=== PATIENT | female | born 1980 | race American Indian/Alaskan Native ===

== ENCOUNTER 2016-11-21 07:20 | Emergency (ER) | payer MEDICAID ==
[2016-11-21 08:30] LABS: Basophils % (Auto) 0.6 % (0.0-1.8); Eosinophils % (Auto) 1.9 % (0.0-4.3); Hemoglobin 12.7 gm/dl (10.1-14.3); Mean Corpuscular HGB Conc 33 % (30-34); Mean Corpuscular Hemoglobin 26 pg (28-32); Mean Corpuscular Volume 81 fl (79-97); Platelet Count 253 K/mm3 (140-440); Red Blood Count 4.83 M/mm3 (3.65-5.03); Red Cell Distribution Width 14.1 % (13.2-15.2); White Blood Count 5.2 K/mm3 (4.5-11.0)
[2016-11-21 08:31] LABS: Anion Gap 18 mmol/L; Blood Urea Nitrogen 6 mg/dL (7-17); Calcium 8.7 mg/dL (8.4-10.2); Carbon Dioxide 23 mmol/L (22-30); Chloride 101.8 mmol/L (98-107); Glucose 171 mg/dL (65-100); Potassium 3.9 mmol/L (3.6-5.0); Sodium 139 mmol/L (137-145)
[2016-11-21 09:21] LABS: Bilirubin,Urine NEG (Negative); Blood,Urine NEG (Negative); Ketones,Urine NEG (Negative); Leukocyte Esterase,Urine LG (Negative); Mucus,Urine FEW /HPF; Nitrite,Urine NEG (Negative); Protein,Urine <15 mg/dL mg/dL (Negative); Urobilinogen,Urine < 2.0 mg/dL (<2.0)
--- NOTE | 2016-11-21 11:36 | Ultrasound Report ---
TRANSABDOMINAL AND TRANSVAGINAL OBSTETRICAL ULTRASOUND:11/21/16 07:20:00 CLINICAL: Abdominal pain with a positive test. FINDINGS: Transabdominal and transvaginal ultrasound demonstrated a single intrauterine gestational sac measuring 5.4 mm and remain sac diameter. No yolk sac or pole identified. Cervix is closed. A posterior lower uterine segment intramural fibroid measures 3.0 cm. No adnexal mass or free fluid. A 1.5 cm cyst of the right ovary normal left ovary.The right ovary measured 3.4 x 2.6 x 3.3cm. The left ovary measured 2.5 x 1.8 x 3.4cm. IMPRESSION: Single intrauterine at approximately 5 weeks gestation based on gestational sac size. EDC based on ultrasound is 07/22/17. EDC based on LMP is 07/27/17.
[2016-11-21 12:32] VITALS: BP 121/66
--- NOTE | 2016-11-21 12:33 | Emergency Department Report ---
ED General Adult HPI - General Chief complaint: Abdominal Pain Stated complaint: / SEVERE CRAMPING Time Seen by Provider: 11/21/16 10:35 Source: patient Mode of arrival: Ambulatory Limitations: No Limitations - History of Present Illness Initial comments: The patient stated that she noted discomfort in her left inguinal area. She has not had a period this month. Therefore she decided to be evaluated in the emergency department. She denies fever chills nausea vomiting diarrhea or difficulty in urinating. She's had no dysuria. She denies vaginal bleeding. She is 5 now including this . At this time she is asymptomatic. -: Gradual Location: abdomen, left Radiation: non-radiation Quality: aching Consistency: now resolved Improves with: none Worsens with: none Associated Symptoms: denies other symptoms Treatments Prior to Arrival: none - Related Data Allergies Allergy/AdvReac Type Severity Reaction Status Date / Time No Known Allergies Allergy Unverified 11/21/16 07:48 ED Review of Systems ROS: Stated complaint: / SEVERE CRAMPING Other details as noted in HPI Constitutional: denies: chills, fever Eyes: denies: eye pain, eye discharge, vision change ENT: denies: ear pain, throat pain Respiratory: denies: cough, shortness of breath, wheezing Cardiovascular: denies: chest pain, palpitations Endocrine: no symptoms reported Gastrointestinal: as per HPI, abdominal pain. denies: nausea, diarrhea Genitourinary: denies: urgency, dysuria, discharge Musculoskeletal: denies: back pain, joint swelling, arthralgia Skin: denies: rash, lesions Neurological: denies: headache, weakness, paresthesias Psychiatric: denies: anxiety, depression Hematological/Lymphatic: denies: easy bleeding, easy bruising ED Past Medical Hx - Past Medical History Previous Medical History?: No - Surgical History Past Surgical History?: No - Social History Smoking Status: Never Smoker Substance Use Type: None ED Physical Exam - General Limitations: No Limitations General appearance: alert, in no apparent distress - Head Head exam: Present: atraumatic, normocephalic - Eye Eye exam: Present: normal appearance. Absent: scleral icterus - ENT ENT exam: Present: mucous membranes moist - Neck Neck exam: Present: normal inspection - Respiratory Respiratory exam: Present: normal lung sounds bilaterally. Absent: respiratory distress - Cardiovascular Cardiovascular Exam: Present: regular rate, normal rhythm. Absent: systolic murmur, diastolic murmur, rubs, gallop - GI/Abdominal GI/Abdominal exam: Present: soft, normal bowel sounds. Absent: distended, tenderness, guarding, rebound, rigid, organomegaly, mass, bruit, pulsatile mass , hernia - Extremities Exam Extremities exam: Present: normal inspection - Back Exam Back exam: Present: normal inspection - Neurological Exam Neurological exam: Present: alert, oriented X3, CN II-XII intact. Absent: motor sensory deficit - Psychiatric Psychiatric exam: Present: normal affect, normal mood - Skin Skin exam: Present: warm, dry, intact, normal color. Absent: rash ED Course Vital Signs 11/21/16 07:42 Temperature 98.2 F Pulse Rate 91 H Respiratory 18 Rate Blood Pressure 119/74 O2 Sat by Pulse 100 Oximetry - Reevaluation(s) Reevaluation #1: Patient is asymptomatic at this time. Her ultrasound result was noted. Most likely this is an early intrauterine . The patient will require follow -up ultrasound and perhaps quantitative hCGs. She was counseled as to the importance of follow-up. A urinalysis result is likely secondary to contamination. 11/21/16 12:29 11/21/16 12:30 ED Medical Decision Making - Lab Data Result diagrams: 11/21/16 07:56 11/21/16 07:56 Laboratory Results - last 24 hr 11/21/16 11/21/16 11/21/16 07:56 07:56 08:08 WBC 5.2 RBC 4.83 Hgb 12.7 Hct 39.0 MCV 81 MCH 26 L MCHC 33 RDW 14.1 Plt Count 253 Lymph % (Auto) 31.5 [place] % (Auto) 9.5 H Eos % (Auto) 1.9 Baso % (Auto) 0.6 Lymph # 1.6 [place] # 0.5 Eos # 0.1 Baso # 0.0 Seg Neutrophils % 56.5 Seg Neutrophils # 3.0 Sodium 139 Potassium 3.9 Chloride 101.8 Carbon Dioxide 23 Anion Gap 18 BUN 6 L Creatinine 0.6 L Estimated GFR > 60 BUN/Creatinine Ratio 10.00 Glucose 171 H Calcium 8.7 HCG, Quant Urine Color Yellow Urine Turbidity Slightly-cloudy Urine pH 5.0 Ur Specific [place] 1.025 Urine Protein <15 mg/dl Urine Glucose (UA) 50 Urine Ketones Neg Urine Blood Neg Urine Nitrite Neg Ur Reducing Substances Not Reportable Urine Bilirubin Neg Urine Ictotest Not Reportable Urine Urobilinogen < 2.0 Ur Leukocyte Esterase Lg Urine WBC (Auto) 19.0 H Urine RBC (Auto) 6.0 U Epithel Cells (Auto) 19.0 H Urine Mucus Few Urine HCG, Qual Positive A Blood Type Ord Rhogam Gestat Weeks 11/21/16 11/21/16 11:24 11:24 WBC RBC Hgb Hct MCV MCH MCHC RDW Plt Count Lymph % (Auto) [place] % (Auto) Eos % (Auto) Baso % (Auto) Lymph # [place] # Eos # Baso # Seg Neutrophils % Seg Neutrophils # Sodium Potassium Chloride Carbon Dioxide Anion Gap BUN Creatinine Estimated GFR BUN/Creatinine Ratio Glucose Calcium HCG, Quant 1083 H Urine Color Urine Turbidity Urine pH Ur Specific [place] Urine Protein Urine Glucose (UA) Urine Ketones Urine Blood Urine Nitrite Ur Reducing Substances Urine Bilirubin Urine Ictotest Urine Urobilinogen Ur Leukocyte Esterase Urine WBC (Auto) Urine RBC (Auto) U Epithel Cells (Auto) Urine Mucus Urine HCG, Qual Blood Type O POSITIVE Ord Rhogam Gestat Weeks Rh pos Critical care attestation.: If time is entered above; I have spent that time in minutes in the direct care of this critically ill patient, excluding procedure time. ED Disposition Clinical Impression: Intrauterine Abdominal pain Qualifiers: Abdominal location: left lower quadrant Qualified Code(s): R10.32 - Left lower quadrant pain Disposition: TO HOME OR SELFCARE Is pt being admited?: No Does the pt Need Aspirin: No Condition: Stable Instructions: Abdominal Pain (ED), (ED) Additional Instructions: You will require follow-up ultrasound, follow-up care and evaluation by OB. Return any acute change or problem. Referrals: PRIMARY MD CECELIA [Primary Care Provider] - 3-5 Days DANA LARA MD [Staff Physician] - 2-3 Days Time of Disposition: 12:33
== END 2016-11-21 13:06 | disposition home or self-care (01) ==
LOC: ED 07:20
DX: O26.891 Other specified pregnancy related conditions, first trimester (principal); R10.32 Left lower quadrant pain; Z3A.01 Less than 8 weeks gestation of pregnancy
CPT/HCPCS: 36415; 76801; 76817; 80048; 81001; 81025; 84702; 85025; 86900; 86901

== ENCOUNTER 2017-05-16 17:51 | Outpatient (CLI) | payer MEDICAID ==
[2017-05-16 18:27] VITALS: BP 117/56
[2017-05-16] MEDS ORDERED: LACTATED RINGERS 500 ML IV ONE (19:00)
[2017-05-16] MEDS ORDERED: VISTARIL PO PRN (19:51)
--- NOTE | 2017-05-16 20:01 | Ultrasound Report ---
FINAL REPORT PROCEDURE: US OB LIMITED TECHNIQUE: Real-time limited sonographic examination was performed for evaluation of size, position, heartbeat, fluid volume for each fetus with image documentation (1 or more fetuses). CPT 18985 HISTORY: s/p fall COMPARISON: No prior studies are available for comparison. FINDINGS: Single viable fetus. Cephalic position. Grade 1 anterior placenta. Heart rate 150 beats per minute. Cervical length 3.5 centimeters. No evidence of placental abruption. IMPRESSION: No evidence of placental abruption.
== END 2017-05-16 20:13 | disposition home or self-care (01) ==
LOC: TRG 17:51
PROVIDERS: ATTEND Obstetrics & Gynecology
DX: O09.523 Supervision of elderly multigravida, third trimester (principal); O47.03 False labor before 37 completed weeks of gestation, third trimester; W19.XXXD Unspecified fall, subsequent encounter; Z3A.29 29 weeks gestation of pregnancy
CPT/HCPCS: 76815; Q0177

== ENCOUNTER 2017-06-22 14:58 | Outpatient (CLI) | payer MEDICAID ==
[2017-06-22] MEDS ORDERED: LACTATED RINGERS 1,000 ML IV ONE ×2 (16:50→19:00)
[2017-06-22 17:40] LABS: Bacteria,Urine 2+ /HPF (Negative); Bilirubin,Urine NEG (Negative); Blood,Urine NEG (Negative); Color,Urine Yellow (Yellow); Mucus,Urine FEW /HPF; Nitrite,Urine NEG (Negative); Protein,Urine <15 mg/dL mg/dL (Negative); Urobilinogen,Urine < 2.0 mg/dL (<2.0)
[2017-06-22] MEDS ORDERED: TYLENOL PO ONE (19:08)
[2017-06-22 19:30] LABS: Alanine Aminotransferase 9 units/L (7-56); Albumin 3.2 g/dL (3.9-5); BUN/Creatinine Ratio 10; Blood Urea Nitrogen 5 mg/dL (7-17); Calcium 8.9 mg/dL (8.4-10.2); Hemolysis Index 0
[2017-06-22] MEDS ORDERED: STADOL ONE ×2 (19:33→22:38)
[2017-06-22] MEDS ORDERED: STADOL IV ONE (20:22)
--- NOTE | 2017-06-22 22:20 | Ultrasound Report ---
FINAL REPORT PROCEDURE: Limited obstetrical ultrasound. TECHNIQUE: Real-time limited sonographic examination was performed for evaluation of size, position, heartbeat, fluid volume for each fetus with image documentation (1 or more fetuses). CPT 69849 HISTORY: Gestational diabetes, noncompliant. COMPARISON: Limited obstetrical ultrasound 05/16/2017. FINDINGS: There is a single viable fetus in cephalic presentation. Cardiac activity is documented at 164 beats per minute. Amniotic fluid pockets were measured in four quadrants. The largest pocket measured 7.7 centimeters. The amniotic fluid index measures 22.8 centimeters. IMPRESSION: Single viable fetus in cephalic presentation. Amniotic fluid index of 22.8 centimeters.
--- NOTE | 2017-06-22 22:21 | Ultrasound Report ---
FINAL REPORT PROCEDURE: Ultrasound biophysical profile without nonstress test. TECHNIQUE: Sonographic evaluation for breathing, movement, tone, and amniotic fluid volume was performed. CPT 43496 HISTORY: Gestational diabetes mellitus, noncompliant with treatment. COMPARISON: None. FINDINGS: Amniotic fluid volume: 2. breathin. movement: 2. tone: 2. Score: 8 of 8. IMPRESSION: Normal biophysical profile.
[2017-06-22] MEDS ORDERED: STADOL IV PRN (22:37)
--- NOTE | 2017-06-22 23:56 | History and Physical Report ---
History of Present Illness Date of examination: 06/22/17 Chief complaint: NR NST in office and uterine contractions History of present illness: EDC Confirmation: 07/27/2017 Gestational Age: 5 weeks Past History : 6 Term Births: 3 Premature Births: 2 Living Children: 5 Para: 3 Mult. Births: 1 Prev : 0 Aborta: 1 Elect. Ab: 1 # 1 Delivery date: 1994 Weeks Gestation: 42 labor: no Delivery type: Delivery location: [place] Infant Sex: Female weight: 7#14 Comments: no complications # 2 Delivery date: 1998 Weeks Gestation: 16w Delivery type: D&E Delivery location: [place] Comments: quadruplets - was told "something was wrong with them and would need lifelong care" # 3 Delivery date: 2000 Weeks Gestation: 27 Delivery type: Delivery location: [place] Sex: male/female weight: 6#/4# Comments: Twins, confirmed: 27weeks, twin to twin transfusion, induced - born vaginally. # 4 Delivery date: 1999 Weeks Gestation: 40 labor: no Delivery type: Delivery location: [place] Infant Sex: Female weight: 7#14 Comments: no complications # 5 Delivery date: 2005 Weeks Gestation: 40 labor: no Delivery type: Delivery location: [place] Infant Sex: Male weight: 6#13 Comments: no complications Risk Factors: Smoked Tobacco Use: Never smoker Smokeless Tobacco Use: Never Passive smoke exposure: no Drug use: no HIV high-risk behavior: no Caffeine use: <1 drinks per day Alcohol use: no Exercise: no Seatbelt use: 100 % Family History Risk Factors: Family History of KS in females < 65 years old: no Family History of KS in males < 55 years old: no Dietary Counseling: pn yes Past Medical History: Negative Past Medical History Abnormal Pap Smear - abnormal cells 2014, no colpo or bx. f/u pap 2016 NL Past Surgical History: D&E for natually occuring quadruplets - patient states she was told they " all had problems and would need life long care." unsure on type of problem. patient states she was put to sleep and the babies were removed, she did not deliver. 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 patient states she was put to sleep and the babies were removed, she did not deliver. Abnormal PAP: yes Family Hx: mother - DM and HTN no known FX breast cancer Maternal aunt - stomach cancer Social Hx: Single [employer] no etoh/drugs/smoking Infection History Hx of STD: none HIV Risk Eval: no Hepatitis B Risk Eval: low risk Personal hx. of genital herpes: no Partner hx. of genital herpes: no Rash, Viral, or Febrile illness since last LMP? no Varicella/Chicken Pox Status: Previous Disease TB Risk: no Genetic History ADVANCED MATERNAL AGE Congenital Heart Defect: Mom: no Dad: no Alanis Disease: Mom: no Dad: no Thalassemia Mom: no Dad: no Neural Tube Defect Mom: no Dad: no Down's Syndrome Mom: no Dad: no Arnulfo-Sachs Mom: no Dad: no Sickle Cell Disease/Trait Mom: no Dad: no Hemophilia Mom: no Dad: no Muscular Dystrophy Mom: no Dad: no Cystic Fibrosis Mom: no Dad: no Mcclain Chorea Mom: no Dad: no Mental Retardation Mom: no Dad: no Fragile X Mom: no Dad: no Other Genetic/Chromosomal Disorder Mom: no Dad: no Child w/other defect Mom: yes Dad: no Other: see surgical hx Comments/Counseling: AMA Enviromental Exposures Xray Exposure: no Medication, drug, or alcohol use since LMP: no Chemical/Other Exposure: no Exposure to Cat Liter: no Hx of Parvovirus (Fifth Disease): no Occupational Exposure to Children: none Current Allergies (reviewed today): * LATEX (Critical) Past History - Obstetrical History Expected Date of Delivery: 07/27/17 Actual Gestation: 35 Week(s) 0 Day(s) : 7 Medications and Allergies Allergies Allergy/AdvReac Type Severity Reaction Status Date / Time No Known Allergies Allergy Verified 06/22/17 15:41 Home Medications Medication Instructions Recorded Confirmed Last Taken Type Amoxicillin [Amoxicillin] 1 tab PO BID 06/22/17 06/22/17 06/21/17 09:00 History 1 Insulin NPH Human Isophane 26 units SQ DAILY 06/22/17 06/22/17 06/21/17 20:30 History [Novolin N] 1 Insulin NPH Human Isophane 60 units SQ QAM 06/22/17 06/22/17 06/21/17 07:30 History [Novolin N] 1 Insulin Regular, Human Inj 26 units SQ QPM 06/22/17 06/22/17 06/21/17 20:30 History [NovoLIN R Inj] 1 Insulin Regular, Human Inj 32 units SQ QAM 06/22/17 06/22/17 06/21/17 07:30 History [NovoLIN R Inj] 1 Pnv,Calcium 72/Iron/Folic Acid 1 each PO DAILY 06/22/17 06/22/17 06/22/17 09:00 History [Preplus Ca-Fe 27 mg-FA 1 mg Tb] 1 Active Meds: Active Medications Butorphanol Tartrate (Stadol) 2 mg IV Q2H PRN PRN Reason: Labor Pain Last Admin: 06/22/17 22:40 Dose: 2 mg Review of Systems All systems: negative Genitourinary: contractions - Vital Signs Vital signs: Vital Signs Pulse BP 96 H 116/58 06/22/17 15:47 06/22/17 15:47 Temp Pulse Resp BP Pulse Ox 97.3 F L 99 H 20 132/70 06/22/17 19:15 06/22/17 19:46 06/22/17 19:15 06/22/17 19:46 - Physical Exam Genitourinary (Female): Positive: normal external genitalia, normal perenium - Obstetrical FHR: category 1 Uterine Contraction Monitor Mode: External Cervical Dilatation: 1 Cervical Effacement Percentage: 20 station: -4 Results Result Diagrams: 06/22/17 18:45 Abnormal lab results 06/22/17 06/22/17 Range/Units 16:30 18:45 BUN 5 L (7-17) mg/dL Creatinine 0.5 L (0.7-1.2) mg/dL POC Glucose 110 H (70-105) Alkaline Phosphatase 202 H (35-129) units/L Total Protein 5.8 L (6.3-8.2) g/dL Albumin 3.2 L (3.9-5) g/dL All other labs normal. Assessment and Plan - Patient Problems (1) 35 weeks gestation of Current Visit: Yes Status: Acute (2) Uterine contractions during Current Visit: Yes Status: Acute Plan to address problem: No cervical change, she continues to complain of painful contractions. She's admitted now for therapeutic rest (3) Gestational diabetes Current Visit: Yes Status: Chronic Qualifiers: Trimester: third trimester Plan to address problem: Continue accuchecks for now
[2017-06-23] MEDS ORDERED: PROCARDIA*For Tocolysis only PO SCH (03:00)
[2017-06-23] MEDS ORDERED: D50W (25GM) Syringe IV PRN ×3 (03:02→03:39)
[2017-06-23] MEDS: NOVOLOG SUB-Q SCH ×2 (03:59→07:56)
[2017-06-23] MEDS ORDERED: NOVOLOG SUB-Q SCH (04:00)
--- NOTE | 2017-06-23 07:02 | Progress Note ---
Assessment and Plan Pt observed overnight. Ctx irregular, mild, pt reports they do not feel like they did. SVE 1-2,30,-4 Discussed POC with . Pt OOB for AM care, Diet( consistent Carb). Pt is to keep her appt with [facility] today @ 1400. Cat 1 FHT Pt has appt with [facility] in 1 week. Subjective - Subjective Date of service: 06/23/17 (pt resting; states she feels much better) Patient reports: movement normal Objective - Vital Signs Vital Signs: Vital Signs - 12hr 06/22/17 06/22/17 19:15 19:46 Temperature 97.3 F L Pulse Rate 99 H 99 H Respiratory 20 Rate Blood Pressure 132/70 Blood Pressure 132/70 [Right] - Exam Breasts: deferred Cardiovascular: Regular rate Lungs: Clear to auscultation Abdomen: Present: normal appearance, soft. Absent: distention, tenderness Uterus: Present: normal FHR: auscultation normal, category 1 Uterine Contraction Monitor Mode: External Cervical Dilatation: 1.5 Cervical Effacement Percentage: 30 station: -4 Uterine Contraction Pattern: Irregular Uterine Tone Measurement Phase: Resting Uterine Contraction Intensity: Mild Extremities: edema Deep Tendon Reflex Grade: Normal +2 - Labs Labs: Abnormal Labs 06/22/17 06/22/17 06/23/17 16:30 18:45 02:24 BUN 5 L Creatinine 0.5 L POC Glucose 110 H 241 H Alkaline Phosphatase 202 H Total Protein 5.8 L Albumin 3.2 L Laboratory Results - last 24 hr 06/22/17 06/22/17 06/22/17 16:30 17:00 18:45 Sodium 140 Potassium 3.9 Chloride 101.3 Carbon Dioxide 22 Anion Gap 21 BUN 5 L Creatinine 0.5 L Estimated GFR > 60 BUN/Creatinine Ratio 10 Glucose 89 POC Glucose 110 H Calcium 8.9 Total Bilirubin 0.30 AST 11 ALT 9 Alkaline Phosphatase 202 H Total Protein 5.8 L Albumin 3.2 L Albumin/Globulin Ratio 1.2 Urine Color Yellow Urine Turbidity Clear Urine pH 6.0 Ur Specific [place] 1.011 Urine Protein <15 mg/dl Urine Glucose (UA) Neg Urine Ketones 20 Urine Blood Neg Urine Nitrite Neg Urine Bilirubin Neg Urine Urobilinogen < 2.0 Ur Leukocyte Esterase Tr Urine WBC (Auto) 2.0 Urine RBC (Auto) 2.0 U Epithel Cells (Auto) 2.0 Urine Bacteria (Auto) 2+ Urine Mucus Few 06/23/17 02:24 Sodium Potassium Chloride Carbon Dioxide Anion Gap BUN Creatinine Estimated GFR BUN/Creatinine Ratio Glucose POC Glucose 241 H Calcium Total Bilirubin AST ALT Alkaline Phosphatase Total Protein Albumin Albumin/Globulin Ratio Urine Color Urine Turbidity Urine pH Ur Specific [place] Urine Protein Urine Glucose (UA) Urine Ketones Urine Blood Urine Nitrite Urine Bilirubin Urine Urobilinogen Ur Leukocyte Esterase Urine WBC (Auto) Urine RBC (Auto) U Epithel Cells (Auto) Urine Bacteria (Auto) Urine Mucus
[2017-06-23 07:36] VITALS: BP 113/66
--- NOTE | 2017-06-23 08:11 | Discharge Summary ---
Providers - Providers Date of discharge: 06/23/17 (pt agrees with d/c; has appt with [facility] today @ 1400 ) Attending physician: ANNALISE RAMOS Primary care physician: ANNALISE RAMOS Hospitalization Reason for admission: contractions Condition: Good Hospital course: Pt sent from office with c/o pain and nonreactive NST . Pt noted to be having ctx. BPP 8/8 Therapeutic rest overnight BS monitored SS insulin Pt received dose this morning @ 0400 Fasting BS 149. Diet given AM care. D/C instructions given: keep appt with [facility] today and appt with our office in 1 week. Pt instructed to call with any concerns. Disposition: DC-01 TO HOME OR SELFCARE - Discharge Diagnoses (1) Uterine contractions during Status: Acute Core Measure Documentation - Palliative Care Palliative Care/ Comfort Measures: Not Applicable - Core Measures Any of the following diagnoses?: none - VTE Discharge Requirements Deep Vein Thrombosis/Pulmonary Embolism Present on Admission: No Has pt received <5 days of overlap therapy or INR<2.0: No Anticoagulant overlap therapy prescribed at discharge: No Contraindication No Overlap Therapy order at DC: Medical Contraindication - Acute [place] Discharge Requirements Aspirin at discharge: No Reason for no aspirin on DC: Medical contraindication JOLEEN/ARB for LVSD if EF <40%: Not Applicable Beta yovani at discharge: No Reason for no beta yovani on DC: Medical contraindication Statin for LDL = or >100 mg/dl on DC: Not Applicable - Heart Failure Discharge Requirements JOLEEN/ARB for LVSD if EF <40%: Not Applicable Beta yovani at discharge: No Reason for no beta yovani on DC: Medical contraindication - Stroke Discharge Requirements Statin for LDL = or >70 mg/dl on DC: Not Applicable Anticoag for atrial fib/atrial flutter: Not Applicable Antithrombotic for ischemic stroke: No Reason for no antithrombotic on DC: Medical Contraindication Exam - Constitutional Vitals: Temp Pulse Resp BP Pulse Ox 96.5 F L 99 H 24 113/66 06/23/17 07:36 06/23/17 07:39 06/23/17 07:36 06/23/17 07:39 General appearance: Present: no acute distress, well-nourished - EENT Eyes: Present: PERRL ENT: hearing intact, clear oral mucosa - Neck Neck: Present: supple, normal ROM - Respiratory Respiratory effort: normal Respiratory: bilateral: CTA - Cardiovascular Heart Sounds: Present: S1 & S2. Absent: rub, click - Extremities Extremities: pulses symmetrical, No edema Peripheral Pulses: within normal limits - Abdominal General gastrointestinal: Present: deferred Female genitourinary: Present: normal - Rectal Rectal Exam: deferred - Integumentary Integumentary: Present: clear, warm, dry - Musculoskeletal Musculoskeletal: gait normal, strength equal bilaterally - Psychiatric Psychiatric: appropriate mood/affect, intact judgment & insight - Neurologic Neurologic: CNII-XII intact, moves all extremities Plan Activity: no restrictions Weight Bearing Status: Weight Bear as Tolerated Diet: other (diabetic diet as instructed) Follow up with: ANNALISE RAMOS MD [Primary Care Provider] - 06/29/17 3:30 pm (Keep appointment with [facility] today. Monitor blood sugars as instructed. Monitor movement. Keep appointment Wednesday06-29-17 @ 3:30PM in our office. Call with concerns.) Forms: [facility] Discharge Summary
[2017-06-23] MEDS ORDERED: CELESTONE SOLUSPAN IM SCH (10:00)
== END 2017-06-23 08:59 | disposition home or self-care (01) ==
LOC: TRG 14:58 → LD 14:59 → TRG 06-23 08:59
PROVIDERS: ATTEND Obstetrics & Gynecology
DX: O09.523 Supervision of elderly multigravida, third trimester (principal); O24.419 Gestational diabetes mellitus in pregnancy, unspecified control; O62.9 Abnormality of forces of labor, unspecified; O47.03 False labor before 37 completed weeks of gestation, third trimester; Z3A.35 35 weeks gestation of pregnancy
CPT/HCPCS: 36415; 76815; 76819; 80053; 81001; 82962; 96360; J0595; J7120; J1815

== ENCOUNTER 2017-06-26 12:01 | Outpatient (CLI) | payer MEDICAID ==
[2017-06-26] MEDS ORDERED: LACTATED RINGERS 500 ML IV ONE (12:19)
[2017-06-26] MEDS ORDERED: VISTARIL IM ONE (12:51)
--- NOTE | 2017-06-26 12:59 | History and Physical Report ---
History of Present Illness Date of examination: 06/26/17 (called urgently to parking lot pt delivering in the car; walked to stretcher) Chief complaint: pain is "pulling me a part" History of present illness: EDC Confirmation: 07/27/2017 Gestational Age: 5 weeks Past History : 6 Term Births: 3 Premature Births: 2 Living Children: 5 Para: 3 Mult. Births: 1 Prev : 0 Aborta: 1 Elect. Ab: 1 # 1 Delivery date: 1994 Weeks Gestation: 42 labor: no Delivery type: Delivery location: [facility] Sex: Female weight: 7#14 Comments: no complications # 2 Delivery date: 1998 Weeks Gestation: 16w Delivery type: D&E Delivery location: [place] Comments: quadruplets - was told "something was wrong with them and would need lifelong care" # 3 Delivery date: 2000 Weeks Gestation: 27 Delivery type: Delivery location: [facility] Sex: male/female weight: 6#/4# Comments: Twins, confirmed: 27weeks, twin to twin transfusion, induced - born vaginally. # 4 Delivery date: 1999 Weeks Gestation: 40 labor: no Delivery type: Delivery location: [place] Sex: Female weight: 7#14 Comments: no complications # 5 Delivery date: 2005 Weeks Gestation: 40 labor: no Delivery type: Delivery location: [place] Sex: Male weight: 6#13 Comments: no complications Risk Factors: Smoked Tobacco Use: Never smoker Smokeless Tobacco Use: Never Passive smoke exposure: no Drug use: no HIV high-risk behavior: no Caffeine use: <1 drinks per day Alcohol use: no Exercise: no Seatbelt use: 100 % Family History Risk Factors: Family History of MD in females < 65 years old: no Family History of MD in males < 55 years old: no Dietary Counseling: pn yes Past Medical History: Negative Past Medical History Abnormal Pap Smear - abnormal cells 2014, no colpo or bx. f/u pap 2016 NL Past Surgical History: D&E for natually occuring quadruplets - patient states she was told they " all had problems and would need life long care." unsure on type of problem. patient states she was put to sleep and the babies were removed, she did not deliver. 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 patient states she was put to sleep and the babies were removed, she did not deliver. Abnormal PAP: yes Family Hx: mother - DM and HTN no known FX breast cancer Maternal aunt - stomach cancer Social Hx: Single [employer] no etoh/drugs/smoking Infection History Hx of STD: none HIV Risk Eval: no Hepatitis B Risk Eval: low risk Personal hx. of genital herpes: no Partner hx. of genital herpes: no Rash, Viral, or Febrile illness since last LMP? no Varicella/Chicken Pox Status: Previous Disease TB Risk: no Genetic History ADVANCED MATERNAL AGE Congenital Heart Defect: Mom: no Dad: no Alanis Disease: Mom: no Dad: no Thalassemia Mom: no Dad: no Neural Tube Defect Mom: no Dad: no Down's Syndrome Mom: no Dad: no Arnuflo-Sachs Mom: no Dad: no Sickle Cell Disease/Trait Mom: no Dad: no Hemophilia Mom: no Dad: no Muscular Dystrophy Mom: no Dad: no Cystic Fibrosis Mom: no Dad: no Regina Chorea Mom: no Dad: no Mental Retardation Mom: no Dad: no Fragile X Mom: no Dad: no Other Genetic/Chromosomal Disorder Mom: no Dad: no Child w/other defect Mom: yes Dad: no Other: see surgical hx Comments/Counseling: AMA Enviromental Exposures Xray Exposure: no Medication, drug, or alcohol use since LMP: no Chemical/Other Exposure: no Exposure to Cat Liter: no Hx of Parvovirus (Fifth Disease): no Occupational Exposure to Children: none Current Allergies (reviewed today): * LATEX (Critical) Laboratory Results Routine Urinalysis Leukocytes: negative Nitrite: negative Urobilinogen: negative Protein: Negative Blood: negative Ketone: negative Bilirubin: negative Glucose: Negative Urine HCG: positive Review of Systems General Denies fever, chills, sweats, anorexia, fatigue, weakness, malaise, weight loss and sleep disorder. Denies nausea, vomiting, headache, swelling of legs, abdominal pain, vaginal discharge, vaginal bleeding and contractions. Denies vaginal discharge, incontinence, dysuria, hematuria, urinary frequency, amenorrhea, menorrhagia, abnormal vaginal bleeding, pelvic pain, genital sores, decreased libido, painful periods, painful sex, urinary urgency, hot flashes, vaginal dryness, vaginal itching and vaginal odor. CV Denies chest pains, palpitations, syncope, dyspnea on exertion, orthopnea, PND and peripheral edema. Resp Denies cough, dyspnea at rest, excessive sputum, hemoptysis, wheezing and pleurisy. GI Denies nausea, vomiting, diarrhea, constipation, change in bowel habits, abdominal pain, melena, hematochezia, jaundice, gas/bloating, indigestion/ heartburn, dysphagia and odynophagia. Endo Denies cold intolerance, heat intolerance, polydipsia, polyphagia, polyuria and unusual weight change. Breast Denies left breast lump, right breast lump, nipple discharge, bloody discharge from nipple, breast pain, abnormal mammogram and breast enlargement. MS Denies back pain, joint pain, joint swelling, muscle cramps, muscle weakness, stiffness, arthritis, sciatica, restless legs, leg pain at night and leg pain with exertion. Derm Denies rash, itching, dryness and suspicious lesions. Neuro Denies paralysis, paresthesias, headache, seizures, tremors, vertigo, transient blindness, frequent falls, frequent headaches and difficulty walking. Psych Denies depression, anxiety, irritability and mood swings. Eyes Denies blurring, diplopia, irritation, discharge, vision loss, eye pain and photophobia. ENT Denies earache, ear discharge, tinnitus, decreased hearing, nasal congestion, nosebleeds, sore throat and hoarseness. Allergy Denies urticaria, allergic rash, hay fever and recurrent infections. Heme Denies abnormal bruising, bleeding and enlarged lymph nodes. PHYSICAL EXAM HEENT: PERRLA, normal conjunctiva, external nose and nasal mucosa normal, oropharynx clear Neck/Thyroid: supple, thyroid normal Skin no significant abnormal lesions or rashes Chest: respiratory effort normal, clear to auscultation Breasts: normal without skin changes or masses CV: regular, normal S1-S2, no murmur, no rub, no gallop Abdomen: normal bowel sounds, soft, nontender, no HSM Musculoskeletal: grossly normal ROM in joints, no joint tenderness or muscle weakness Neuro: grossly normal DTRs, sensation, strength, cranial nerves Extremities: no clubbing, cyanosis, or edema [employer] Exams Vulva/Vagina: No lesions, normal BUS, normal rugae Cervix: No lesions; no cervical motion tenderness Uterus: normal size and position, midline, mobile FHT: - Adnexae: no masses or tenderness Rectovaginal: no masses or tenderness Past History - Obstetrical History Expected Date of Delivery: 07/27/17 Actual Gestation: 35 Week(s) 4 Day(s) : 6 Para: 4 Hx # Term Pregnancies: 3 Number of Pregnancies: 1 (twins) Induced : 1 Number of Living Children: 5 Medications and Allergies Allergies Allergy/AdvReac Type Severity Reaction Status Date / Time No Known Allergies Allergy Verified 06/22/17 15:41 Home Medications Medication Instructions Recorded Confirmed Last Taken Type Amoxicillin [Amoxicillin] 1 tab PO BID 06/22/17 06/22/17 06/21/17 09:00 History 1 Insulin NPH Human Isophane 26 units SQ DAILY 06/22/17 06/22/17 06/21/17 20:30 History [Novolin N] 1 Insulin NPH Human Isophane 60 units SQ QAM 06/22/17 06/22/17 06/21/17 07:30 History [Novolin N] 1 Insulin Regular, Human Inj 26 units SQ QPM 06/22/17 06/22/17 06/21/17 20:30 History [NovoLIN R Inj] 1 Insulin Regular, Human Inj 32 units SQ QAM 06/22/17 06/22/17 06/21/17 07:30 History [NovoLIN R Inj] 1 Pnv,Calcium 72/Iron/Folic Acid 1 each PO DAILY 06/22/17 06/22/17 06/22/17 09:00 History [Preplus Ca-Fe 27 mg-FA 1 mg Tb] 1 Active Meds: Active Medications Lactated Ringer's (Lactated Ringers) 1,000 mls @ 125 mls/hr IV DIRECT DANIELITO - Vital Signs Vital signs: Vital Signs Pulse Pulse Ox 100 H 95 06/26/17 12:11 06/26/17 12:11 Temp Pulse Resp BP Pulse Ox 99 H 124/70 98 06/26/17 12:36 06/26/17 12:14 06/26/17 12:36 - Physical Exam Breasts: Positive: deferred Cardiovascular: Regular rate Lungs: Positive: Clear to auscultation, Normal air movement Abdomen: Positive: normal appearance, soft Genitourinary (Female): Positive: normal external genitalia, normal perenium Vulva: both: normal Vagina: Positive: normal moisture Uterus: Positive: normal size, normal contour Anus/Rectum: Positive: normal perianal skin Extremities: Positive: edema Deep Tendon Reflex Grade: Normal +2 - Obstetrical FHR: category 1 Uterine Contraction Monitor Mode: External Cervical Dilatation: 3 Cervical Effacement Percentage: 50 station: -3 Uterine Contraction Pattern: Irregular Uterine Contraction Intensity: Mild Results Result Diagrams: 06/26/17 13:00 All other labs normal. Strep Gp B CONNIE Negative HBsAg Screen Negative Negative *1 Rubella Antibodies, IgG 1.43 index Immune >0.99 *2 Non-immune <0.90 Equivocal 0.90 - 0.99 Immune >0.99 ABO Grouping O *3 Rh Factor Positive *4 Please note: Prior records for this patient's ABO / Rh type are not available for additional verification. Antibody Screen Negative Negative *5 RPR Non Reactive Non Reactive *6 WBC 4.6 x10E3/uL 3.4-10.8 *7 RBC 4.46 x10E6/uL 3.77-5.28 *8 Hemoglobin 11.5 g/dL 11.1-15.9 *9 Hematocrit 35.8 % 34.0-46.6 *10 MCV 80 fL 79-97 *11 MCH [L] 25.8 pg 26.6-33.0 *12 MCHC 32.1 g/dL 31.5-35.7 *13 RDW 14.5 % 12.3-15.4 *14 Platelets 228 x10E3/uL 150-379 *15 Neutrophils 55 % *16 Lymphs 32 % *17 Monocytes 11 % *18 Eos 2 % *19 Basos 0 % *20 ! Immature Cells <No Reported Value> *21 Neutrophils (Absolute) 2.5 x10E3/uL 1.4-7.0 *22 Lymphs (Absolute) 1.5 x10E3/uL 0.7-3.1 *23 Monocytes(Absolute) 0.5 x10E3/uL 0.1-0.9 *24 Eos (Absolute) 0.1 x10E3/uL 0.0-0.4 *25 Baso (Absolute) 0.0 x10E3/uL 0.0-0.2 *26 ! Immature Granulocytes 0 % *27 ! Immature Grans (Abs) 0.0 x10E3/uL 0.0-0.1 *28 ! NRBC <No Reported Value> *29 Hematology Comments: <No Reported Value> *30 Tests: (2) Cystic Fibrosis Profile (112350) ! CF, Screen Comment: *31 RESULTS: Negative for 32 mutations analyzed Tests: (3) HB Solu + Rflx Frac (490376) Hemoglobin (Hgb) Solubility Negative Negative *33 Tests: (4) Panel 777537 ([id number]) HIV Screen 4th Generation wRfx Non Reactive Non Reactive *34 Tests: (5) HCV Ab w/Rflx to Verification (510250) ! HCV Ab 0.1 s/co ratio 0.0-0.9 *35 Tests: (6) Comment: (027278) ! Comment: SPRCS *36 Non reactive HCV antibody screen is consistent with no HCV infection, unless recent infection is suspected or other evidence exists to indicate HCV infection. Tests: (7) Urine Culture, Routine (500297) Urine Culture, Routine Final report *37 Tests: (8) Result ([id number]) ! Result 1 MUG *38 Mixed urogenital jose Greater than 100,000 colony forming units per mL Assessment and Plan 37yo @ 35w4d who arrived by car Her SO came in asking for assistance she was delivering in the car. Pt screaming and thrashing about, denies ROM, Assisted by myself and another RN to Triage bed. SVE 3,50,-3 Pt continues scream out of proportion to assessed pain. EFM on irreg ctx recorded Cat 1 FHR tracing. made aware of pt and her status. US ordered, Labs ordered , IVFs. Vistaril 100mg IM. Pt states she has not had any insulin today. BS 127 Also states told her she had fibroids.(This was not told to us nor M). Re-eval after US - Patient Problems (1) Abdominal pain during in third trimester Onset Date: ~06/26/17 Current Visit: Yes Status: Acute (2) Insulin controlled gestational diabetes mellitus (GDM) in third trimester Onset Date: ~06/26/17 Current Visit: Yes Status: Acute (3) 35 weeks gestation of Onset Date: ~06/26/17 Current Visit: Yes Status: Acute
[2017-06-26] MEDS ORDERED: LACTATED RINGERS 1,000 ML IV SCH (13:00)
[2017-06-26 13:22] LABS: Basophils % (Auto) 0.5 % (0.0-1.8); Eosinophils # (Auto) 0.1 K/mm3 (0.0-0.4); Eosinophils % (Auto) 1.1 % (0.0-4.3); Hematocrit 39.4 % (30.3-42.9); Hemoglobin 12.8 gm/dl (10.1-14.3); Lymphocytes # (Auto) 1.2 K/mm3 (1.2-5.4); Lymphocytes % (Auto) 25.9 % (13.4-35.0); Mean Corpuscular HGB Conc 33 % (30-34); Mean Corpuscular Volume 79 fl (79-97); Monocytes # (Auto) 0.6 K/mm3 (0.0-0.8); Monocytes % (Auto) 13.1 % (0.0-7.3); Platelet Count 235 K/mm3 (140-440); Red Blood Count 4.99 M/mm3 (3.65-5.03); Red Cell Distribution Width 15.1 % (13.2-15.2)
[2017-06-26 13:30] LABS: Bacteria,Urine 1+ /HPF (Negative); Bilirubin,Urine NEG (Negative); Blood,Urine NEG (Negative); Color,Urine Yellow (Yellow); Mucus,Urine FEW /HPF; Protein,Urine <15 mg/dL mg/dL (Negative); Urobilinogen,Urine < 2.0 mg/dL (<2.0)
[2017-06-26 13:31] LABS: Mean Corpuscular Hemoglobin 26 pg (28-32)
[2017-06-26 13:42] LABS: Amphetamine Screen,Urine PRESUMPTIVE NEGATIVE; Benzodiazepines Screen,Urine PRESUMPTIVE NEGATIVE; Cannabinoid Screen,Urine PRESUMPTIVE NEGATIVE; Cocaine Screen,Urine PRESUMPTIVE NEGATIVE; Methadone Screen,Urine PRESUMPTIVE NEGATIVE; Opiate Screen,Urine PRESUMPTIVE NEGATIVE
[2017-06-26] MEDS ORDERED: MORPHINE IM ONE ×2 (14:12→15:00)
--- NOTE | 2017-06-26 14:25 | Ultrasound Report ---
FINAL REPORT EXAM: US OB BPP WO NON-STRESS HISTORY: well being TECHNIQUE: Ultrasound examination of the gravid uterus for biophysical profile evaluation of the fetus PRIORS: 06/30/2017 FINDINGS: There is a single viable intrauterine with documented cardiac activity. The amniotic fluid volume is normal. heart rate: 145 and 157 bpm Amniotic fluid index: 12.9 cm position: Cephalic Placental position: Anterior grade 3 Evaluation for biophysical profile yields the following score as reported by technologist from real-time exam: respiratory motion (minimum one episode): 2 Gross body movement (minimum 3 movements): 2 tone (minimum one flexion and extension): 2 Amniotic fluid volume (at least 2 cm pocket in vertical diameter): 2 IMPRESSION: Single viable intrauterine with 8/8 biophysical profile score during the sonographic evaluation
--- NOTE | 2017-06-26 14:34 | Ultrasound Report ---
FINAL REPORT EXAM: US OB FOLLOW UP HISTORY: well being; abdominal pain TECHNIQUE: Ultrasound evaluation of the gravid uterus PRIORS: 06/22/2017 FINDINGS: There is a single viable intrauterine with documented cardiac activity. Multiple ultrasound measurements are made to determine a composite gestational age. Nonspecific slightly low HC/AC ratio of 0.89 with normal lower limit of 0.93. Nonspecific slightly low FL/AC ratio of 18.9 with lower limit of 20.0. Other ratios are within normal limits. There is no ultrasound evidence of placenta previa or abruption in the visualized placenta. The maternal cervix is obscured by head. The quantity of visualized amniotic fluid appears grossly normal. No sonographic abnormality in the visualized portion of the anatomy. Heart rate: 145 and 157 beats per minute position: Cephalic Placental position: Anterior, grade 3 Amniotic fluid index: 12.9cm Estimated weight: 3941 g Ultrasound estimated gestational age: 38 weeks 5 days Ultrasound estimated delivery date: 07/05/2017 LMP estimated gestational age: 35 weeks 4 days LMP estimated delivery date: 07/27/2017 IMPRESSION: Single viable intrauterine with the above parameters Nonspecific slightly low ratios
[2017-06-26 15:05] VITALS: BP 100/49
--- NOTE | 2017-06-26 16:13 | Discharge Summary ---
Providers - Providers Date of discharge: 06/26/17 (abdominal pain not labor) Attending physician: ARLETTE MEJIA Primary care physician: ARLETTE MEJIA Hospitalization Reason for admission: other (pain) Discharge diagnosis: other (resolution of pain after IM Morphine) Condition at discharge: Good Disposition: DC-01 TO HOME OR SELFCARE - Discharge Diagnoses (1) Abdominal pain during in third trimester Status: Acute (2) Insulin controlled gestational diabetes mellitus (GDM) in third trimester Status: Acute (3) 35 weeks gestation of Status: Acute Plan - Discharge Medications Prescriptions: hydrOXYzine PAMOATE [Vistaril] 25 mg PO BID PRN #15 capsule PRN Reason: Pain - Provider Discharge Summary Activity: routine, no sex for 6 weeks, no heavy lifting 4 weeks, no strenuous exercise Diet: routine Instructions: routine Additional instructions: [] Smoking cessation referral if applicable(refer to patient education folder for contact #) [] Refer to [facility] Booklet Call your doctor immediately for: * Fever > 100.5 * Heavy vaginal bleeding ( >1 pad per hour) * Severe persistent headache * Shortness of breath * Reddened, hot, painful area to leg or breast * Drainage or odor from incision. * Keep incision clean and dry at all times and follow doctor's instructions regarding bathing/showering - Follow up plan Follow up: ARLETTE MEJIA MD [Primary Care Provider] - 06/29/17 3:30 pm (Keep appointment as scheduled with [facility] and in our office 06-29-17 Take medication as prescribed Call with concerns)
== END 2017-06-26 16:47 | disposition home or self-care (01) ==
LOC: TRG 12:01 → LD 13:09 → TRG 16:47
PROVIDERS: ATTEND Obstetrics & Gynecology
DX: O26.893 Other specified pregnancy related conditions, third trimester (principal); R10.9 Unspecified abdominal pain; O47.1 False labor at or after 37 completed weeks of gestation; Z79.899 Other long term (current) drug therapy; Z3A.38 38 weeks gestation of pregnancy
CPT/HCPCS: 36415; 59025; 76816; 76819; 80307; 81001; 82962; 85025; 86850; 86900; 86901; 96360; 96361; 96372; J2270; J3410; J7120

== ENCOUNTER 2017-12-06 20:38 | Emergency (ER) | payer MEDICAID, OTHER ==
[2017-12-06] MEDS ORDERED: NACL 0.9% 1000 ML 1,000 ML IV ONE (22:13)
[2017-12-06 22:37] LABS: Basophils % (Auto) 0.7 % (0.0-1.8); Eosinophils # (Auto) 0.1 K/mm3 (0.0-0.4); Eosinophils % (Auto) 1.2 % (0.0-4.3); Hematocrit 40.1 % (30.3-42.9); Hemoglobin 13.7 gm/dl (10.1-14.3); Lymphocytes # (Auto) 1.9 K/mm3 (1.2-5.4); Lymphocytes % (Auto) 39.4 % (13.4-35.0); Mean Corpuscular HGB Conc 34 % (30-34); Mean Corpuscular Hemoglobin 28 pg (28-32); Mean Corpuscular Volume 82 fl (79-97); Monocytes # (Auto) 0.5 K/mm3 (0.0-0.8); Monocytes % (Auto) 9.3 % (0.0-7.3); Platelet Count 236 K/mm3 (140-440); Red Cell Distribution Width 12.9 % (13.2-15.2)
[2017-12-06 22:40] LABS: INR 0.93 (0.87-1.13); Partial Thromboplastin Time 28.7 Sec. (24.2-36.6)
[2017-12-06 22:53] LABS: Alanine Aminotransferase 17 units/L (7-56); Albumin 4.3 g/dL (3.9-5); BUN/Creatinine Ratio 12; Blood Urea Nitrogen 7 mg/dL (7-17); Calcium 9.2 mg/dL (8.4-10.2); Hemolysis Index 8; Lipase 35 units/L (13-60)
[2017-12-06] MEDS ORDERED: TYLENOL PO ONE (23:59)
[2017-12-06] MEDS ORDERED: TORADOL IV ONE (23:59)
[2017-12-06] MEDS ORDERED: ZOFRAN ODT PO ONE (23:59)
--- NOTE | 2017-12-07 00:17 | Emergency Department Report ---
<CHLOÉ HICKS - Last Filed: 12/07/17 02:43> ED Abdominal Pain HPI - General Chief Complaint: GI Bleed Stated Complaint: ABD PAIN/DIZZINESS/WEAKNESS Time Seen by Provider: 12/06/17 23:14 Source: patient Mode of arrival: Ambulatory Limitations: No Limitations - History of Present Illness Initial Comments: 1 week of intermittent generalized, nonradiating abd pain. Associated with N and 1 episode of emesis 3 days ago. 2 days ago, started having blood BMs (~5 per day). No urinary symptoms. Made worse with food. No fam hx of IBD. No recent travel or abx. Has been feeling lightheaded and weak lately. - Related Data Home Medications Medication Instructions Recorded Confirmed Last Taken Amoxicillin 1 tab PO BID 06/22/17 07/07/17 06/21/17 09:00 1 Insulin NPH Human Isophane 26 units SQ DAILY 06/22/17 07/07/17 06/21/17 20:30 [Novolin N] 1 Insulin NPH Human Isophane 60 units SQ QAM 06/22/17 07/07/17 06/21/17 07:30 [Novolin N] 1 Insulin Regular, Human Inj 26 units SQ QPM 06/22/17 07/07/17 06/21/17 20:30 [NovoLIN R Inj] 1 Insulin Regular, Human Inj 32 units SQ QAM 06/22/17 07/07/17 06/21/17 07:30 [NovoLIN R Inj] 1 Pnv,Calcium 72/Iron/Folic Acid 1 each PO DAILY 06/22/17 07/07/17 06/22/17 09:00 [Preplus Ca-Fe 27 mg-FA 1 mg Tb] 1 Previous Rx's Medication Instructions Recorded Last Taken Type hydrOXYzine PAMOATE [Vistaril] 25 mg PO BID PRN #15 capsule 06/26/17 Unknown Rx Ibuprofen [Motrin 800 MG tab] 800 mg PO Q8HR PRN #30 tablet 07/07/17 Unknown Rx Lidocain2.5%/Prilocai2.5% [Emla] 5 gm TP ONCE PRN #1 tube 07/07/17 Unknown Rx Ondansetron [Zofran Odt] 4 mg PO Q8H PRN #12 tab.rapdis 12/07/17 Unknown Rx Allergies Allergy/AdvReac Type Severity Reaction Status Date / Time No Known Allergies Allergy Verified 06/22/17 15:41 ED Review of Systems ROS: Stated complaint: ABD PAIN/DIZZINESS/WEAKNESS Other details as noted in HPI Comment: All other systems reviewed and negative Constitutional: weakness Gastrointestinal: abdominal pain, nausea, vomiting, hematochezia ED Past Medical Hx - Past Medical History Hx Hypertension: No Hx Congestive Heart Failure: No Hx Diabetes: Yes Hx Deep Vein Thrombosis: No Hx Renal Disease: No Hx Sickle Cell Disease: No Hx Seizures: No Hx Asthma: No Hx COPD: No Hx HIV: No - Surgical History Past Surgical History?: No - Social History Smoking Status: Never Smoker Substance Use Type: None - Medications Home Medications: Home Medications Medication Instructions Recorded Confirmed Last Taken Type Amoxicillin 1 tab PO BID 06/22/17 07/07/17 06/21/17 09:00 History 1 Insulin NPH Human Isophane 26 units SQ DAILY 06/22/17 07/07/17 06/21/17 20:30 History [Novolin N] 1 Insulin NPH Human Isophane 60 units SQ QAM 06/22/17 07/07/17 06/21/17 07:30 History [Novolin N] 1 Insulin Regular, Human Inj 26 units SQ QPM 06/22/17 07/07/17 06/21/17 20:30 History [NovoLIN R Inj] 1 Insulin Regular, Human Inj 32 units SQ QAM 06/22/17 07/07/17 06/21/17 07:30 History [NovoLIN R Inj] 1 Pnv,Calcium 72/Iron/Folic Acid 1 each PO DAILY 06/22/17 07/07/17 06/22/17 09:00 History [Preplus Ca-Fe 27 mg-FA 1 mg Tb] 1 hydrOXYzine PAMOATE [Vistaril] 25 mg PO BID PRN #15 capsule 06/26/17 07/07/17 Unknown Rx Ibuprofen [Motrin 800 MG tab] 800 mg PO Q8HR PRN #30 tablet 07/07/17 Unknown Rx Lidocain2.5%/Prilocai2.5% [Emla] 5 gm TP ONCE PRN #1 tube 07/07/17 Unknown Rx Ondansetron [Zofran Odt] 4 mg PO Q8H PRN #12 tab.rapdis 12/07/17 Unknown Rx ED Physical Exam - General Limitations: No Limitations General appearance: alert, in no apparent distress - Head Head exam: Present: atraumatic, normocephalic - Eye Eye exam: Present: normal appearance - ENT ENT exam: Present: mucous membranes moist - Neck Neck exam: Present: normal inspection - Respiratory Respiratory exam: Present: normal lung sounds bilaterally. Absent: respiratory distress - Cardiovascular Cardiovascular Exam: Present: regular rate, normal rhythm. Absent: systolic murmur, diastolic murmur, rubs, gallop - GI/Abdominal GI/Abdominal exam: Present: soft, tenderness (generalized), normal bowel sounds. Absent: guarding, rebound, rigid - Rectal Rectal exam: Present: heme (-) stool - Extremities Exam Extremities exam: Present: normal inspection - Back Exam Back exam: Present: normal inspection - Neurological Exam Neurological exam: Present: alert, oriented X3 - Psychiatric Psychiatric exam: Present: normal affect, normal mood - Skin Skin exam: Present: warm, dry, intact, normal color. Absent: rash ED Course Vital Signs 12/06/17 21:40 Temperature 98.3 F Pulse Rate 95 H Respiratory 18 Rate Blood Pressure 135/73 O2 Sat by Pulse 99 Oximetry ED Medical Decision Making - Lab Data Result diagrams: 12/06/17 22:19 12/06/17 22:19 - EKG Data EKG shows normal: sinus rhythm, axis, intervals, QRS complexes Rate: normal - EKG Data Interpretation: nonspecific ST-T wave brian - Medical Decision Making 37 yo female with no sig pmhx that p/w abd pain and bloody diarrhea. VSS. Pt is well appearing. Mild abd pain on exam. Lab work, including inflammatory markers are negative. Hgb is 14. Guaiac is negative. Waiting for the results of her UA and CT a/p. Low suspicion for emergent pathology. Likely pt has viral enterocolitis and will need conservative management and out-patient follow up. She has been signed out to Dr. Lawson. - Differential Diagnosis crohn's, uc, EHEC, PUD, gastritis, malignancy, coagulopathy Critical care attestation.: If time is entered above; I have spent that time in minutes in the direct care of this critically ill patient, excluding procedure time. ED Disposition Clinical Impression: Bloody diarrhea Disposition: DC-01 TO HOME OR SELFCARE Is pt being admited?: No Does the pt Need Aspirin: No Condition: Stable Instructions: Infectious Colitis (ED) Additional Instructions: It is likely that your symptoms are caused by a virus and should improve in the next 2-3 days. Focus on staying hydrated during this time. If your symptoms don' t improve follow up with the [facility] for re-evaluation. You can take 975 mg tylenol every 6 hours as needed for pain relief. You can take [id number] imodium to help slow your diarrhea. Take an [id number] probiotic daily until your diarrhea improves. Prescriptions: Ondansetron [Zofran Odt] 4 mg PO Q8H PRN #12 tab.rapdis PRN Reason: Nausea Referrals: PRIMARY CARE,MD [Primary Care Provider] - 3-5 Days Forms: Accompanied Note <MIKI FERRER - Last Filed: 12/07/17 03:34> ED Medical Decision Making - Lab Data Result diagrams: 12/06/17 22:19 12/06/17 22:19 ED Disposition Is pt being admited?: No
[2017-12-07] MEDS ORDERED: TORADOL ONE (02:31)
[2017-12-07] MEDS ORDERED: TYLENOL ONE (02:32)
[2017-12-07] MEDS ORDERED: ZOFRAN ODT ONE (02:32)
--- NOTE | 2017-12-07 03:21 | Cat Scan Report ---
FINAL REPORT EXAM: CT ABDOMEN PELVIS W CON HISTORY: generalized abd pain COMPARISON: None available. TECHNIQUE: Contiguous axial images were obtained. Additional sagittal and coronal reformatted images were obtained. Administration of IV contrast given per institution protocol. Images submitted for interpretation. 100 cc Omnipaque [id number]. FINDINGS: Trace bilateral pleural effusions versus pleural thickening with linear atelectasis or scarring at the lung bases. Findings are more pronounced on the left. Cholelithiasis. No gross focal inflammatory changes the gallbladder or biliary dilatation. Mild diffuse fatty infiltration of the liver. Liver is mildly enlarged measuring 25 centimeters in axial dimension. Spleen and pancreas unremarkable. No adrenal mass. No solid renal lesion or hydronephrosis. 5 millimeter right renal cyst. Aorta and IVC are normal in caliber. Urinary bladder is unremarkable. Heterogeneous enhancement the uterus with probable underlying fibroids. Ovaries are grossly unremarkable. No free fluid or lymphadenopathy in the pelvic cavity. The appendix is normal in caliber measuring 5-6 millimeters in diameter. The appendix is best visualized on the coronal images. No adjacent fat stranding or fluid. Large and small bowel loops normal in caliber. No focal inflammatory changes the bowel. Mild to moderate degenerative changes of the lumbar spine. Lumbar vertebral body heights are preserved. Bony pelvis is grossly intact. IMPRESSION: No focal inflammatory changes of the abdomen and pelvis. Large and small bowel loops normal in caliber. The appendix is normal in caliber. No obstructive uropathy. Cholelithiasis. No gross focal inflammatory changes the gallbladder or biliary dilatation. Heterogeneous appearance of the uterus with probable fibroids. Trace bilateral pleural effusions versus pleural thickening with mild linear atelectasis or scarring at the lung bases. Findings are more pronounced on the left.
[2017-12-07 05:04] VITALS: BP 138/70
== END 2017-12-07 04:05 | disposition home or self-care (01) ==
LOC: ED 20:38
DX: R10.84 Generalized abdominal pain (principal); R19.7 Diarrhea, unspecified; E11.9 Type 2 diabetes mellitus without complications; Z79.4 Long term (current) use of insulin
CPT/HCPCS: 36415; 74177; 80053; 83690; 84703; 85025; 85610; 85652; 85730; 86140; 86850; 86900; 86901; 93005; 93010; 96361; 96374; 99284; J1885; J7030; Q9967; Q0162

== ENCOUNTER 2018-11-08 11:22 | Emergency (ER) | payer MEDICAID, OTHER ==
[2018-11-08 12:09] LABS: HCG Qualitative,Urine Positive (Negative)
[2018-11-08 12:11] LABS: Bacteria,Urine 1+ /HPF (Negative); Bilirubin,Urine NEG (Negative); Blood,Urine SM (Negative); Color,Urine Yellow (Yellow); Mucus,Urine FEW /HPF; Protein,Urine <15 mg/dL mg/dL (Negative); Urobilinogen,Urine < 2.0 mg/dL (<2.0)
[2018-11-08 12:12] LABS: WBC,Urine > 182.0 /HPF (0.0-6.0)
[2018-11-08] MEDS ORDERED: LEVAQUIN PO ONE (12:14)
[2018-11-08] MEDS ORDERED: NACL 0.9% 1000 ML 1,000 ML IV ONE (12:14)
[2018-11-08 13:13] LABS: Basophils % (Auto) 0.7 % (0.0-1.8); Hematocrit 35.4 % (30.3-42.9); Hemoglobin 11.7 gm/dl (10.1-14.3); Lymphocytes # (Auto) 1.4 K/mm3 (1.2-5.4); Lymphocytes % (Auto) 30.1 % (13.4-35.0); Mean Corpuscular HGB Conc 33 % (30-34); Mean Corpuscular Volume 81 fl (79-97); Monocytes # (Auto) 0.4 K/mm3 (0.0-0.8); Monocytes % (Auto) 9.1 % (0.0-7.3); Platelet Count 220 K/mm3 (140-440); Red Blood Count 4.36 M/mm3 (3.65-5.03); Red Cell Distribution Width 14.3 % (13.2-15.2)
--- NOTE | 2018-11-08 13:32 | Emergency Department Report ---
ED Abdominal Pain HPI - General Chief Complaint: Urogenital-Female Stated Complaint: DISCHARGE/BACK PAIN Time Seen by Provider: 11/08/18 11:59 Source: patient Mode of arrival: Ambulatory Limitations: No Limitations - History of Present Illness Initial Comments: 38-year-old female presents to the emergency room complaining of vaginal discharge consistent of white clumpy discharge that causes itchiness and burning upon urination 2 weeks. Patient also complains of lower back pain. Patient does report she has a history of gestational diabetes she last delivered her last baby in July 2017. Patient is 7. Last menstrual period was 08/07/2018. Patient is sexually active with males and protected. Patient currently does not have a primary care provider currently is not being treated for diabetes. MD Complaint: abdominal pain, flank pain Onset/Timin -: week(s) Location: suprapubic, R flank Radiation: suprapubic Severity scale (0 -10): 9 Quality: stabbing, aching, sharp Consistency: constant Improves With: nothing Worsens With: movement Associated Symptoms: other (vaginal discharge) - Related Data LMP Date: 08/07/18 Home Medications Medication Instructions Recorded Confirmed Last Taken Amoxicillin 1 tab PO BID 06/22/17 07/07/17 06/21/17 09:00 1 Insulin NPH Human Isophane 26 units SQ DAILY 06/22/17 07/07/17 06/21/17 20:30 [Novolin N] 1 Insulin NPH Human Isophane 60 units SQ QAM 06/22/17 07/07/17 06/21/17 07:30 [Novolin N] 1 Insulin Regular, Human Inj 26 units SQ QPM 06/22/17 07/07/17 06/21/17 20:30 [NovoLIN R Inj] 1 Insulin Regular, Human Inj 32 units SQ QAM 06/22/17 07/07/17 06/21/17 07:30 [NovoLIN R Inj] 1 Previous Rx's Medication Instructions Recorded Last Taken Type hydrOXYzine PAMOATE [Vistaril] 25 mg PO BID PRN #15 capsule 06/26/17 Unknown Rx Ibuprofen [Motrin 800 MG tab] 800 mg PO Q8HR PRN #30 tablet 07/07/17 Unknown Rx Lidocain2.5%/Prilocai2.5% [Emla] 5 gm TP ONCE PRN #1 tube 07/07/17 Unknown Rx Ondansetron [Zofran Odt] 4 mg PO Q8H PRN #12 tab.rapdis 12/07/17 Unknown Rx Fluconazole [Diflucan TAB] 150 mg PO ONCE #1 tablet 11/08/18 Unknown Rx Nitrofurantoin Granite/M-Cryst 100 mg PO Q12HR #20 capsule 11/08/18 Unknown Rx [Macrobid CAP] Pnv,Calcium 72/Iron/Folic Acid 1 each PO DAILY #90 tablet 11/08/18 Unknown Rx [Preplus Ca-Fe 27 mg-FA 1 mg Tb] metroNIDAZOLE [Flagyl TAB] 250 mg PO Q8HR #21 tablet 11/08/18 Unknown Rx Allergies Allergy/AdvReac Type Severity Reaction Status Date / Time Penicillins Allergy Shortness Verified 11/08/18 11:27 of Breath ED Review of Systems ROS: Stated complaint: DISCHARGE/BACK PAIN Other details as noted in HPI Comment: All other systems reviewed and negative ED Past Medical Hx - Past Medical History Hx Hypertension: No Hx Congestive Heart Failure: No Hx Diabetes: Yes Hx Deep Vein Thrombosis: No Hx Renal Disease: No Hx Sickle Cell Disease: No Hx Seizures: No Hx Asthma: No Hx COPD: No Hx HIV: No - Surgical History Past Surgical History?: No - Social History Smoking Status: Never Smoker Substance Use Type: None - Medications Home Medications: Home Medications Medication Instructions Recorded Confirmed Last Taken Type Amoxicillin 1 tab PO BID 06/22/17 07/07/17 06/21/17 09:00 History 1 Insulin NPH Human Isophane 26 units SQ DAILY 06/22/17 07/07/17 06/21/17 20:30 History [Novolin N] 1 Insulin NPH Human Isophane 60 units SQ QAM 06/22/17 07/07/17 06/21/17 07:30 History [Novolin N] 1 Insulin Regular, Human Inj 26 units SQ QPM 06/22/17 07/07/17 06/21/17 20:30 History [NovoLIN R Inj] 1 Insulin Regular, Human Inj 32 units SQ QAM 06/22/17 07/07/17 06/21/17 07:30 Hist ory [NovoLIN R Inj] 1 hydrOXYzine PAMOATE [Vistaril] 25 mg PO BID PRN #15 capsule 06/26/17 07/07/17 Unknown Rx Ibuprofen [Motrin 800 MG tab] 800 mg PO Q8HR PRN #30 tablet 07/07/17 Unknown Rx Lidocain2.5%/Prilocai2.5% [Emla] 5 gm TP ONCE PRN #1 tube 07/07/17 Unknown Rx Ondansetron [Zofran Odt] 4 mg PO Q8H PRN #12 tab.rapdis 12/07/17 Unknown Rx Fluconazole [Diflucan TAB] 150 mg PO ONCE #1 tablet 11/08/18 Unknown Rx Nitrofurantoin Gran[place]/M-Cryst 100 mg PO Q12HR #20 capsule 11/08/18 Unknown Rx [Macrobid CAP] Pnv,Calcium 72/Iron/Folic Acid 1 each PO DAILY #90 tablet 11/08/18 Unknown Rx [Preplus Ca-Fe 27 mg-FA 1 mg Tb] metroNIDAZOLE [Flagyl TAB] 250 mg PO Q8HR #21 tablet 11/08/18 Unknown Rx ED Physical Exam - General Limitations: No Limitations General appearance: alert, in no apparent distress - Head Head exam: Present: atraumatic, normocephalic - Eye Eye exam: Present: normal appearance - ENT ENT exam: Present: mucous membranes moist - Neck Neck exam: Present: normal inspection - Respiratory Respiratory exam: Present: normal lung sounds bilaterally. Absent: respiratory distress - Cardiovascular Cardiovascular Exam: Present: tachycardia - GI/Abdominal GI/Abdominal exam: Present: soft, tenderness - External exam: Present: normal external exam Speculum exam: Present: vaginal discharge Bi-manual exam: Present: normal bi-manual exam - Extremities Exam Extremities exam: Present: normal inspection - Back Exam Back exam: Present: normal inspection - Neurological Exam Neurological exam: Present: alert, oriented X3, normal gait - Psychiatric Psychiatric exam: Present: normal affect, normal mood - Skin Skin exam: Present: warm, dry, intact, normal color. Absent: rash ED Course Vital Signs 11/08/18 11/08/18 11:28 17:03 Temperature 97.8 F Pulse Rate 103 H 100 H Respiratory 16 16 Rate Blood Pressure 152/76 Blood Pressure 148/78 [Right] O2 Sat by Pulse 98 99 Oximetry ED Medical Decision Making - Lab Data Result diagrams: 11/08/18 12:58 11/08/18 12:58 - Radiology Data Radiology results: report reviewed Patient: MIKE MALDONADO MR#: [id number] : 1980 Acct:[id number] Age/Sex: 38 / F ADM Date: 11/08/18 Loc: ED Attending Dr: Ordering Physician: NAZ PAULINO Date of Service: 11/08/18 Procedure(s): US OB transvaginal Accession Number(s): [id number] cc: NAZ PAULINO Early obstetrical ultrasound INDICATION: Back pain, lower abdominal pain, duration 2 weeks, positive test today Transabdominal and endovaginal studies were performed. On the transabdominal study the uterus measures 13.2 x 7.6 x 8.9 cm. Endometrial stripe measures approximately 9 mm. 2 small uterine leiomyomata are seen with the larger of the 2 noted centrally in the body measuring 3 cm. Intrauterine gestational sac is seen with a yolk sac noted but no pole i dentified and no cardiac activity reported. By sac size estimated gestational age would be estimated at 6 weeks 2 days. This is significantly less than the clinical dating of 13 weeks 2 days. Both ovaries appear within normal limits. No adnexal masses are seen. No free fluid is noted. IMPRESSION: Intrauterine is noted though I cannot confirm viability. Sac size is significantly smaller than expected by reported clinical dating. Clinical correlation and follow-up are suggested. Signer Name: Trell Evans MD Signed: 11/08/2018 2:34 PM Workstation Name: [id number] Transcribed By: GJ Dictated By: Trell Evans MD Electronically Authenticated By: Trell Evans MD Signed Date/Time: 11/08/18 1434 DD/ 1428 TD/TT: - Medical Decision Making 38-year-old female comes in for abdominal pain and flank pain. White vaginal discharge. Patient's had abnormal. Lab work urine was collected. Shows the patient has a urinary tract infection with greater than 182 WBCs she is trace blood. Wet prep shows the patient has greater than 20% close cells rare he's. Urine hCG was positive therefore left hCG was ordered so that her levels were greater than 2000. Ultrasound was ordered and shows that question viability of may be too early. They recommended for serial hCGs. Critical care attestation.: If time is entered above; I have spent that time in minutes in the direct care of this critically ill patient, excluding procedure time. ED Disposition Clinical Impression: , Diabetes in , UTI (urinary tract infection), Candidiasis of genitalia in female, Bacterial vaginosis in Disposition: - TO HOME OR SELFCARE Is pt being admited?: No Does the pt Need Aspirin: No Condition: Stable Instructions: Bacterial Vaginosis (ED), Diabetes Mellitus Type 2 in Adults (ED) Additional Instructions: Please complete antibiotics as prescribed. You needs to follow-up with an [facility] provider in the next 48-72 hours to have her repeat hCG. Needs to follow-up with [facility] provider check for urinary diabetes and or you can follow-up with her primary care provider I have listed several below for your convenience. Prescriptions: Fluconazole [Diflucan TAB] 150 mg PO ONCE #1 tablet metroNIDAZOLE [Flagyl TAB] 250 mg PO Q8HR #21 tablet Nitrofurantoin Granite/M-Cryst [Macrobid CAP] 100 mg PO Q12HR #20 capsule Pnv,Calcium 72/Iron/Folic Acid [Preplus Ca-Fe 27 mg-FA 1 mg Tb] 1 each PO DAILY #90 tablet Referrals: NEIDA HARVE[facility]ARCELINE MD VIKRAM [Primary Care Provider] - 3-5 Days [facility] [Provider Group] - 3-5 Days [facility] [Provider Group] - 3-5 Days [facility] [Provider Group] - 3-5 Days [facility] [Provider Group] - 3-[address] [facility] [Provider Group] - 3-5 Days Forms: STI Treatment and Prevention
[2018-11-08 13:33] LABS: Alanine Aminotransferase 7 units/L (7-56); Albumin 3.7 g/dL (3.9-5); BUN/Creatinine Ratio 10; Blood Urea Nitrogen 6 mg/dL (7-17); Calcium 8.3 mg/dL (8.4-10.2); Hemolysis Index 2
--- NOTE | 2018-11-08 14:38 | Ultrasound Report ---
Early obstetrical ultrasound INDICATION: Back pain, lower abdominal pain, duration 2 weeks, positive test today Transabdominal and endovaginal studies were performed. On the transabdominal study the uterus measures 13.2 x 7.6 x 8.9 cm. Endometrial stripe measures appr oximately 9 mm. 2 small uterine leiomyomata are seen with the larger of the 2 noted centrally in the body measuring 3 cm. Intrauterine gestational sac is seen with a yolk sac noted but no pole identified and no cardia c activity reported. By sac size estimated gestational age would be estimated at 6 weeks 2 days. This is significantly less than the clinical dating of 13 weeks 2 days. Both ovaries appear within normal limits. No adnexal masses are seen. No free fluid is noted. IMPRESSION: Intrauterine is noted though I cannot confirm viability. Sac size is significan tly smaller than expected by reported clinical dating. Clinical correlation and follow-up are suggest ed. Signer Name: Trell Evans MD Signed: 11/08/2018 2:34 PM Workstation Name: [id number]
[2018-11-08 17:03] VITALS: BP 148/78
== END 2018-11-08 17:03 | disposition home or self-care (01) ==
LOC: ED 11:22
DX: O24.419 Gestational diabetes mellitus in pregnancy, unspecified control (principal); O23.41 Unspecified infection of urinary tract in pregnancy, first trimester; O98.811 Other maternal infectious and parasitic diseases complicating pregnancy, first trimester; B37.3 Candidiasis of vulva and vagina; O23.591 Infection of other part of genital tract in pregnancy, first trimester; B96.89 Other specified bacterial agents as the cause of diseases classified elsewhere; Z3A.01 Less than 8 weeks gestation of pregnancy; Z88.0 Allergy status to penicillin; Z79.899 Other long term (current) drug therapy; Z79.4 Long term (current) use of insulin
CPT/HCPCS: 36415; 76801; 76817; 80053; 81001; 81025; 83036; 84702; 85025; 87210; 87591; 99284; J7030

== ENCOUNTER 2018-11-24 08:23 | Emergency (ER) | payer MEDICAID ==
[2018-11-24 08:33] VITALS: BP 125/60
--- NOTE | 2018-11-24 09:03 | Emergency Department Report ---
ED HPI - General Chief complaint: Vaginal Bleeding Stated complaint: 8WKS /BLEEDING Time Seen by Provider: 11/24/18 08:52 Source: patient Mode of arrival: Ambulatory Limitations: No Limitations - History of Present Illness Initial comments: Patient is a 38-year-old female who presents to the emergency room complains of heavy vaginal bleeding that began this morning. States she passed one large clot. Patient states she is currently 8 weeks . She has associated lower abdominal cramping and lower back pain. She denies any dysuria or vaginal discharge. Patient states her OB is [facility] [employer]. 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 pt has an allergy to penicillin and latex. /P:6/A:2 - Related Data Home Medications Medication Instructions Recorded Confirmed Last Taken Amoxicillin 1 tab PO BID 06/22/17 07/07/17 06/21/17 09:00 1 Insulin NPH Human Isophane 26 units SQ DAILY 06/22/17 07/07/17 06/21/17 20:30 [Novolin N] 1 Insulin NPH Human Isophane 60 units SQ QAM 06/22/17 07/07/17 06/21/17 07:30 [Novolin N] 1 Insulin Regular, Human Inj 26 units SQ QPM 06/22/17 07/07/17 06/21/17 20:30 [NovoLIN R Inj] 1 Insulin Regular, Human Inj 32 units SQ QAM 06/22/17 07/07/17 06/21/17 07:30 [NovoLIN R Inj] 1 Previous Rx's Medication Instructions Recorded Last Taken Type hydrOXYzine PAMOATE [Vistaril] 25 mg PO BID PRN #15 capsule 06/26/17 Unknown Rx Ibuprofen [Motrin 800 MG tab] 800 mg PO Q8HR PRN #30 tablet 07/07/17 Unknown Rx Lidocain2.5%/Prilocai2.5% [Emla] 5 gm TP ONCE PRN #1 tube 07/07/17 Unknown Rx Ondansetron [Zofran Odt] 4 mg PO Q8H PRN #12 tab.rapdis 12/07/17 Unknown Rx Fluconazole [Diflucan TAB] 150 mg PO ONCE #1 tablet 11/08/18 Unknown Rx Nitrofurantoin [place]/M-Cryst 100 mg PO Q12HR #20 capsule 11/08/18 Unknown Rx [Macrobid CAP] Pnv,Calcium 72/Iron/Folic Acid 1 each PO DAILY #90 tablet 11/08/18 Unknown Rx [Preplus Ca-Fe 27 mg-FA 1 mg Tb] metroNIDAZOLE [Flagyl TAB] 250 mg PO Q8HR #21 tablet 11/08/18 Unknown Rx Allergies Allergy/AdvReac Type Severity Reaction Status Date / Time Penicillins Allergy Shortness Verified 11/08/18 11:27 of Breath ED Review of Systems ROS: Stated complaint: 8WKS /BLEEDING Other details as noted in HPI Comment: All other systems reviewed and negative ED Past Medical Hx - Past Medical History Hx Hypertension: No Hx Congestive Heart Failure: No Hx Diabetes: Yes Hx Deep Vein Thrombosis: No Hx Renal Disease: No Hx Sickle Cell Disease: No Hx Seizures: No Hx Asthma: No Hx COPD: No Hx HIV: No - Surgical History Past Surgical History?: No - Social History Smoking Status: Never Smoker Substance Use Type: None - Medications Home Medications: Home Medications Medication Instructions Recorded Confirmed Last Taken Type Amoxicillin 1 tab PO BID 06/22/17 07/07/17 06/21/17 09:00 History 1 Insulin NPH Human Isophane 26 units SQ DAILY 06/22/17 07/07/17 06/21/17 20:30 History [Novolin N] 1 Insulin NPH Human Isophane 60 units SQ QAM 06/22/17 07/07/17 06/21/17 07:30 History [Novolin N] 1 Insulin Regular, Human Inj 26 units SQ QPM 06/22/17 07/07/17 06/21/17 20:30 History [NovoLIN R Inj] 1 Insulin Regular, Human Inj 32 units SQ QAM 06/22/17 07/07/17 06/21/17 07:30 History [NovoLIN R Inj] 1 hydrOXYzine PAMOATE [Vistaril] 25 mg PO BID PRN #15 capsule 06/26/17 07/07/17 Unknown Rx Ibuprofen [Motrin 800 MG tab] 800 mg PO Q8HR PRN #30 tablet 07/07/17 Unknown Rx Lidocain2.5%/Prilocai2.5% [Emla] 5 gm TP ONCE PRN #1 tube 07/07/17 Unknown Rx Ondansetron [Zofran Odt] 4 mg PO Q8H PRN #12 tab.rapdis 12/07/17 Unknown Rx Fluconazole [Diflucan TAB] 150 mg PO ONCE #1 tablet 11/08/18 Unknown Rx Nitrofurantoin [place]/M-Cryst 100 mg PO Q12HR #20 capsule 11/08/18 Unknown Rx [Macrobid CAP] Pnv,Calcium 72/Iron/Folic Acid 1 each PO DAILY #90 tablet 11/08/18 Unknown Rx [Preplus Ca-Fe 27 mg-FA 1 mg Tb] metroNIDAZOLE [Flagyl TAB] 250 mg PO Q8HR #21 tablet 11/08/18 Unknown Rx ED Physical Exam - General Limitations: No Limitations General appearance: alert, in no apparent distress - Head Head exam: Present: atraumatic, normocephalic - Eye Eye exam: Present: normal appearance - ENT ENT exam: Present: mucous membranes moist - Respiratory Respiratory exam: Present: normal lung sounds bilaterally. Absent: respiratory distress, wheezes, rales, rhonchi, stridor, chest wall tenderness, accessory muscle use, decreased breath sounds, prolonged expiratory - Cardiovascular Cardiovascular Exam: Present: regular rate, normal rhythm, normal heart sounds. Absent: systolic murmur, diastolic murmur, rubs, gallop - GI/Abdominal GI/Abdominal exam: Present: soft, normal bowel sounds. Absent: distended, tenderness, guarding, rebound, rigid - Neurological Exam Neurological exam: Present: alert, oriented X3 - Psychiatric Psychiatric exam: Present: normal affect, normal mood - Skin Skin exam: Present: warm, dry, intact ED Course Vital Signs 11/24/18 08:31 Temperature 97.6 F Pulse Rate 100 H Respiratory 20 Rate Blood Pressure 125/60 O2 Sat by Pulse 100 Oximetry - Consultations Consultation #1: 11/24/18 10:18 spoke with cristopher Feldmanife for [facility] who states to give pt precautions for heavy bleeding and that pt is stable for discharge and to follow up in clinic on Wednesday11/28/18 at 2:30 pm. ED Medical Decision Making - Lab Data Result diagrams: 11/24/18 09:04 Lab Results 11/24/18 11/24/18 11/24/18 Range/Units 09:04 09:04 09:09 WBC 4.2 L (4.5-11.0) K/mm3 RBC 4.62 (3.65-5.03) M/mm3 Hgb 12.5 (10.1-14.3) gm/dl Hct 37.8 (30.3-42.9) % MCV 82 (79-97) fl MCH 27 L (28-32) pg MCHC 33 (30-34) % RDW 14.7 (13.2-15.2) % Plt Count 229 (140-440) K/mm3 Lymph % (Auto) 25.5 (13.4-35.0) % [place] % (Auto) 9.8 H (0.0-7.3) % Eos % (Auto) 2.2 (0.0-4.3) % Baso % (Auto) 0.8 (0.0-1.8) % Lymph # 1.1 L (1.2-5.4) K/mm3 [place] # 0.4 (0.0-0.8) K/mm3 Eos # 0.1 (0.0-0.4) K/mm3 Baso # 0.0 (0.0-0.1) K/mm3 Seg Neutrophils % 61.7 (40.0-70.0) % Seg Neutrophils # 2.6 (1.8-7.7) K/mm3 HCG, Quant 2345 H (0-4) mIU/mL Urine Color (Yellow) Urine Turbidity (Clear) Urine pH (5.0-7.0) Ur Specific [place] (1.003-1.030) Urine Protein (Negative) mg/dL Urine Glucose (UA) (Negative) mg/dL Urine Ketones (Negative) mg/dL Urine Blood (Negative) Urine Nitrite (Negative) Urine Bilirubin (Negative) Urine Urobilinogen (<2.0) mg/dL Ur Leukocyte Esterase (Negative) Urine WBC (Auto) (0.0-6.0) /HPF Urine RBC (Auto) (0.0-6.0) /HPF U Epithel Cells (Auto) (0-13.0) /HPF Urine Mucus /HPF Blood Type O POSITIVE 11/24/18 Range/Units 09:54 WBC (4.5-11.0) K/mm3 RBC (3.65-5.03) M/mm3 Hgb (10.1-14.3) gm/dl Hct (30.3-42.9) % MCV (79-97) fl MCH (28-32) pg MCHC (30-34) % RDW (13.2-15.2) % Plt Count (140-440) K/mm3 Lymph % (Auto) (13.4-35.0) % [place] % (Auto) (0.0-7.3) % Eos % (Auto) (0.0-4.3) % Baso % (Auto) (0.0-1.8) % Lymph # (1.2-5.4) K/mm3 [place] # (0.0-0.8) K/mm3 Eos # (0.0-0.4) K/mm3 Baso # (0.0-0.1) K/mm3 Seg Neutrophils % (40.0-70.0) % Seg Neutrophils # (1.8-7.7) K/mm3 HCG, Quant (0-4) mIU/mL Urine Color [place] (Yellow) Urine Turbidity Cloudy (Clear) Urine pH 5.0 (5.0-7.0) Ur Specific [place] 1.032 H (1.003-1.030) Urine Protein 100 mg/dl (Negative) mg/dL Urine Glucose (UA) 50 (Negative) mg/dL Urine Ketones 80 (Negative) mg/dL Urine Blood Lg (Negative) Urine Nitrite Neg (Negative) Urine Bilirubin Neg (Negative) Urine Urobilinogen 2.0 (<2.0) mg/dL Ur Leukocyte Esterase Neg (Negative) Urine WBC (Auto) 1.0 (0.0-6.0) /HPF Urine RBC (Auto) > 182.0 (0.0-6.0) /HPF U Epithel Cells (Auto) 1.0 (0-13.0) /HPF Urine Mucus 3+ /HPF Blood Type - Radiology Data Radiology results: report reviewed Ordering Physician: NAZ TOMPKINS Date of Service: 11/24/18 Procedure(s): US OB <= 14 weeks fetus Accession Number(s): [id number] cc: NAZ TOMPKINS Without ultrasound INDICATION: Early , bleeding with passage of clots this morning COMPARISON: 11/08/2018 Transabdominal study was performed. Intrauterine gestational sac is seen but is now located in the lateral lower uterine segment and upper cervical region with former location in the fundus. A yolk sac is seen but no pole is noted. By sac size estimated gestational age would correspond to 8 weeks 3 days which is significantly less than the 15 weeks 4 days by clinical dating. Right ovary shows a small cyst measuring 11 mm. Left ovary is not visualized. No free fluid is seen. IMPRESSION: Intrauterine gestational sac now in an abnormal position with no pole demonstrated. Findings are most consistent with spontaneous in progress. Follow-up is suggested. Signer Name: Trell Evans MD Signed: 11/24/2018 9:58 AM Workstation Name: [id number] Transcribed By: JOSSE Dictated By: Trell Evans MD Electronically Authenticated By: Trell Evans MD Signed Date/Time: 11/24/18 0958 - Medical Decision Making Patient is a 38-year-old female who presents to the emergency room complains of heavy vaginal bleeding that began this morning. States she passed one large clot. Patient states she is currently 8 weeks . She has associated lower abdominal cramping and lower back pain. She denies any dysuria or vaginal discharge. Patient states her OB is [facility] [employer] [facility]. 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 pt has an allergy to penicillin and latex. /P:6/A:2. VSS. H/H are normal. hcg quant decreased from last visit to 2345. OB US shows Intrauterine gestational sac now in an abnormal position with no pole demonstrated. Findings are most consistent with spontaneous in progress. Follow-up is suggested. spoke with Gaston or director for [facility] [facility] who states to give pt precautions for heavy bleeding and that pt is stable for discharge and to follow up in clinic on Wednesday11/28/18 at 2:30 pm. discussed with pt strict precautions for return. advised pt to please follow up with My semiconductor technician on wednesday11/28/18 at 2:30 PM. return to the emergency room for any new or worsening symptoms as discussed. - Differential Diagnosis IUP, threatened miscarriage, spontaneous miscarriage, hemorrhagic cyst Critical care attestation.: If time is entered above; I have spent that time in minutes in the direct care of this critically ill patient, excluding procedure time. ED Disposition Clinical Impression: Threatened miscarriage Disposition: DC-01 TO HOME OR SELFCARE Is pt being admited?: No Does the pt Need Aspirin: No Condition: Stable Instructions: Threatened Miscarriage (ED) Additional Instructions: please follow up with My semiconductor technician on wednesday11/28/18 at 2:30 PM. return to the emergency room for any new or worsening symptoms as discussed. [facility] [Primary Care Provider[facility] - 2-3 Days [facility] [Provider Group] - 3-5 Days Forms: Work/School Release Form(ED) Time of Disposition: 10:19 Print Language: ALBANIAN
[2018-11-24 09:21] LABS: Basophils % (Auto) 0.8 % (0.0-1.8); Eosinophils # (Auto) 0.1 K/mm3 (0.0-0.4); Eosinophils % (Auto) 2.2 % (0.0-4.3); Hematocrit 37.8 % (30.3-42.9); Hemoglobin 12.5 gm/dl (10.1-14.3); Lymphocytes # (Auto) 1.1 K/mm3 (1.2-5.4); Lymphocytes % (Auto) 25.5 % (13.4-35.0); Mean Corpuscular HGB Conc 33 % (30-34); Mean Corpuscular Volume 82 fl (79-97); Monocytes # (Auto) 0.4 K/mm3 (0.0-0.8); Monocytes % (Auto) 9.8 % (0.0-7.3); Platelet Count 229 K/mm3 (140-440); Red Blood Count 4.62 M/mm3 (3.65-5.03); Red Cell Distribution Width 14.7 % (13.2-15.2)
--- NOTE | 2018-11-24 10:02 | Ultrasound Report ---
Without ultrasound INDICATION: Early , bleeding with passage of clots this morning COMPARISON: 11/08/2018 Transabdominal study was performed. Intrauterine gestational sac is seen but is now located in the la teral lower uterine segment and upper cervical region with former location in the fundus. A yolk sac is seen but no pole is noted. By sac size estimated gestational age would correspond to 8 weeks 3 days which is significantly less than the 15 weeks 4 days by clinical dating. Right ovary shows a small cyst measuring 11 mm. Left ovary is not visualized. No free fluid is seen. IMPRESSION: Intrauterine gestational sac now in an abnormal position with no pole demonstrated. Findings are most consistent with spontaneous in progress. Follow-up is suggested. Signer Name: Trell Evans MD Signed: 11/24/2018 9:58 AM Workstation Name: [id number]
[2018-11-24 10:13] LABS: Bilirubin,Urine NEG (Negative); Blood,Urine LG (Negative); Color,Urine Amber (Yellow); Mucus,Urine 3+ /HPF
[2018-11-24 10:15] LABS: RBC,Urine > 182.0 /HPF (0.0-6.0)
== END 2018-11-24 10:33 | disposition home or self-care (01) ==
LOC: ED 08:23
DX: O20.0 Threatened abortion (principal); E11.9 Type 2 diabetes mellitus without complications; Z88.0 Allergy status to penicillin; Z79.899 Other long term (current) drug therapy; Z3A.08 8 weeks gestation of pregnancy
CPT/HCPCS: 36415; 76801; 81001; 84702; 85025; 86900; 86901

== ENCOUNTER 2020-08-05 20:06 | Emergency (ER) | payer MEDICAID ==
[2020-08-05 22:44] LABS: Basophils % (Auto) 0.8 % (0.0-1.8); Eosinophils # (Auto) 0.1 K/mm3 (0.0-0.4); Eosinophils % (Auto) 1.3 % (0.0-4.3); Hematocrit 35.6 % (30.3-42.9); Hemoglobin 11.4 gm/dl (10.1-14.3); Lymphocytes # (Auto) 1.5 K/mm3 (1.2-5.4); Lymphocytes % (Auto) 28.4 % (13.4-35.0); Mean Corpuscular HGB Conc 32 % (30-34); Mean Corpuscular Volume 76 fl (79-97); Monocytes # (Auto) 0.5 K/mm3 (0.0-0.8); Monocytes % (Auto) 9.8 % (0.0-7.3); Platelet Count 272 K/mm3 (140-440); Red Blood Count 4.68 M/mm3 (3.65-5.03); Red Cell Distribution Width 16.1 % (13.2-15.2)
[2020-08-05 23:09] VITALS: BP 114/65
[2020-08-05] MEDS ORDERED: ACETAMINOPHEN 500 MG TAB PO ONE (23:31)
--- NOTE | 2020-08-06 00:11 | Emergency Department Report ---
ED HPI - General Chief complaint: Vaginal Bleeding Stated complaint: VAG BLEEDING Time Seen by Provider: 08/05/20 23:14 Source: patient Mode of arrival: Ambulatory Limitations: No Limitations - History of Present Illness Initial comments: This is a 40-year-old female nontoxic, well nourished in appearance, no acute signs of distress presents to the ED with c/o of vaginal bleeding and pelvic pain x1 day. Patient stated pelvic pain is primarily to the left side. Patient stated goes about 1-2 pads a day and describes it as more as spotting. Patient denies any upper abdominal pain. Patient denies any radiation of pain. Patient follows with [facility]. Patient denies any vaginal discharge or foul odor. Patient denies any nausea, vomiting, chest pain, shortness of breathe, fever, chills, headache, stiff neck, numbness, tingling. Patient denies any urinary symptoms. Patient stated allergies to penicillin. Last menstrual cycle 05/03. MD Complaint: vaginal bleeding -: This evening Location: pelvis Radiation: none Severity: mild Severity scale (0 -10): 3 Quality: aching Consistency: constant Improves with: none Worsens with: none Associated symptoms: vaginal bleeding. denies: nausea/vomiting, vaginal discharge, abdominal pain, dysuria, headache, vision changes, malaise, dysparuenia, rash, seizure, shortness of breath, syncope, weakness Vaginal bleeding: light :: Yes Number of weeks : 12 Pre-ally care: followed by OB - Related Data Home Medications Medication Instructions Recorded Confirmed Last Taken Amoxicillin 1 tab PO BID 06/22/17 07/07/17 06/21/17 09:00 1 Insulin NPH Human Isophane 26 units SQ DAILY 06/22/17 07/07/17 06/21/17 20:30 [Novolin N] 1 Insulin NPH Human Isophane 60 units SQ QAM 06/22/17 07/07/17 06/21/17 07:30 [Novolin N] 1 Insulin Regular, Human Inj 26 units SQ QPM 06/22/17 07/07/17 06/21/17 20:30 [NovoLIN R Inj] 1 Insulin Regular, Human Inj 32 units SQ QAM 06/22/17 07/07/17 06/21/17 07:30 [NovoLIN R Inj] 1 Previous Rx's Medication Instructions Recorded Last Taken Type hydrOXYzine PAMOATE [Vistaril] 25 mg PO BID PRN #15 capsule 06/26/17 Unknown Rx Ibuprofen [Motrin 800 MG tab] 800 mg PO Q8HR PRN #30 tablet 07/07/17 Unknown Rx Lidocain2.5%/Prilocai2.5% [Emla] 5 gm TP ONCE PRN #1 tube 07/07/17 Unknown Rx Ondansetron [Zofran Odt] 4 mg PO Q8H PRN #12 tab.rapdis 12/07/17 Unknown Rx Fluconazole (Nf) [Diflucan TAB] 150 mg PO ONCE #1 tablet 11/08/18 Unknown Rx Nitrofurantoin [place]/M-Cryst 100 mg PO Q12HR #20 capsule 11/08/18 Unknown Rx [Macrobid CAP] Pnv,Calcium 72/Iron/Folic Acid 1 each PO DAILY #90 tablet 11/08/18 Unknown Rx [Preplus Ca-Fe 27 mg-FA 1 mg Tb] metroNIDAZOLE [Flagyl TAB] 250 mg PO Q8HR #21 tablet 11/08/18 Unknown Rx Nitrofurantoin [place]/M-Cryst 100 mg PO Q12HR #14 capsule 08/06/20 Unknown Rx [Macrobid CAP] Allergies Allergy/AdvReac Type Severity Reaction Status Date / Time Penicillins Allergy Shortness Verified 11/08/18 11:27 of Breath ED Review of Systems ROS: Stated complaint: VAG BLEEDING Other details as noted in HPI Comment: All other systems reviewed and negative Constitutional: denies: chills, fever Eyes: denies: eye pain, eye discharge, vision change ENT: denies: ear pain, throat pain Respiratory: denies: cough, shortness of breath, wheezing Cardiovascular: denies: chest pain, palpitations Endocrine: no symptoms reported Gastrointestinal: denies: abdominal pain, nausea, diarrhea Genitourinary: abnormal menses. denies: urgency, dysuria, discharge Musculoskeletal: denies: back pain, joint swelling, arthralgia Skin: denies: rash, lesions Neurological: denies: headache, weakness, paresthesias Psychiatric: denies: anxiety, depression Hematological/Lymphatic: denies: easy bleeding, easy bruising ED Past Medical Hx - Past Medical History Previous Medical History?: Yes Hx Hypertension: No Hx Congestive Heart Failure: No Hx Diabetes: Yes Hx Deep Vein Thrombosis: No Hx Renal Disease: No Hx Sickle Cell Disease: No Hx Seizures: No Hx Asthma: No Hx COPD: No Hx HIV: No - Surgical History Past Surgical History?: Yes - Social History Smoking Status: Never Smoker - Medications Home Medications: Home Medications Medication Instructions Recorded Confirmed Last Taken Type Amoxicillin 1 tab PO BID 06/22/17 07/07/17 06/21/17 09:00 History 1 Insulin NPH Human Isophane 26 units SQ DAILY 06/22/17 07/07/17 06/21/17 20:30 History [Novolin N] 1 Insulin NPH Human Isophane 60 units SQ QAM 06/22/17 07/07/17 06/21/17 07:30 History [Novolin N] 1 Insulin Regular, Human Inj 26 units SQ QPM 06/22/17 07/07/17 06/21/17 20:30 History [NovoLIN R Inj] 1 Insulin Regular, Human Inj 32 units SQ QAM 06/22/17 07/07/17 06/21/17 07:30 His tory [NovoLIN R Inj] 1 hydrOXYzine PAMOATE [Vistaril] 25 mg PO BID PRN #15 capsule 06/26/17 07/07/17 Unknown Rx Ibuprofen [Motrin 800 MG tab] 800 mg PO Q8HR PRN #30 tablet 07/07/17 Unknown Rx Lidocain2.5%/Prilocai2.5% [Emla] 5 gm TP ONCE PRN #1 tube 07/07/17 Unknown Rx Ondansetron [Zofran Odt] 4 mg PO Q8H PRN #12 tab.rapdis 12/07/17 Unknown Rx Fluconazole (Nf) [Diflucan TAB] 150 mg PO ONCE #1 tablet 11/08/18 Unknown Rx Nitrofurantoin [place]/M-Cryst 100 mg PO Q12HR #20 capsule 11/08/18 Unknown Rx [Macrobid CAP] Pnv,Calcium 72/Iron/Folic Acid 1 each PO DAILY #90 tablet 11/08/18 Unknown Rx [Preplus Ca-Fe 27 mg-FA 1 mg Tb] metroNIDAZOLE [Flagyl TAB] 250 mg PO Q8HR #21 tablet 11/08/18 Unknown Rx Nitrofurantoin [place]/M-Cryst 100 mg PO Q12HR #14 capsule 08/06/20 Unknown Rx [Macrobid CAP] ED Physical Exam - General Limitations: No Limitations General appearance: alert, in no apparent distress - Head Head exam: Present: atraumatic, normocephalic - Eye Eye exam: Present: normal appearance - Neck Neck exam: Present: normal inspection, full ROM. Absent: tenderness, meningismus, lymphadenopathy - Respiratory Respiratory exam: Present: normal lung sounds bilaterally. Absent: respiratory distress, wheezes, rales, rhonchi, stridor, chest wall tenderness, accessory muscle use, decreased breath sounds, prolonged expiratory - Cardiovascular Cardiovascular Exam: Present: regular rate, normal rhythm, normal heart sounds. Absent: bradycardia, tachycardia, irregular rhythm, systolic murmur, diastolic murmur, rubs, gallop - GI/Abdominal GI/Abdominal exam: Present: soft, normal bowel sounds. Absent: distended, tenderness, guarding, rebound, rigid, diminished bowel sounds - Extremities Exam Extremities exam: Present: full ROM - Back Exam Back exam: Present: normal inspection, full ROM. Absent: tenderness, CVA tenderness (R), CVA tenderness (L), muscle spasm, paraspinal tenderness, vertebral tenderness, rash noted - Neurological Exam Neurological exam: Present: alert, oriented X3, normal gait - Psychiatric Psychiatric exam: Present: normal affect, normal mood - Skin Skin exam: Present: warm, dry, intact, normal color. Absent: rash ED Course Vital Signs 08/05/20 22:20 Temperature 98.1 F Pulse Rate 90 Respiratory 17 Rate Blood Pressure 114/65 O2 Sat by Pulse 100 Oximetry - Reevaluation(s) Reevaluation #1: 08/06/20 00:11 Patient is speaking in full sentences with no signs of distress noted. ED Medical Decision Making - Lab Data Result diagrams: 08/05/20 22:31 Lab Results 08/05/20 08/05/20 08/05/20 Range/Units 22:31 22:31 22:31 WBC 5.2 (4.5-11.0) K/mm3 RBC 4.68 (3.65-5.03) M/mm3 Hgb 11.4 (10.1-14.3) gm/dl Hct 35.6 (30.3-42.9) % MCV 76 L (79-97) fl MCH 24 L (28-32) pg MCHC 32 (30-34) % RDW 16.1 H (13.2-15.2) % Plt Count 272 (140-440) K/mm3 Lymph % (Auto) 28.4 (13.4-35.0) % Socorro % (Auto) 9.8 H (0.0-7.3) % Eos % (Auto) 1.3 (0.0-4.3) % Baso % (Auto) 0.8 (0.0-1.8) % Lymph # (Auto) 1.5 (1.2-5.4) K/mm3 Socorro # (Auto) 0.5 (0.0-0.8) K/mm3 Eos # (Auto) 0.1 (0.0-0.4) K/mm3 Baso # (Auto) 0.0 (0.0-0.1) K/mm3 Seg Neutrophils % 59.7 (40.0-70.0) % Seg Neutrophils # 3.1 (1.8-7.7) K/mm3 HCG, Qual Positive (Negative) HCG, Quant 28953 H (0-4) mIU/mL Urine Color (Yellow) Urine Turbidity (Clear) Urine pH (5.0-7.0) Ur Specific Galva (1.003-1.030) Urine Protein (Negative) mg/dL Urine Glucose (UA) (Negative) mg/dL Urine Ketones (Negative) mg/dL Urine Blood (Negative) Urine Nitrite (Negative) Urine Bilirubin (Negative) Urine Urobilinogen (<2.0) mg/dL Ur Leukocyte Esterase (Negative) Urine WBC (Auto) (0.0-6.0) /HPF Urine RBC (Auto) (0.0-6.0) /HPF U Epithel Cells (Auto) (0-13.0) /HPF Urine Bacteria (Auto) (Negative) /HPF Urine Mucus /HPF Blood Type 08/05/20 08/06/20 Range/Units 22:31 00:04 WBC (4.5-11.0) K/mm3 RBC (3.65-5.03) M/mm3 Hgb (10.1-14.3) gm/dl Hct (30.3-42.9) % MCV (79-97) fl MCH (28-32) pg MCHC (30-34) % RDW (13.2-15.2) % Plt Count (140-440) K/mm3 Lymph % (Auto) (13.4-35.0) % Socorro % (Auto) (0.0-7.3) % Eos % (Auto) (0.0-4.3) % Baso % (Auto) (0.0-1.8) % Lymph # (Auto) (1.2-5.4) K/mm3 [place] # (Auto) (0.0-0.8) K/mm3 Eos # (Auto) (0.0-0.4) K/mm3 Baso # (Auto) (0.0-0.1) K/mm3 Seg Neutrophils % (40.0-70.0) % Seg Neutrophils # (1.8-7.7) K/mm3 HCG, Qual (Negative) HCG, Quant (0-4) mIU/mL Urine Color Yellow (Yellow) Urine Turbidity Hazy (Clear) Urine pH 6.0 (5.0-7.0) Ur Specific Gal[place] 1.017 (1.003-1.030) Urine Protein <15 mg/dl (Negative) mg/dL Urine Glucose (UA) 150 (Negative) mg/dL Urine Ketones Neg (Negative) mg/dL Urine Blood Neg (Negative) Urine Nitrite Neg (Negative) Urine Bilirubin Neg (Negative) Urine Urobilinogen < 2.0 (<2.0) mg/dL Ur Leukocyte Esterase Sm (Negative) Urine WBC (Auto) 7.0 H (0.0-6.0) /HPF Urine RBC (Auto) 2.0 (0.0-6.0) /HPF U Epithel Cells (Auto) 19.0 H (0-13.0) /HPF Urine Bacteria (Auto) 1+ (Negative) /HPF Urine Mucus Few /HPF Blood Type O POSITIVE - Radiology Data [facility] [address] [place] [address] Ultrasound Report Signed Patient: MIKE MALDONADO MR#: [id number] : 1980 Acct:[id number] Age/Sex: 40 / F ADM Date: 08/05/20 Loc: ED Attending Dr: Ordering Physician: Katlyn Deras MD Date of Service: 08/05/20 Procedure(s): US OB <= 14 weeks fetus Accession Number(s): [id number] cc: Katlyn Deras MD ULTRASOUND OBSTETRIC INDICATION / CLINICAL INFORMATION: vaginal bleeding . Clinical Gestational Age (GA) in weeks, days: 11.5 TECHNIQUE: Transabdominal. COMPARISON: None available. FINDINGS: GESTATIONAL SAC: Well- defined oval shape and intrauterine in location. YOLK SAC: No significant abnormality. EMBRYO/FETUS: No significant abnormality. - [place]-Rump Length = 3 cm = 9.6 weeks, days - Heart Rate, beats per minute (if present) = 163 ADNEXA: Ovaries are not visualized FREE FLUID: None. ADDITIONAL FINDINGS: None. IMPRESSION: 1. Single, living intrauterine with estimated sonographic age of 9.6 weeks, days. Signer Name: Cam Wellington MD Signed: 08/06/2020 1:18 AM Workstation Name: [id number] Transcribed By: Dictated By: Cam Wellington MD Electronically Authenticated By: Cam Wellington MD Signed Date/Time: 08/06/20117 DD/ 6 TD/TT: - Medical Decision Making This is a 40-year-old female presents with threatened miscarriage and UTI. Patient is stable and was examined by me. Normal abdominal exam. US OB obtained and dictated by the radiologist. Ua obtained. Quantative serum test obtained. Patient notified of the US report with no questions noted by the patient. Patient was instructed f/u with [facility] in 3-5 days. RH factor positive. Labs within normal limits. At time of discharge, the patient does not seem toxic or ill in appearance. No acute signs of distress noted. Patient agrees to discharge treatment plan of care. No further questions noted by the patient. Critical care attestation.: If time is entered above; I have spent that time in minutes in the direct care of this critically ill patient, excluding procedure time. ED Disposition Clinical Impression: Threatened miscarriage UTI (urinary tract infection) Qualifiers: Urinary tract infection type: acute cystitis Hematuria presence: without hematuria Qualified Code(s): N30.00 - Acute cystitis without hematuria Disposition: - TO HOME OR SELFCARE Is pt being admited?: No Does the pt Need Aspirin: No Condition: Stable Instructions: Threatened Miscarriage, [id number], Urinary Tract Infection, Adult Additional Instructions: Follow-up with a OBGYN doctor in 3-5 days or if symptoms worsen and continue return to emergency room as soon as possible. Prescriptions: Nitrofurantoin [place]/M-Cryst [Macrobid CAP] 100 mg PO Q12HR #14 capsule Referrals: PRIMARY CARE, [Primary Care Provider] - 3-5 Days [facility] [Provider Group] - 3-5 Days [facility] [Provider Group] - 3-5 Days Forms: Work/School Release Form(ED) Time of Disposition: 01:46
[2020-08-06 00:20] LABS: Bacteria,Urine 1+ /HPF (Negative); Bilirubin,Urine NEG (Negative); Blood,Urine NEG (Negative); Color,Urine Yellow (Yellow); Mucus,Urine FEW /HPF; Protein,Urine <15 mg/dL mg/dL (Negative); Urobilinogen,Urine < 2.0 mg/dL (<2.0)
--- NOTE | 2020-08-06 01:23 | Ultrasound Report ---
ULTRASOUND OBSTETRIC INDICATION / CLINICAL INFORMATION: vaginal bleeding . Clinical Gestational Age (GA) in weeks, days: 11.5 TECHNIQUE: Transabdominal. COMPARISON: None available. FINDINGS: GESTATIONAL SAC: Well-defined oval shape and intrauterine in location. YOLK SAC: No significant abnormality. EMBRYO/FETUS: No significant abnormality. - [place]-Rump Length = 3 cm = 9.6 weeks, days - Heart Rate, beats per minute (if present) = 163 ADNEXA: Ovaries are not visualized FREE FLUID: None. ADDITIONAL FINDINGS: None. IMPRESSION: 1. Single, living intrauterine with estimated sonographic age of 9.6 weeks, days. Signer Name: Cam Wellington MD Signed: 08/06/2020 1:18 AM Workstation Name: [id number]
== END 2020-08-06 02:00 | disposition home or self-care (01) ==
LOC: ED 20:06
DX: O20.0 Threatened abortion (principal); O23.41 Unspecified infection of urinary tract in pregnancy, first trimester; E11.9 Type 2 diabetes mellitus without complications; Z3A.12 12 weeks gestation of pregnancy; Z98.890 Other specified postprocedural states; Z79.899 Other long term (current) drug therapy; Z79.4 Long term (current) use of insulin; Z88.0 Allergy status to penicillin
CPT/HCPCS: 36415; 76801; 81001; 84702; 84703; 85025; 86900; 86901

== ENCOUNTER 2020-11-06 11:18 | Outpatient (CLI) | payer MEDICAID ==
[2020-11-06 11:57] VITALS: BP 120/59
[2020-11-06 12:24] LABS: Bacteria,Urine 2+ /HPF (Negative); Bilirubin,Urine NEG (Negative); Blood,Urine NEG (Negative); Color,Urine Yellow (Yellow); Mucus,Urine 1+ /HPF; Protein,Urine <15 mg/dL mg/dL (Negative); Urobilinogen,Urine < 2.0 mg/dL (<2.0)
[2020-11-06] MEDS ORDERED: LACTATED RINGERS 1,000 ML IV ONE (12:59)
--- NOTE | 2020-11-06 13:26 | Ultrasound Report ---
ULTRASOUND OBSTETRIC LIMITED INDICATION / CLINICAL INFORMATION: leaking fluid. TECHNIQUE: Transabdominal ultrasound imaging. COMPARISON: 08/05/2020 FINDINGS: HEART RATE (beats per minute): 134 AMNIOTIC FLUID INDEX (cm) = CARLYLE was not measured. Subjectively amniotic fluid volume appears within normal limits. PRESENTATION: Cephalic. ADDITIONAL FINDINGS: None. IMPRESSION: No significant abnormality. Signer Name: Shukri Camara Jr, MD Signed: 11/06/2020 1:22 PM Workstation Name: [id number]
[2020-11-06] MEDS ORDERED: ACETAMINOPHEN 325 MG TAB PO ONE (15:00)
== END 2020-11-06 13:50 | disposition home or self-care (01) ==
LOC: TRG 11:18 → APU 11:21 → TRG 13:50
PROVIDERS: ATTEND Obstetrics & Gynecology
DX: O42.912 Preterm premature rupture of membranes, unspecified as to length of time between rupture and onset of labor, second trimester (principal); Z3A.22 22 weeks gestation of pregnancy
CPT/HCPCS: 36415; 59025; 76815; 81001; 84112

== ENCOUNTER 2020-12-05 15:45 | Outpatient (CLI) | payer MEDICAID ==
[2020-12-05 16:40] VITALS: BP 121/56
[2020-12-05 18:08] LABS: Hematocrit 31.3 % (30.3-42.9); Hemoglobin 10.1 gm/dl (10.1-14.3); Mean Corpuscular HGB Conc 32 % (30-34); Mean Corpuscular Volume 72 fl (79-97); Platelet Count 235 K/mm3 (140-440); Red Blood Count 4.37 M/mm3 (3.65-5.03)
[2020-12-05 18:13] LABS: Bilirubin,Urine NEG (Negative); Blood,Urine NEG (Negative); Color,Urine Yellow (Yellow); Mucus,Urine 1+ /HPF
[2020-12-05 18:18] LABS: Alanine Aminotransferase 6 units/L (7-56)
== END 2020-12-05 20:16 | disposition left against medical advice (07) ==
LOC: TRG 15:45 → APU 15:48 → TRG 20:16
PROVIDERS: ATTEND Obstetrics & Gynecology
DX: I10 Essential (primary) hypertension (principal)
CPT/HCPCS: 36415; 59025; 81001; 82565; 83615; 84450; 84460; 84550; 85027

== ENCOUNTER 2021-01-25 02:26 | Outpatient (CLI) | payer MEDICAID ==
[2021-01-25 02:36] VITALS: BP 137/61
[2021-01-25] MEDS ORDERED: ACETAMINOPHEN 500 MG TAB PO ONE (02:47)
[2021-01-25] MEDS ORDERED: LACTATED RINGERS 1,000 ML IV SCH (03:00)
--- NOTE | 2021-01-25 05:39 | Ultrasound Report ---
Limited obstetrical ultrasound INDICATION: Third trimester , placental evaluation, CARLYLE assessment COMPARISON: 01/10/2021 FINDINGS: Well-developed fetus is again seen in a cephalic position. cardiac activity was docum ented at 130 bpm. Fundal placenta shows no evidence of abruption. Amniotic fluid volume is just withi n normal range at 7.1 cm, at the low end of the range. BIOPHYSICAL PROFILE breathing movements: 2/2 movements: 2/2 posture and tone tone: 2/2 Qualitative amniotic fluid volume: 2/2 Total score: 8/8, within normal limits Signer Name: Trell Evans MD Signed: 01/25/2021 5:35 AM Workstation Name: [id number]
== END 2021-01-25 05:18 | disposition home or self-care (01) ==
LOC: TRG 02:26 → APU 02:27 → TRG 05:18
PROVIDERS: ATTEND Student in an Organized Health Care Education/Training Program
DX: O62.9 Abnormality of forces of labor, unspecified (principal); O26.893 Other specified pregnancy related conditions, third trimester; R10.30 Lower abdominal pain, unspecified; Z3A.34 34 weeks gestation of pregnancy
CPT/HCPCS: 36415; 59025; 76815; 76819; 84112; 96360; 96361; J7120

== ENCOUNTER 2021-02-06 11:38 | Inpatient (IN) | payer MEDICAID ==
[2021-02-06] MEDS ORDERED: LACTATED RINGERS 1,000 ML ONE (12:22)
[2021-02-06] MEDS ORDERED: SIMETHICONE 80 MG CHEW TAB PO PRN (12:50)
[2021-02-06] MEDS ORDERED: ALUM-MAG HYDROXIDE-SIMETHICONE 200-200-20MG/5ML ORAL LIQD 30 ML PO PRN (12:50)
[2021-02-06] MEDS ORDERED: DOCUSATE SODIUM 100 MG CAP PO PRN (12:50)
[2021-02-06] MEDS ORDERED: SODIUM CHLORIDE NASAL SPRAY 44ML NS PRN (12:50)
[2021-02-06] MEDS ORDERED: PSEUDOEPHEDRINE 30 MG TAB PO PRN (12:50)
[2021-02-06] MEDS ORDERED: WITCH HAZEL/ GLYCERIN PAD TP PRN (12:50)
[2021-02-06] MEDS ORDERED: diphenhydrAMINE 25 MG CAP PO PRN (12:50)
[2021-02-06] MEDS ORDERED: MAGNESIUM HYDROXIDE (MOM) ORAL LIQD UDC PO PRN (12:50)
[2021-02-06] MEDS ORDERED: ONDANSETRON 4 MG/2 ML INJ IV PRN (12:50)
[2021-02-06] MEDS ORDERED: guaiFENesin DM 200/20 MG ORAL LIQD 10 ML PO PRN (12:50)
--- NOTE | 2021-02-06 12:59 | History and Physical Report ---
History of Present Illness Date of examination: 02/06/21 Chief complaint: pt sent from [facility] for admission d/t oligohydramnios History of present illness: EDC Confirmation: 03/06/2021 Past History : 11 Term Births: 4 Premature Births: 2 Living Children: 6 Para: 5 Mult. Births: 1 Prev : 0 Prev. attempt? 0 Aborta: 3 Elect. Ab: 3 Spont. Ab: 2 Ectopics: 0 # 1 Delivery date: 1994 Weeks Gestation: 42 labor: no Delivery type: Delivery location: [facility] Sex: Female weight: 7#14 Comments: no complications # 2 Delivery date: 1998 Weeks Gestation: 16w labor: yes Delivery type: D&E Hours of labor: "not long at all" Anesthesia type: none Delivery location: [place] Comments: quadruplets - was told "something was wrong with them and would need lifelong care". States that the fetsus were deformed. # 3 Delivery date: 2000 Weeks Gestation: 27 Delivery type: Delivery location: [facility] Sex: male/female weight: 6#/4# Comments: Twins, confirmed: 27weeks, twin to twin transfusion, induced - born vaginally. # 4 Delivery date: 1999 Weeks Gestation: 40 labor: no Delivery type: Delivery location: [place] Sex: Female weight: 7#14 Comments: no complications # 5 Delivery date: 2005 Weeks Gestation: 40 labor: no Delivery type: Delivery location: [place] Sex: Male weight: 6#13 Comments: no complications # 6 Delivery date: 07/06/2017 Weeks Gestation: 37 Delivery type: Vaginal Anesthesia type: epidural Delivery location: [facility] Inf[facility] Sex: male weight: 9.25 Comments: gestational diabetes: insulin dependent; AMA; LGA # 7 Delivery date: 09/1999 Delivery type: EAB Comments: Unsure if D&C performed. # 8 Delivery date: 05/2003 Delivery type: EAB Comments: Unsure if D&C was performed. No complications. # 9 Delivery date: 02/19 Weeks Gestation: 12 weeks Delivery type: SAB Comments: No D&C, or meds needed, no complications # 10 Delivery date: 11/2019 Weeks Gestation: 9 wks Delivery type: SAB Comments: No D&C or meds needed. No complications Risk Factors: Smoked Tobacco Use: Never smoker Smokeless Tobacco Use: Never Passive smoke exposure: no Drug use: no HIV high-risk behavior: no Caffeine use: <1 drinks per day Alcohol use: yes Type: occ Exercise: yes Times per week: 3 Type of Exercise: walking Seatbelt use: preg-mental health counselor % Sun Exposure: rarely Dietary Counseling: pn yes PAP Smear History: Date of Last PAP Smear: 06/03/2020 Results: Unknown (per pt) Previous Alcohol Use: Signed On - 11/18/2018 Alcohol use: no Exercise: no Seatbelt use: 100 % Past Medical History: Reviewed history from 11/18/2018 and no changes required: Abnormal Pap Smear - abnormal cells 2014, no colpo or bx. f/u pap 2015 NL diabetes hsv2 Past Surgical History: Reviewed history from 11/18/2018 and no changes required: negative Past Medical History Anesthesia Complications: negative Anemia: negative Autoimmune Disorder: negative Bleeding Disorder: negative Blood Transfusions: negative Breast Disease: negative Diabetes: negative Heart Disease: negative Hypertension: negative Hepatitis/Liver Disease: negative Kidney Disease/UTI: negative Neurologic/Epilepsy/Migraines: negative Phlebitis/Varicosities: negative Psychiatric: negative Pulmonary Disease/Asthma: positive, Asthma Thyroid Disease: negative Hospitalizations: negative Surgery (Non-ob/gyn doctor): 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 of genital herpes: yes Partner hx. of genital herpes: no Rash, Viral, or Febrile illness since last LMP? no Varicella/Chicken Pox Status: Previous Disease TB Risk: no Genetic History ADVANCED MATERNAL AGE Congenital Heart Defect: Mom: no Dad: no Alanis Disease: Mom: no Dad: no Thalassemia Mom: no Dad: no Neural Tube Defect Mom: no Dad: no Down's Syndrome Mom: no Dad: no Arnulfo-Sachs Mom: no Dad: no Sickle Cell Disease/Trait Mom: no Dad: no Hemophilia Mom: no Dad: no Muscular Dystrophy Mom: no Dad: no Cystic Fibrosis Mom: no Dad: no [place] Chorea Mom: no Dad: no Mental Retardation Mom: no Dad: no Fragile X Mom: no Dad: no Other Genetic/Chromosomal Disorder Mom: no Dad: no Child w/other defect Mom: no Dad: no Enviromental Exposures Xray Exposure: no Medication, drug, or alcohol use since LMP: no Chemical/Other Exposure: no Exposure to Cat Liter: no Hx of Parvovirus (Fifth Disease): no Occupational Exposure to Children: none Active Medications (reviewed today): TERCONAZOLE 0.8 % VAGINAL CREAM (TERCONAZOLE) 1 applicatorful intavaginally qhs x3days METFORMIN HCL 500 MG ORAL TABLET (METFORMIN HCL) Current Allergies (reviewed today): * LATEX (Critical) Past History Past Medical History: other (see HPI) Past Surgical History: other (see HPI) DIRECTOR OF VOCATIONAL 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 History: other (see HPI) Family/Genetic History: other (see HPI) - Obstetrical History Expected Date of Delivery: 03/06/21 Actual Gestation: 36 Week(s) 0 Day(s) : 11 Para: 5 Hx # Term Pregnancies: 4 Number of Pregnancies: 2 Spontaneous Abortions: 3 Induced : 2 Number of Living Children: 6 Medications and Allergies Allergies Allergy/AdvReac Type Severity Reaction Status Date / Time Penicillins Allergy Shortness Verified 11/08/18 11:27 of Breath latex AdvReac Severe Swelling Verified 11/06/20 11:58 Home Medications Medication Instructions Recorded Confirmed Last Taken Type Insulin NPH Human Isophane 26 units SQ DAILY 06/22/17 02/06/21 2 Days Ago History [Novolin N] ~02/04/21 26 Insulin NPH Human Isophane 60 units SQ QAM 06/22/17 02/06/21 2 Days Ago History [Novolin N] ~02/04/21 60 Insulin Regular, Human Inj 26 units SQ QPM 06/22/17 02/06/21 2 Days Ago History [NovoLIN R Inj] ~02/04/21 26 Insulin Regular, Human Inj 32 units SQ QAM 06/22/17 02/06/21 2 Days Ago History [NovoLIN R Inj] ~02/04/21 32 Pnv,Calcium 72/Iron/Folic Acid 1 each PO DAILY #90 tablet 11/08/18 02/06/21 2 Days Ago Rx [Preplus Ca-Fe 27 mg-FA 1 mg Tb] ~02/04/21 1 Review of Systems All systems: negative - Vital Signs Vital signs: Vital Signs Pulse Pulse Ox 76 71 L 02/06/21 12:08 02/06/21 12:08 Temp Pulse Resp BP Pulse Ox 98 H 132/57 100 02/06/21 12:53 02/06/21 12:43 02/06/21 12:53 - Physical Exam Cardiovascular: Regular rate Lungs: Positive: Normal air movement Abdomen: Positive: normal appearance, soft Genitourinary (Female): Positive: normal external genitalia, normal perenium Vulva: both: normal Vagina: Positive: normal moisture Uterus: Positive: normal size Anus/Rectum: Positive: normal perianal skin Extremities: Positive: normal Deep Tendon Reflex Grade: Normal +2 - Obstetrical FHR: category 1 Uterine Contraction Monitor Mode: External Results Result Diagrams: 02/06/21 13:00 All other labs normal. Assessment and Plan 40 y/o admitted from [facility] d/t oligohydramnios, CARLYLE 5cms. no s/s of SROM from patient. repeat CARLYLE ordered for tomorrow. pt has not been seen in [facility] office since 32 weeks despite needing weekly NSTs. Admission orders E MR. - Patient Problems (1) 36 weeks gestation of Current Visit: Yes Status: Acute (2) Elderly multigravida in third trimester Current Visit: No Status: Acute (3) Noncompliant patient Current Visit: No Status: Acute Qualifiers: Trimester: third trimester Qualified Code(s): O09.893 - Supervision of other high risk pregnancies, third trimester; Z91.19 - Patient's noncompliance with other medical treatment and regimen Plan to address problem: third trimester labs ordered; GBS, GC/CT, HIV and RPR (4) Diabetes mellitus with insulin therapy Current Visit: Yes Status: Acute Plan to address problem: acchecks fasting, AC & HS Scheduled insulin ordered (5) Oligohydramnios in third trimester Current Visit: Yes Status: Acute Qualifiers: Fetus number: single or unspecified fetus Qualified Code(s): O41.03X0 - Oligohydramnios, third trimester, not applicable or unspecified Plan to address problem: ROM plus collected - no s/s of SROM IVF and PO hydration over night repeat CARLYLE in AM (6) HSV (herpes simplex virus) infection Current Visit: Yes Status: Acute Plan to address problem: start valtrex
[2021-02-06] MEDS ORDERED: LACTATED RINGERS 1,000 ML IV SCH (13:00)
[2021-02-06 13:22] LABS: Basophils % (Auto) 0.6 % (0.0-1.8); Eosinophils # (Auto) 0.1 K/mm3 (0.0-0.4); Eosinophils % (Auto) 1.1 % (0.0-4.3); Hematocrit 34.1 % (30.3-42.9); Hemoglobin 10.8 gm/dl (10.1-14.3); Lymphocytes # (Auto) 1.4 K/mm3 (1.2-5.4); Lymphocytes % (Auto) 25.1 % (13.4-35.0); Mean Corpuscular HGB Conc 32 % (30-34); Mean Corpuscular Volume 71 fl (79-97); Monocytes # (Auto) 0.7 K/mm3 (0.0-0.8); Platelet Count 270 K/mm3 (140-440); Red Blood Count 4.81 M/mm3 (3.65-5.03)
[2021-02-06] MEDS ORDERED: DEXTROSE 50% IN WATER (25GM) 50 ML SYRINGE IV PRN (14:00)
[2021-02-06] MEDS: INSULIN LISPRO 100 UNIT/ML SUB-Q SCH ×3 (14:58→21:35)
[2021-02-06] MEDS ORDERED: INSULIN REGULAR, HUMAN 100 UNITS/1 ML SUB-Q SCH (17:00)
[2021-02-06] MEDS ORDERED: INSULIN NPH, HUMAN 100 UNIT/1 ML SUB-Q SCH (17:00)
[2021-02-07] MEDS: ACETAMINOPHEN 325 MG TAB PO PRN ×2 (02:52→08:16)
[2021-02-07] MEDS: INSULIN LISPRO 100 UNIT/ML SUB-Q SCH (07:37)
[2021-02-07] MEDS ORDERED: INSULIN REGULAR, HUMAN 100 UNITS/1 ML SUB-Q SCH (08:00)
[2021-02-07] MEDS ORDERED: INSULIN NPH, HUMAN 100 UNIT/1 ML SUB-Q SCH (08:00)
--- NOTE | 2021-02-07 08:03 | Consultation ---
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 [employer] History: other (see HPI) Family/Genetic History: other (see HPI) - Obstetrical History : 11 Medications and Allergies Allergies Allergy/AdvReac Type Severity Reaction Status Date / Time Penicillins Allergy Shortness Verified 11/08/18 11:27 of Breath latex AdvReac Severe Swelling Verified 11/06/20 11:58 Home Medications Medication Instructions Recorded Confirmed Last Taken Type Insulin NPH Human Isophane 26 units SQ DAILY 06/22/17 02/06/21 2 Days Ago History [Novolin N] ~02/04/21 26 Insulin NPH Human Isophane 60 units SQ QAM 06/22/17 02/06/21 2 Days Ago History [Novolin N] ~02/04/21 60 Insulin Regular, Human Inj 26 units SQ QPM 06/22/17 02/06/21 2 Days Ago History [NovoLIN R Inj] ~02/04/21 26 Insulin Regular, Human Inj 32 units SQ QAM 06/22/17 02/06/21 2 Days Ago History [NovoLIN R Inj] ~02/04/21 32 Pnv,Calcium 72/Iron/Folic Acid 1 each PO DAILY #90 tablet 11/08/18 02/06/21 2 Days Ago Rx [Preplus Ca-Fe 27 mg-FA 1 mg Tb] ~02/04/21 1 Active Meds: Active Medications Acetaminophen (Acetaminophen 325 Mg Tab) 650 mg PO Q4H PRN PRN Reason: Pain MILD(1-3)/Fever >100.5/NGUYEN Last Admin: 02/07/21 02:52 Dose: 650 mg Documented by: Al Hydrox/Mg Hydrox/Simethicone (Alum-Mag Hydroxide-Simethicone [id number]/5ml Oral Liqd 30 Ml) 30 ml PO Q6H PRN PRN Reason: Indigestion Dextrose (Dextrose 50% In Water (25gm) 50 Ml Syringe) 50 ml IV Q30MIN PRN; Protocol PRN Reason: Hypoglycemia Diphenhydramine HCl (Diphenhydramine 25 Mg Cap) 25 mg PO Q6H PRN PRN Reason: Itching Docusate Sodium (Docusate Sodium 100 Mg Cap) 100 mg PO Q12H PRN PRN Reason: Constipation Guaifenesin (Guaifenesin Dm 200/20 Mg Oral Liqd 10 Ml) 10 ml PO Q6H PRN PRN Reason: Cough Lactated Ringer's (Lactated Ringers) 1,000 mls @ 125 mls/hr IV DIRECT DANIELITO Last Admin: 02/07/21 08:02 Dose: 125 mls/hr Documented by: Insulin Human Lispro (Insulin Lispro 100 Unit/Ml) 0 unit SUB-Q ACHS [facility]; Protocol Last Admin: 02/07/21 07:37 Dose: 2 unit Documented by: Insulin Human NPH (Insulin Nph, Human 100 Unit/1 Ml) 74 unit SUB-Q QAMDIAB [facility] Insulin Human NPH (Insulin Nph, Human 100 Unit/1 Ml) 30 unit SUB-Q QPMDIAB [facility] Last Admin: 02/06/21 17:07 Dose: 30 unit Documented by: Insulin Human Regular (Insulin Regular, Human 100 Units/1 Ml) 44 units SUB-Q QAMDIAB [facility] Insulin Human Regular (Insulin Regular, Human 100 Units/1 Ml) 36 units SUB-Q QPMDIAB [facility] Last Admin: 02/06/21 17:08 Dose: 36 units Documented by: Magnesium Hydroxide (Magnesium Hydroxide (Mom) Oral Liqd Udc) 30 ml PO QHS PRN PRN Reason: Laxative Effect Multivitamins/Iron/Calcium ( [id number]-Rz Fumarate-Folic Acid Vit Tab) 1 each PO QDAY [facility] Ondansetron HCl (Ondansetron 4 Mg/2 Ml Inj) 4 mg IV Q6H PRN PRN Reason: Nausea And Vomiting Pseudoephedrine HCl (Pseudoephedrine 30 Mg Tab) 30 mg PO Q4H PRN PRN Reason: Nasal Congestion Simethicone (Simethicone 80 Mg Chew Tab) 80 mg PO Q6H PRN PRN Reason: Gas pain Sodium Chloride (Sodium Chloride Nasal [place] 44ml) 2 spray NS Q4H PRN PRN Reason: Congestion Valacyclovir HCl (Valacyclovir 500 Mg Tab) 1,000 mg PO QDAY [facility] Witch [place]/Glycerin (Witch [place]/ Glycerin Pad) 1 each TP PRN PRN PRN Reason: Hemorrhoids - Vital Signs Vital signs: Vital Signs Pulse Pulse Ox 76 71 L 02/06/21 12:08 02/06/21 12:08 Temp Pulse Resp BP Pulse Ox 98.1 F 100 H 18 114/59 99 02/07/21 07:45 02/07/21 08:00 02/07/21 07:45 02/07/21 07:10 02/07/21 08:00 Results Result Diagrams: 02/06/21 13:00 Abnormal lab results 02/06/21 02/06/21 02/06/21 Range/Units 13:00 13:11 16:42 MCV 71 L (79-97) fl MCH 23 L (28-32) pg RDW 18.0 H (13.2-15.2) % [place] % (Auto) 12.0 H (0.0-7.3) % POC Glucose 211 H 192 H (70-105) mg/dL 02/06/21 02/07/21 Range/Units 21:25 06:26 MCV (79-97) fl MCH (28-32) pg RDW (13.2-15.2) % [place] % (Auto) (0.0-7.3) % POC Glucose 155 H 182 H (70-105) mg/dL All other labs normal. Assessment and Plan [facility] Pt seen Consult will be faxed to unit
--- NOTE | 2021-02-07 09:12 | Progress Note ---
Assessment and Plan A: 40 y.o. @ 36.1 wks, DM Type 2, Oligohydramnios. P: Ultrasound to be repeated today. Continue to monitor glucose levels while admitted. Awaiting recommendations from [facility]. Subjective - Subjective Date of service: 02/07/21 (Pt doing well this AM) Principal diagnosis: IUP @ 36.1 wks, Antepartum, DM Type 2, AMA Patient reports: movement normal, no new complaints, no loss of fluid, no vaginal bleeding, no contractions Objective - Vital Signs Vital Signs: Vital Signs - 12hr 02/06/21 02/06/21 02/06/21 21:13 21:18 21:23 Temperature Pulse Rate 93 H 94 H 96 H Respiratory Rate Blood Pressure O2 Sat by Pulse 99 99 99 Oximetry O2 Sat by Pulse Oximetry [ Bilateral] 02/06/21 02/06/21 02/06/21 21:28 21:33 21:38 Temperature Pulse Rate 98 H 94 H 94 H Respiratory Rate Blood Pressure O2 Sat by Pulse 99 99 99 Oximetry O2 Sat by Pulse Oximetry [ Bilateral] 02/06/21 02/06/21 02/06/21 21:43 21:48 21:53 Temperature Pulse Rate 90 93 H 89 Respiratory Rate Blood Pressure O2 Sat by Pulse 98 98 98 Oximetry O2 Sat by Pulse Oximetry [ Bilateral] 02/06/21 02/06/21 02/06/21 21:58 22:03 22:08 Temperature Pulse Rate 90 94 H 97 H Respiratory Rate Blood Pressure O2 Sat by Pulse 98 97 100 Oximetry O2 Sat by Pulse Oximetry [ Bilateral] 02/06/21 02/06/21 02/06/21 22:13 22:18 22:23 Temperature Pulse Rate 89 92 H 93 H Respiratory Rate Blood Pressure O2 Sat by Pulse 99 98 99 Oximetry O2 Sat by Pulse Oximetry [ Bilateral] 02/06/21 02/06/21 02/06/21 22:40 22:45 22:50 Temperature Pulse Rate 106 H 94 H 90 Respiratory Rate Blood Pressure O2 Sat by Pulse 100 99 99 Oximetry O2 Sat by Pulse Oximetry [ Bilateral] 02/06/21 02/06/21 02/06/21 22:55 23:00 23:05 Temperature Pulse Rate 87 90 88 Respiratory Rate Blood Pressure O2 Sat by Pulse 99 99 99 Oximetry O2 Sat by Pulse Oximetry [ Bilateral] 02/06/21 02/06/21 02/06/21 23:10 23:15 23:21 Temperature Pulse Rate 93 H 91 H 94 H Respiratory Rate Blood Pressure O2 Sat by Pulse 99 99 99 Oximetry O2 Sat by Pulse Oximetry [ Bilateral] 02/06/21 02/06/21 02/06/21 23:26 23:31 23:36 Temperature Pulse Rate 86 93 H 94 H Respiratory Rate Blood Pressure O2 Sat by Pulse 99 98 98 Oximetry O2 Sat by Pulse Oximetry [ Bilateral] 02/06/21 02/06/21 02/06/21 23:41 23:46 23:51 Temperature Pulse Rate 93 H 92 H 91 H Respiratory Rate Blood Pressure O2 Sat by Pulse 99 98 98 Oximetry O2 Sat by Pulse Oximetry [ Bilateral] 02/06/21 02/07/21 02/07/21 23:56 00:01 00:06 Temperature Pulse Rate 91 H 92 H 94 H Respiratory Rate Blood Pressure O2 Sat by Pulse 99 99 99 Oximetry O2 Sat by Pulse Oximetry [ Bilateral] 02/07/21 02/07/21 02/07/21 00:10 00:16 00:21 Temperature Pulse Rate 95 H 94 H 89 Respiratory Rate Blood Pressure O2 Sat by Pulse 99 99 98 Oximetry O2 Sat by Pulse Oximetry [ Bilateral] 02/07/21 02/07/21 02/07/21 00:26 00:31 00:36 Temperature Pulse Rate 90 91 H 89 Respiratory Rate Blood Pressure O2 Sat by Pulse 98 99 98 Oximetry O2 Sat by Pulse Oximetry [ Bilateral] 02/07/21 02/07/21 02/07/21 00:41 00:46 00:51 Temperature Pulse Rate 91 H 84 88 Respiratory Rate Blood Pressure O2 Sat by Pulse 98 98 97 Oximetry O2 Sat by Pulse Oximetry [ Bilateral] 02/07/21 02/07/21 02/07/21 00:56 01:01 01:05 Temperature Pulse Rate 104 H 89 89 Respiratory Rate Blood Pressure O2 Sat by Pulse 98 98 98 Oximetry O2 Sat by Pulse Oximetry [ Bilateral] 02/07/21 02/07/21 02/07/21 01:11 01:16 01:21 Temperature Pulse Rate 87 90 89 Respiratory Rate Blood Pressure O2 Sat by Pulse 99 98 98 Oximetry O2 Sat by Pulse Oximetry [ Bilateral] 02/07/21 02/07/21 02/07/21 01:26 01:31 01:36 Temperature Pulse Rate 88 85 88 Respiratory Rate Blood Pressure O2 Sat by Pulse 98 99 98 Oximetry O2 Sat by Pulse Oximetry [ Bilateral] 02/07/21 02/07/21 02/07/21 01:41 03:12 03:18 Temperature Pulse Rate 87 94 H 96 H Respiratory Rate Blood Pressure O2 Sat by Pulse 99 99 99 Oximetry O2 Sat by Pulse Oximetry [ Bilateral] 02/07/21 02/07/21 02/07/21 03:23 03:28 03:33 Temperature Pulse Rate 88 89 88 Respiratory Rate Blood Pressure O2 Sat by Pulse 98 98 100 Oximetry O2 Sat by Pulse Oximetry [ Bilateral] 02/07/21 02/07/21 02/07/21 03:38 03:42 03:48 Temperature Pulse Rate 86 94 H 89 Respiratory Rate Blood Pressure O2 Sat by Pulse 97 98 99 Oximetry O2 Sat by Pulse Oximetry [ Bilateral] 02/07/21 02/07/21 02/07/21 03:53 03:58 04:03 Temperature Pulse Rate 86 91 H 89 Respiratory Rate Blood Pressure O2 Sat by Pulse 99 98 100 Oximetry O2 Sat by Pulse Oximetry [ Bilateral] 02/07/21 02/07/21 02/07/21 04:08 04:13 04:18 Temperature Pulse Rate 87 87 88 Respiratory Rate Blood Pressure O2 Sat by Pulse 98 98 98 Oximetry O2 Sat by Pulse Oximetry [ Bilateral] 02/07/21 02/07/21 02/07/21 04:23 04:28 04:33 Temperature Pulse Rate 87 86 89 Respiratory Rate Blood Pressure O2 Sat by Pulse 98 98 98 Oximetry O2 Sat by Pulse Oximetry [ Bilateral] 02/07/21 02/07/21 02/07/21 04:38 04:49 04:54 Temperature Pulse Rate 95 H 108 H 103 H Respiratory Rate Blood Pressure O2 Sat by Pulse 100 99 98 Oximetry O2 Sat by Pulse Oximetry [ Bilateral] 02/07/21 02/07/21 02/07/21 04:59 05:04 05:09 Temperature Pulse Rate 94 H 94 H 100 H Respiratory Rate Blood Pressure O2 Sat by Pulse 100 99 99 Oximetry O2 Sat by Pulse Oximetry [ Bilateral] 02/07/21 02/07/21 02/07/21 05:14 05:19 05:24 Temperature Pulse Rate 101 H 94 H 98 H Respiratory Rate Blood Pressure O2 Sat by Pulse 98 98 100 Oximetry O2 Sat by Pulse Oximetry [ Bilateral] 02/07/21 02/07/21 02/07/21 05:29 05:34 05:39 Temperature Pulse Rate 95 H 98 H 97 H Respiratory Rate Blood Pressure O2 Sat by Pulse 99 99 99 Oximetry O2 Sat by Pulse Oximetry [ Bilateral] 02/07/21 02/07/21 02/07/21 05:44 05:49 05:53 Temperature Pulse Rate 95 H 89 96 H Respiratory Rate Blood Pressure O2 Sat by Pulse 100 99 99 Oximetry O2 Sat by Pulse Oximetry [ Bilateral] 02/07/21 02/07/21 02/07/21 05:59 06:04 06:09 Temperature Pulse Rate 93 H 92 H 95 H Respiratory Rate Blood Pressure O2 Sat by Pulse 99 99 99 Oximetry O2 Sat by Pulse Oximetry [ Bilateral] 02/07/21 02/07/21 02/07/21 06:14 06:19 06:24 Temperature Pulse Rate 96 H 96 H 91 H Respiratory Rate Blood Pressure O2 Sat by Pulse 99 99 99 Oximetry O2 Sat by Pulse Oximetry [ Bilateral] 02/07/21 02/07/21 02/07/21 06:29 06:45 06:50 Temperature Pulse Rate 101 H 107 H 105 H Respiratory Rate Blood Pressure O2 Sat by Pulse 100 99 99 Oximetry O2 Sat by Pulse Oximetry [ Bilateral] 02/07/21 02/07/21 02/07/21 06:55 07:00 07:05 Temperature Pulse Rate 100 H 94 H 103 H Respiratory Rate Blood Pressure O2 Sat by Pulse 97 98 98 Oximetry O2 Sat by Pulse Oximetry [ Bilateral] 02/07/21 02/07/21 02/07/21 07:06 07:10 07:15 Temperature Pulse Rate 91 H 96 H 98 H Respiratory Rate Blood Pressure 133/59 114/59 O2 Sat by Pulse 98 98 Oximetry O2 Sat by Pulse Oximetry [ Bilateral] 02/07/21 02/07/21 02/07/21 07:20 07:25 07:30 Temperature Pulse Rate 98 H 97 H 97 H Respiratory Rate Blood Pressure O2 Sat by Pulse 99 99 99 Oximetry O2 Sat by Pulse Oximetry [ Bilateral] 02/07/21 02/07/21 02/07/21 07:35 07:39 07:45 Temperature 98.1 F Pulse Rate 102 H 102 H 100 H Respiratory 18 Rate Blood Pressure O2 Sat by Pulse 99 99 100 Oximetry O2 Sat by Pulse Oximetry [ Bilateral] 02/07/21 02/07/21 02/07/21 07:46 07:50 07:55 Temperature Pulse Rate 100 H 97 H Respiratory Rate Blood Pressure O2 Sat by Pulse 99 98 Oximetry O2 Sat by Pulse 99 Oximetry [ Bilateral] 02/07/21 02/07/21 02/07/21 08:00 08:05 08:10 Temperature Pulse Rate 100 H 98 H 103 H Respiratory Rate Blood Pressure O2 Sat by Pulse 99 99 99 Oximetry O2 Sat by Pulse Oximetry [ Bilateral] 02/07/21 02/07/21 02/07/21 08:15 08:20 08:25 Temperature Pulse Rate 101 H 115 H 95 H Respiratory Rate Blood Pressure O2 Sat by Pulse 99 100 99 Oximetry O2 Sat by Pulse Oximetry [ Bilateral] 02/07/21 02/07/21 02/07/21 08:30 08:35 08:40 Temperature Pulse Rate 95 H 104 H 97 H Respiratory Rate Blood Pressure O2 Sat by Pulse 99 98 98 Oximetry O2 Sat by Pulse Oximetry [ Bilateral] 02/07/21 02/07/21 02/07/21 08:45 08:50 08:55 Temperature Pulse Rate 97 H 98 H 100 H Respiratory Rate Blood Pressure O2 Sat by Pulse 98 98 99 Oximetry O2 Sat by Pulse Oximetry [ Bilateral] 02/07/21 02/07/21 02/07/21 09:00 09:05 09:10 Temperature Pulse Rate 102 H 102 H 110 H Respiratory Rate Blood Pressure O2 Sat by Pulse 97 99 99 Oximetry O2 Sat by Pulse Oximetry [ Bilateral] - Exam Narrative Exam: Pt RN patient states that she has not had a BM for 2 months. When questioned, but confirmed. Will administer MOM and Colace to see if any results. Glucose levels have been 155-211. Insulin sliding scale and home insulin ordered. Will continue to monitor pt and glucose levels. Breasts: deferred Cardiovascular: Normal S1, Normal S2 Lungs: Clear to auscultation Abdomen: Present: normal appearance, soft Uterus: Present: normal (For 36.1 wk gestation. ) FHR: category 1 Uterine Contraction Monitor Mode: External Uterine Contraction Pattern: Absent Extremities: edema (Trace generalized edema noted. ) - Labs Labs: Abnormal Labs 02/06/21 02/06/21 02/06/21 13:00 13:11 16:42 MCV 71 L MCH 23 L RDW 18.0 H [place] % (Auto) 12.0 H POC Glucose 211 H 192 H 02/06/21 02/07/21 21:25 06:26 MCV MCH RDW [place] % (Auto) POC Glucose 155 H 182 H Laboratory Results - last 24 hr 02/06/21 02/06/21 02/06/21 13:00 13:00 13:00 WBC 5.7 RBC 4.81 Hgb 10.8 Hct 34.1 MCV 71 L MCH 23 L MCHC 32 RDW 18.0 H Plt Count 270 Lymph % (Auto) 25.1 [place] % (Auto) 12.0 H Eos % (Auto) 1.1 Baso % (Auto) 0.6 Lymph # (Auto) 1.4 [place] # (Auto) 0.7 Eos # (Auto) 0.1 Baso # (Auto) 0.0 Seg Neutrophils % 61.2 Seg Neutrophils # 3.5 POC Glucose Membranes Rupture Syphilis IgG Antibody Nonreactive HIV 1&2 Antibody Rapid HIV P24 Antigen Blood Type O POSITIVE Antibody Screen Negative 02/06/21 02/06/21 02/06/21 13:00 13:10 13:11 WBC RBC Hgb Hct MCV MCH MCHC RDW Plt Count Lymph % (Auto) [place] % (Auto) Eos % (Auto) Baso % (Auto) Lymph # (Auto) [place] # (Auto) Eos # (Auto) Baso # (Auto) Seg Neutrophils % Seg Neutrophils # POC Glucose 211 H Membranes Rupture Negative Syphilis IgG Antibody HIV 1&2 Antibody Rapid Non react HIV P24 Antigen Non react Blood Type Antibody Screen 02/06/21 02/06/21 02/07/21 16:42 21:25 06:26 WBC RBC Hgb Hct MCV MCH MCHC RDW Plt Count Lymph % (Auto) [place] % (Auto) Eos % (Auto) Baso % (Auto) Lymph # (Auto) [place] # (Auto) Eos # (Auto) Baso # (Auto) Seg Neutrophils % Seg Neutrophils # POC Glucose 192 H 155 H 182 H Membranes Rupture Syphilis IgG Antibody HIV 1&2 Antibody Rapid HIV P24 Antigen Blood Type Antibody Screen
[2021-02-07] MEDS ORDERED: valACYclovir 500 MG TAB PO SCH (10:00)
[2021-02-07] MEDS ORDERED: PRENATAL VIT27-FE FUMARATE-FOLIC ACID VIT TAB PO SCH (10:00)
[2021-02-07 11:41] VITALS: BP 105/54
--- NOTE | 2021-02-07 11:42 | Ultrasound Report ---
ULTRASOUND OBSTETRIC LIMITED INDICATION / CLINICAL INFORMATION: CARLYLE. Clinical Gestational Age (GA) in weeks, days: 36 weeks 1 day TECHNIQUE: Transabdominal. COMPARISON: OB biophysical profile 01/25/2021. FINDINGS: HEART RATE (beats per minute): 124 AMNIOTIC FLUID INDEX (cm) = 15.8 (normal = 7-24 cm) PRESENTATION: Cephalic. ADDITIONAL FINDINGS: None. IMPRESSION: 1. Normal CARLYLE. No significant abnormality. Scribed by: Eleanor Parker RDMS, RVT Scribed: 02/07/2021 10:34 AM I have reviewed the images, agree with this report, and edited this report as needed. Signer Name: Manny Marino MD Signed: 02/07/2021 11:37 AM Workstation Name: [id number]
--- NOTE | 2021-02-07 12:12 | Discharge Summary ---
Providers - Providers Date of Admission: 02/06/21 11:39 Date of discharge: 02/07/21 (CARLYLE normal, may be discharged home.) Attending physician: ARLETTE MEJIA Primary care physician: ARLETTE MEJIA Hospitalization Reason for admission: observation Discharge diagnosis: other (Undelievered at 36.1 wks, DM Type 2) Pertinent studies: Pt was admitted to L&D under observation status per [facility] recommendations d/t oligohydramnios noted at an office visit. Her CARLYLE is now WNL @ 15.8. Per [facility] recommendation she can be discharged home with IOL to be scheduled @ 37 wks. IOL scheduled for 02/13 @ 0830am. Pt aware of IOL date and time. We also discussed when to call the office with questions and concerns. She is to follow her insulin regime prescribed and pt verbalized understanding of this. Her appointments are as follows: [facility] Feb 10, our office 02/11 @ 0930, and IOL 02/13 @ 0830. Pt was encouraged to keep all appointments. Hospital course: S: Pt doing well. Denies vaginal bleeding, LOF, ctxs. O: VSS. Glucose levels have been 155-211. Category 1 monitor strip. No ctxs noted. A: 40 y.o. @ 36.1 wks, DM, Type 2.Oligohydramnios at [facility] appointment, now with a normal CARLYLE. P: Discharge with instructions. Pt given dates of all and IOL appointments and encouraged to keep. Condition at discharge: Good Disposition: 01 HOME / SELF CARE / HOMELESS Plan - Provider Discharge Summary Activity: routine Diet: other (Diabetic diet) Additional instructions: [] Smoking cessation referral if applicable(refer to patient education folder for contact #) [] Refer to [facility] Booklet Call your doctor immediately for: * Fever > 100.5 * Heavy vaginal bleeding ( >1 pad per hour) * Severe persistent headache * Shortness of breath * Reddened, hot, painful area to leg or breast * Drainage or odor from incision. * Keep incision clean and dry at all times and follow doctor's instructions regarding bathing/showering Please keep all scheduled appointments scheduled: 1. Feb 10 with [facility]. 2. Feb 11 @ 0930am at [facility]. 3. Feb 13 @ 0830 am for your induction of labor. Should you have any vaginal bleeding like a period, contractions, feeling like your water broke, baby not moving like the baby normally does, or any other questions or concerns please do not hesitate to call the office at [phone]. - Follow up plan Follow up: ARLETTE MEJIA MD [Primary Care Provider] - 7 Days
== END 2021-02-07 12:21 | disposition home or self-care (01) | DRG 781 ==
LOC: LD 11:38 → TRG 11:38 → LD 11:39 → TRG 13:01
PROVIDERS: ADMIT Obstetrics & Gynecology; ATTEND Obstetrics & Gynecology
DX: O41.03X0 Oligohydramnios, third trimester, not applicable or unspecified (principal); O98.813 Other maternal infectious and parasitic diseases complicating pregnancy, third trimester; O26.43 Herpes gestationis, third trimester; Z3A.36 36 weeks gestation of pregnancy; Z20.822 Contact with and (suspected) exposure to COVID-19; O24.913 Unspecified diabetes mellitus in pregnancy, third trimester; Z88.0 Allergy status to penicillin; Z91.040 Latex allergy status
CPT/HCPCS: 36415; 76815; 82962; 84112; 85025; 86592; 86850; 86900; 86901; 87116; 87591; 87806; G0378; J1815; J7120; U0003

== ENCOUNTER 2021-02-13 08:55 | Inpatient (IN) | payer MEDICAID ==
[2021-02-13] MEDS ORDERED: ACETAMINOPHEN 325 MG TAB PO PRN (09:18)
[2021-02-13] MEDS ORDERED: MINERAL OIL 30 ML ORAL LIQD PO PRN (09:18)
[2021-02-13] MEDS ORDERED: miSOPROStol 200 MCG TAB PR PRN (09:18)
[2021-02-13] MEDS ORDERED: OXYTOCIN 10 UNIT/1 ML INJ IM PRN (09:18)
[2021-02-13] MEDS ORDERED: CARBOPROST TROMETHAMINE 250 MCG/1 ML INJ IM PRN (09:18)
[2021-02-13] MEDS ORDERED: METHYLERGONOVINE MALEATE 0.2 MG/ML VIAL IM PRN (09:18)
[2021-02-13] MEDS ORDERED: TERBUTALINE 1 MG/1 ML INJ SUB-Q PRN (09:18)
[2021-02-13] MEDS ORDERED: LOPERAMIDE 2 MG CAP PO PRN (09:18)
[2021-02-13] MEDS ORDERED: fentaNYL 100 MCG/2 ML INJ IV PRN (09:18)
[2021-02-13] MEDS ORDERED: BUTORPHANOL 2 MG/1 ML INJ IV PRN ×2 (09:18)
[2021-02-13] MEDS ORDERED: DEXTROSE 50% IN WATER (25GM) 50 ML SYRINGE IV PRN (09:23)
--- NOTE | 2021-02-13 09:33 | History and Physical Report ---
History of Present Illness Date of examination: 02/13/21 Date of admission: 02/13/21 08:55 Chief complaint: IOL @ 37+0 here for IOL History of present illness: EDC Confirmation: 03/06/2021 Past History : 11 Term Births: 4 Premature Births: 2 Living Children: 6 Para: 5 Mult. Births: 1 Prev : 0 Prev. attempt? 0 Aborta: 3 Elect. Ab: 3 Spont. Ab: 2 Ectopics: 0 # 1 Delivery date: 1994 Weeks Gestation: 42 labor: no Delivery type: Delivery location: [place] Infant Sex: Female weight: 7#14 Comments: no complications # 2 Delivery date: 1998 Weeks Gestation: 16w labor: yes Delivery type: D&E Hours of labor: "not long at all" Anesthesia type: none Delivery location: [place] Comments: quadruplets - was told "something was wrong with them and would need lifelong care". States that the fetsus were deformed. # 3 Delivery date: 2000 Weeks Gestation: 27 Delivery type: Delivery location: [place] Sex: male/female weight: 6#/4# Comments: Twins, confirmed: 27weeks, twin to twin transfusion, induced - born vaginally. # 4 Delivery date: 1999 Weeks Gestation: 40 labor: no Delivery type: Delivery location: [place] Sex: Female weight: 7#14 Comments: no complications # 5 Delivery date: 2005 Weeks Gestation: 40 labor: no Delivery type: Delivery location: [place] [facility] Sex: Male weight: 6#13 Comments: no complications # 6 Delivery date: 07/06/2017 Weeks Gestation: 37 Delivery type: Vaginal Anesthesia type: epidural Delivery location: [facility] Sex: male weight: 9.25 Comments: gestational diabetes: insulin dependent; AMA; LGA # 7 Delivery date: 09/1999 Delivery type: EAB Comments: Unsure if D&C performed. # 8 Delivery date: 05/2003 Delivery type: EAB Comments: Unsure if D&C was performed. No complications. # 9 Delivery date: 02/19 Weeks Gestation: 12 weeks Delivery type: SAB Comments: No D&C, or meds needed, no complications # 10 Delivery date: 11/2019 Weeks Gestation: 9 wks Delivery type: SAB Comments: No D&C or meds needed. 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 f/u pap 2015 NL diabetes hsv2 Past Surgical History: Reviewed history from 11/18/2018 and no changes required: negative Past Medical History Anesthesia Complications: negative Anemia: negative Autoimmune Disorder: negative Bleeding Disorder: negative Blood Transfusions: negative Breast Disease: negative Diabetes: negative Heart Disease: negative Hypertension: negative Hepatitis/Liver Disease: negative Kidney Disease/UTI: negative Neurologic/Epilepsy/Migraines: negative Phlebitis/Varicosities: negative Psychiatric: negative Pulmonary Disease/Asthma: positive, Asthma Thyroid Disease: negative Hospitalizations: negative Surgery (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 of genital herpes: yes Partner hx. of genital herpes: no Rash, Viral, or Febrile illness since last LMP? no Varicella/Chicken Pox Status: Previous Disease TB Risk: no Genetic History ADVANCED MATERNAL AGE Congenital Heart Defect: Mom: no Dad: no Alanis Disease: Mom: no Dad: no Thalassemia Mom: no Dad: no Neural Tube Defect Mom: no Dad: no Down's Syndrome Mom: no Dad: no Arnulfo-Sachs Mom: no Dad: no Sickle Cell Disease/Trait Mom: no Dad: no Hemophilia Mom: no Dad: no Muscular Dystrophy Mom: no Dad: no Cystic Fibrosis Mom: no Dad: no Aniwa Chorea Mom: no Dad: no Mental Retardation Mom: no Dad: no Fragile X Mom: no Dad: no Other Genetic/Chromosomal Disorder Mom: no Dad: no Child w/other defect Mom: no Dad: no Enviromental Exposures Xray Exposure: no Medication, drug, or alcohol use since LMP: no Chemical/Other Exposure: no Exposure to Cat Liter: no Hx of Parvovirus (Fifth Disease): no Occupational Exposure to Children: none Active Medications (reviewed today): TERCONAZOLE 0.8 % VAGINAL CREAM (TERCONAZOLE) 1 applicatorful intavaginally qhs x3days METFORMIN HCL 500 MG ORAL TABLET (METFORMIN HCL) Current Allergies (reviewed today): * LATEX (Critical) Past History Past Medical History: other (See HPI) Past Surgical History: other (See HPI) 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 DEVELOPER History: other (See HPI) Family/Genetic History: other (See HPI) Social history: other (See HPI) - Obstetrical History Expected Date of Delivery: 03/06/21 Actual Gestation: 37 Week(s) 0 Day(s) : 11 Para: 5 Hx # Term Pregnancies: 4 Number of Pregnancies: 1 Spontaneous Abortions: 2 Induced : 3 Number of Living Children: 6 Medications and Allergies Allergies Allergy/AdvReac Type Severity Reaction Status Date / Time Penicillins Allergy Shortness Verified 11/08/18 11:27 of Breath latex AdvReac Severe Swelling Verified 11/06/20 11:58 natali AdvReac Anaphylaxis Verified 02/13/21 09:39 Home Medications Medication Instructions Recorded Confirmed Last Taken Type Insulin NPH Human Isophane 30 units SQ DAILY 06/22/17 02/13/21 02/12/21 History [Novolin N] Insulin NPH Human Isophane 74 units SQ QAM 06/22/17 02/13/21 02/12/21 History [Novolin N] Insulin Regular, Human Inj 36 units SQ QPM 06/22/17 02/13/21 02/12/21 History [NovoLIN R Inj] Insulin Regular, Human Inj 44 units SQ QAM 06/22/17 02/13/21 02/12/21 History [NovoLIN R Inj] Pnv,Calcium 72/Iron/Folic Acid 1 each PO DAILY #90 tablet 11/08/18 02/13/21 02/13/21 Rx [Preplus Ca-Fe 27 mg-FA 1 mg Tb] valACYclovir [Valtrex] 500 mg PO BID 02/13/21 02/13/21 02/13/21 History Active Meds: Active Medications Acetaminophen (Acetaminophen 325 Mg Tab) 650 mg PO Q4H PRN PRN Reason: Pain, Mild (1-3) Butorphanol Tartrate (Butorphanol 2 Mg/1 Ml Inj) 1 mg IV Q2H PRN PRN Reason: Pain, Moderate(4-6) LABOR PAIN Butorphanol Tartrate (Butorphanol 2 Mg/1 Ml Inj) 2 mg IV Q2H PRN PRN Reason: Pain , Severe (7-10) Carboprost Tromethamine (Carboprost Tromethamine 250 Mcg/1 Ml Inj) 250 mcg IM ONCE PRN PRN Reason: Uterine Bleeding Dextrose (Dextrose 50% In Water (25gm) 50 Ml Syringe) 50 ml IV Q30MIN PRN; Protocol PRN Reason: Hypoglycemia Ephedrine Sulfate (Ephedrine Sulfate 50 Mg/1 Ml Inj) 10 mg IV Q2M PRN PRN Reason: Hypotension Fentanyl (Fentanyl 100 Mcg/2 Ml Inj) 100 mcg IV Q2H PRN PRN Reason: Pain,Severe (7-10) LABOR PAIN Oxytocin/Sodium Chloride (Pitocin/Ns 30 Unit/500ml) 30 units in 500 mls @ 4 mls/hr IV TITR DANIELITO; Protocol Lactated Ringer's (Lactated Ringers) 1,000 mls @ 125 mls/hr IV DIRECT DANIELITO Oxytocin/Sodium Chloride (Pitocin/Ns 30 Unit/500ml) 30 units in 500 mls @ 40 mls/hr IV TITR DANIELITO; Protocol Insulin Human Regular (Insulin Regular, Human 100 Units/1 Ml) 0 units SUB-Q Q4H DANIELITO; Protocol Lidocaine (Lidocaine (2%) 20 Mg/1 Ml Vial 20 Ml Mdv) 20 ml INFILTRATI ONCE ONE Stop: 02/13/21 09:19 Loperamide HCl (Loperamide 2 Mg Cap) 2 mg PO ONCE PRN PRN Reason: give with Hemabate Methylergonovine Maleate (Methylergonovine Maleate 0.2 Mg/Ml Vial) 0.2 mg IM ONCE PRN PRN Reason: Uterine Bleeding Mineral Oil (Mineral Oil 30 Ml Oral Liqd) 30 ml PO QHS PRN PRN Reason: Constipation Misoprostol (Misoprostol 200 Mcg Tab) 800 mcg AR ONCE PRN PRN Reason: Uterine Bleeding Oxytocin (Oxytocin 10 Unit/1 Ml Inj) 10 unit IM ONCE PRN PRN Reason: Uterine Bleeding Terbutaline Sulfate (Terbutaline 1 Mg/1 Ml Inj) 0.25 mg SUB-Q ONCE PRN PRN Reason: Hyperstimulation/Hypertonicity Review of Systems All systems: negative - Physical Exam Breasts: Positive: normal Cardiovascular: Regular rate Lungs: Positive: Normal air movement Abdomen: Positive: normal appearance, soft Genitourinary (Female): Positive: normal external genitalia, normal perenium Vulva: both: normal Vagina: Positive: normal moisture Uterus: Positive: normal size - Obstetrical FHR: category 1 Uterine Contraction Monitor Mode: External Results Result Diagrams: 02/13/21 11:11 All other labs normal. Assessment and Plan 40y/o admitted for IOL per [facility]'s recommendation d/t DM on insulin. GBS negative. Admission orders in EMR. - Patient Problems (1) 37 weeks gestation of Current Visit: No Status: Acute (2) Diabetes mellitus with insulin therapy Current Visit: No Status: Acute Plan to address problem: q4hr accuchecks Sliding scale insulin (3) Elderly multigravida in third trimester Current Visit: No Status: Acute (4) HSV (herpes simplex virus) infection Current Visit: No Status: Acute Plan to address problem: no lesions present no s/s prodrome
[2021-02-13] MEDS ORDERED: OXYTOCIN DRIP 30 UNITS/500 ML BAG IV SCH ×2 (10:00)
[2021-02-13] MEDS ORDERED: INSULIN REGULAR, HUMAN 100 UNITS/1 ML SUB-Q SCH (10:00)
[2021-02-13] MEDS ORDERED: LIDOCAINE (2%) 20 MG/1 ML VIAL 20 ML MDV INFILTRATI ONE (10:18)
[2021-02-13 11:36] LABS: Hematocrit 32.3 % (30.3-42.9); Hemoglobin 10.3 gm/dl (10.1-14.3); Mean Corpuscular HGB Conc 32 % (30-34); Mean Corpuscular Volume 71 fl (79-97); Platelet Count 262 K/mm3 (140-440); Red Blood Count 4.56 M/mm3 (3.65-5.03); Red Cell Distribution Width 17.8 % (13.2-15.2)
--- NOTE | 2021-02-13 13:07 | Progress Note ---
Assessment and Plan 40 yo pt at 37.0 wks admitted for IOL as recommended by MFM. Pt resting in bed, no complaints. SVE performed . Discussed options w/ pt, discussed Risk/Benefits of cooks balloon for further ripening and pt verbalized understanding and consent. Cooks balloon placed, 60 ml in Uterine and Vaginal balloons. Pt tolerated well. Pit infusion ordered to start at 2mu/ml and to titrate per protocol. Dorita AZEVEDOM - Patient Problems (1) 37 weeks gestation of Current Visit: No Status: Acute (2) Diabetes mellitus with insulin therapy Current Visit: No Status: Acute Subjective - Subjective Date of service: 02/13/21 Principal diagnosis: IUP @ 37.0 Interval history: EDC Confirmation: 03/06/2021 Past History : 11 Term Births: 4 Premature Births: 2 Living Children: 6 Para: 5 Mult. Births: 1 Prev : 0 Prev. attempt? 0 Aborta: 3 Elect. Ab: 3 Spont. Ab: 2 Ectopics: 0 # 1 Delivery date: 1994 Weeks Gestation: 42 labor: no Delivery type: Delivery location: [place] Sex: Female weight: 7#14 Comments: no complications # 2 Delivery date: 1998 Weeks Gestation: 16w labor: yes Delivery type: D&E Hours of labor: "not long at all" Anesthesia type: none Delivery location: [place] Comments: quadruplets - was told "something was wrong with them and would need lifelong care". States that the fetsus were deformed. # 3 Delivery date: 2000 Weeks Gestation: 27 Delivery type: Delivery location: [place] Sex: male/female weight: 6#/4# Comments: Twins, confirmed: 27weeks, twin to twin transfusion, induced - born vaginally. # 4 Delivery date: 1999 Weeks Gestation: 40 labor: no Delivery type: Delivery location: [place] Sex: Female weight: 7#14 Comments: no complications # 5 Delivery date: 2005 Weeks Gestation: 40 labor: no Delivery type: Delivery location: [place] Sex: Male weight: 6#13 Comments: no complications # 6 Delivery date: 07/06/2017 Weeks Gestation: 37 Delivery type: Vaginal Anesthesia type: epidural Delivery location: [facility] Sex: male weight: 9.25 Comments: gestational diabetes: insulin dependent; AMA; LGA # 7 Delivery date: 09/1999 Delivery type: EAB Comments: Unsure if D&C performed. # 8 Delivery date: 05/2003 Delivery type: EAB Comments: Unsure if D&C was performed. No complications. # 9 Delivery date: 02/19 Weeks Gestation: 12 weeks Delivery type: SAB Comments: No D&C, or meds needed, no complications # 10 Delivery date: 11/2019 Weeks Gestation: 9 wks Delivery type: SAB Comments: No D&C or meds needed. 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 f/u pap 2015 NL diabetes hsv2 Past Surgical History: Reviewed history from 11/18/2018 and no changes required: negative Past Medical History Anesthesia Complications: negative Anemia: negative Autoimmune Disorder: negative Bleeding Disorder: negative Blood Transfusions: negative Breast Disease: negative Diabetes: negative Heart Disease: negative Hypertension: negative Hepatitis/Liver Disease: negative Kidney Disease/UTI: negative Neurologic/Epilepsy/Migraines: negative Phlebitis/Varicosities: negative Psychiatric: negative Pulmonary Disease/Asthma: positive, Asthma Thyroid Disease: negative Hospitalizations: negative Surgery (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 of genital herpes: yes Partner hx. of genital herpes: no Rash, Viral, or Febrile illness since last LMP? no Varicella/Chicken Pox Status: Previous Disease TB Risk: no Genetic History ADVANCED MATERNAL AGE Congenital Heart Defect: Mom: no Dad: no Alanis Disease: Mom: no Dad: no Thalassemia Mom: no Dad: no Neural Tube Defect Mom: no Dad: no Down's Syndrome Mom: no Dad: no Arnulfo-Sachs Mom: no Dad: no Sickle Cell Disease/Trait Mom: no Dad: no Hemophilia Mom: no Dad: no Muscular Dystrophy Mom: no Dad: no Cystic Fibrosis Mom: no Dad: no Reed Chorea Mom: no Dad: no Mental Retardation Mom: no Dad: no Fragile X Mom: no Dad: no Other Genetic/Chromosomal Disorder Mom: no Dad: no Child w/other defect Mom: no Dad: no Enviromental Exposures Xray Exposure: no Medication, drug, or alcohol use since LMP: no Chemical/Other Exposure: no Exposure to Cat Liter: no Hx of Parvovirus (Fifth Disease): no Occupational Exposure to Children: none Active Medications (reviewed today): TERCONAZOLE 0.8 % VAGINAL CREAM (TERCONAZOLE) 1 applicatorful intavaginally qhs x3days METFORMIN HCL 500 MG ORAL TABLET (METFORMIN HCL) Current Allergies (reviewed today): * LATEX (Critical) Patient reports: movement normal Objective - Vital Signs Vital Signs: Vital Signs - 12hr 02/13/21 02/13/21 02/13/21 09:37 09:42 09:43 Temperature 98.2 F Pulse Rate 99 H 96 H Respiratory 20 Rate Blood Pressure O2 Sat by Pulse 99 99 98 Oximetry 02/13/21 02/13/21 02/13/21 09:44 09:47 09:52 Temperature Pulse Rate 93 H 99 H 101 H Respiratory Rate Blood Pressure 131/61 O2 Sat by Pulse 98 98 Oximetry 02/13/21 02/13/21 02/13/21 09:57 10:02 10:07 Temperature Pulse Rate 98 H 98 H 100 H Respiratory Rate Blood Pressure O2 Sat by Pulse 99 98 98 Oximetry 02/13/21 02/13/21 02/13/21 10:12 10:17 10:22 Temperature Pulse Rate 91 H 96 H 102 H Respiratory Rate Blood Pressure O2 Sat by Pulse 98 97 96 Oximetry 02/13/21 02/13/21 02/13/21 10:27 10:32 10:37 Temperature Pulse Rate 99 H 105 H 101 H Respiratory Rate Blood Pressure O2 Sat by Pulse 98 98 98 Oximetry 02/13/21 02/13/21 02/13/21 10:42 10:52 10:57 Temperature Pulse Rate 100 H 101 H 107 H Respiratory Rate Blood Pressure O2 Sat by Pulse 97 99 99 Oximetry 02/13/21 02/13/21 02/13/21 11:02 11:07 11:12 Temperature Pulse Rate 110 H 103 H 98 H Respiratory Rate Blood Pressure 117/64 O2 Sat by Pulse 99 98 99 Oximetry 02/13/21 02/13/21 02/13/21 11:17 11:22 11:27 Temperature Pulse Rate 93 H 106 H 104 H Respiratory Rate Blood Pressure O2 Sat by Pulse 99 99 98 Oximetry 02/13/21 02/13/21 02/13/21 11:32 11:37 11:47 Temperature Pulse Rate 104 H 100 H 114 H Respiratory Rate Blood Pressure O2 Sat by Pulse 99 99 98 Oximetry 02/13/21 02/13/21 02/13/21 11:52 11:57 12:02 Temperature Pulse Rate 109 H 104 H 99 H Respiratory Rate Blood Pressure O2 Sat by Pulse 99 98 98 Oximetry 02/13/21 02/13/21 02/13/21 12:07 12:12 12:17 Temperature Pulse Rate 102 H 101 H 103 H Respiratory Rate Blood Pressure O2 Sat by Pulse 99 97 99 Oximetry 02/13/21 02/13/21 02/13/21 12:22 12:27 12:30 Temperature Pulse Rate 96 H 97 H 97 H Respiratory Rate Blood Pressure 125/58 O2 Sat by Pulse 98 98 Oximetry 02/13/21 02/13/21 02/13/21 12:34 12:39 12:44 Temperature Pulse Rate 94 H 103 H 94 H Respiratory Rate Blood Pressure O2 Sat by Pulse 99 99 100 Oximetry 02/13/21 02/13/21 02/13/21 12:49 12:54 12:55 Temperature Pulse Rate 103 H 102 H 103 H Respiratory Rate Blood Pressure O2 Sat by Pulse 99 92 90 Oximetry 02/13/21 12:59 Temperature Pulse Rate 100 H Respiratory Rate Blood Pressure O2 Sat by Pulse 100 Oximetry - Exam Cardiovascular: Regular rate Lungs: Normal air movement Abdomen: Present: normal appearance, soft Vulva: both: normal Uterus: Present: normal FHR: auscultation normal, category 1 Uterine Contraction Monitor Mode: External Cervical Dilatation: 2 Cervical Effacement Percentage: 30 station: -3 Uterine Contraction Pattern: Irregular Uterine Tone Measurement Phase: Resting Uterine Contraction Intensity: Mild - Labs Labs: Abnormal Labs 02/13/21 02/13/21 11:11 11:29 MCV 71 L MCH 23 L RDW 17.8 H POC Glucose 122 H Laboratory Results - last 24 hr 02/13/21 02/13/21 02/13/21 11:11 11:11 11:29 WBC 6.5 RBC 4.56 Hgb 10.3 Hct 32.3 MCV 71 L MCH 23 L MCHC 32 RDW 17.8 H Plt Count 262 POC Glucose 122 H Syphilis IgG Antibody Nonreactive
[2021-02-13] MEDS: LACTATED RINGERS 1,000 ML IV SCH ×2 (15:49→22:17)
--- NOTE | 2021-02-13 16:46 | Progress Note ---
Assessment and Plan kinga ortiz fell out of cervix, SVE 5.5/50/-2. Pt is having regular ctx that she feels in her back and desires epidural. IVF open for bolus. Anticipate - Patient Problems (1) 37 weeks gestation of Current Visit: No Status: Acute (2) Diabetes mellitus with insulin therapy Current Visit: No Status: Acute (3) Elderly multigravida in third trimester Current Visit: No Status: Acute (4) HSV (herpes simplex virus) infection Current Visit: No Status: Acute Subjective - Subjective Date of service: 02/13/21 Principal diagnosis: IUP @ 37.0 Interval history: EDC Confirmation: 03/06/2021 Past History : 11 Term Births: 4 Premature Births: 2 Living Children: 6 Para: 5 Mult. Births: 1 Prev : 0 Prev. attempt? 0 Aborta: 3 Elect. Ab: 3 Spont. Ab: 2 Ectopics: 0 # 1 Delivery date: 1994 Weeks Gestation: 42 labor: no Delivery type: Delivery location: [facility] Sex: Female weight: 7#14 Comments: no complications # 2 Delivery date: 1998 Weeks Gestation: 16w labor: yes Delivery type: D&E Hours of labor: "not long at all" Anesthesia type: none Delivery location: [facility] Comments: quadruplets - was told "something was wrong with them and would need lifelong care". States that the fetsus were deformed. # 3 Delivery date: 2000 Weeks Gestation: 27 Delivery type: Delivery location: [place] [facility] Sex: male/female weight: 6#/4# Comments: Twins, confirmed: 27weeks, twin to twin transfusion, induced - born vaginally. # 4 Delivery date: 1999 Weeks Gestation: 40 labor: no Delivery type: Delivery location: [facility] Sex: Female weight: 7#14 Comments: no complications # 5 Delivery date: 2005 Weeks Gestation: 40 labor: no Delivery type: Delivery location: [facility] Sex: Male weight: 6#13 Comments: no complications # 6 Delivery date: 07/06/2017 Weeks Gestation: 37 Delivery type: Vaginal Anesthesia type: epidural Delivery location: [facility] Sex: male weight: 9.25 Comments: gestational diabetes: insulin dependent; AMA; LGA # 7 Delivery date: 09/1999 Delivery type: EAB Comments: Unsure if D&C performed. # 8 Delivery date: 05/2003 Delivery type: EAB Comments: Unsure if D&C was performed. No complications. # 9 Delivery date: 02/19 Weeks Gestation: 12 weeks Delivery type: SAB Comments: No D&C, or meds needed, no complications # 10 Delivery date: 11/2019 Weeks Gestation: 9 wks Delivery type: SAB Comments: No D&C or meds needed. 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 f/u pap 2015 NL diabetes hsv2 Past Surgical History: Reviewed history from 11/18/2018 and no changes required: negative Past Medical History Anesthesia Complications: negative Anemia: negative Autoimmune Disorder: negative Bleeding Disorder: negative Blood Transfusions: negative Breast Disease: negative Diabetes: negative Heart Disease: negative Hypertension: negative Hepatitis/Liver Disease: negative Kidney Disease/UTI: negative Neurologic/Epilepsy/Migraines: negative Phlebitis/Varicosities: negative Psychiatric: negative Pulmonary Disease/Asthma: positive, Asthma Thyroid Disease: negative Hospitalizations: negative Surgery (Non-dispute resolution analyst): 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 of genital herpes: yes Partner hx. of genital herpes: no Rash, Viral, or Febrile illness since last LMP? no Varicella/Chicken Pox Status: Previous Disease TB Risk: no Genetic History ADVANCED MATERNAL AGE Congenital Heart Defect: Mom: no Dad: no Alanis Disease: Mom: no Dad: no Thalassemia Mom: no Dad: no Neural Tube Defect Mom: no Dad: no Down's Syndrome Mom: no Dad: no Arnulfo-Sachs Mom: no Dad: no Sickle Cell Disease/Trait Mom: no Dad: no Hemophilia Mom: no Dad: no Muscular Dystrophy Mom: no Dad: no Cystic Fibrosis Mom: no Dad: no Reed Chorea Mom: no Dad: no Mental Retardation Mom: no Dad: no Fragile X Mom: no Dad: no Other Genetic/Chromosomal Disorder Mom: no Dad: no Child w/other defect Mom: no Dad: no Enviromental Exposures Xray Exposure: no Medication, drug, or alcohol use since LMP: no Chemical/Other Exposure: no Exposure to Cat Liter: no Hx of Parvovirus (Fifth Disease): no Occupational Exposure to Children: none Active Medications (reviewed today): TERCONAZOLE 0.8 % VAGINAL CREAM (TERCONAZOLE) 1 applicatorful intavaginally qhs x3days METFORMIN HCL 500 MG ORAL TABLET (METFORMIN HCL) Current Allergies (reviewed today): * LATEX (Critical) Patient reports: new complaints (lower back pain) Objective - Vital Signs Vital Signs: Vital Signs - 12hr 02/13/21 02/13/21 02/13/21 09:37 09:42 09:43 Temperature 98.2 F Pulse Rate 99 H 96 H Respiratory 20 Rate Blood Pressure O2 Sat by Pulse 99 99 98 Oximetry O2 Sat by Pulse Oximetry [ Posterior Bilateral Upper Lobe] 02/13/21 02/13/21 02/13/21 09:44 09:47 09:52 Temperature Pulse Rate 93 H 99 H 101 H Respiratory Rate Blood Pressure 131/61 O2 Sat by Pulse 98 98 Oximetry O2 Sat by Pulse Oximetry [ Posterior Bilateral Upper Lobe] 02/13/21 02/13/21 02/13/21 09:57 10:02 10:07 Temperature Pulse Rate 98 H 98 H 100 H Respiratory Rate Blood Pressure O2 Sat by Pulse 99 98 98 Oximetry O2 Sat by Pulse Oximetry [ Posterior Bilateral Upper Lobe] 02/13/21 02/13/21 02/13/21 10:12 10:17 10:22 Temperature Pulse Rate 91 H 96 H 102 H Respiratory Rate Blood Pressure O2 Sat by Pulse 98 97 96 Oximetry O2 Sat by Pulse Oximetry [ Posterior Bilateral Upper Lobe] 02/13/21 02/13/21 02/13/21 10:27 10:32 10:37 Temperature Pulse Rate 99 H 105 H 101 H Respiratory Rate Blood Pressure O2 Sat by Pulse 98 98 98 Oximetry O2 Sat by Pulse Oximetry [ Posterior Bilateral Upper Lobe] 02/13/21 02/13/21 02/13/21 10:42 10:52 10:57 Temperature Pulse Rate 100 H 101 H 107 H Respiratory Rate Blood Pressure O2 Sat by Pulse 97 99 99 Oximetry O2 Sat by Pulse Oximetry [ Posterior Bilateral Upper Lobe] 02/13/21 02/13/21 02/13/21 11:02 11:07 11:12 Temperature Pulse Rate 110 H 103 H 98 H Respiratory Rate Blood Pressure 117/64 O2 Sat by Pulse 99 98 99 Oximetry O2 Sat by Pulse Oximetry [ Posterior Bilateral Upper Lobe] 02/13/21 02/13/21 02/13/21 11:17 11:20 11:22 Temperature Pulse Rate 93 H 106 H Respiratory Rate Blood Pressure O2 Sat by Pulse 99 99 Oximetry O2 Sat by Pulse 98 Oximetry [ Posterior Bilateral Upper Lobe] 02/13/21 02/13/21 02/13/21 11:27 11:32 11:37 Temperature Pulse Rate 104 H 104 H 100 H Respiratory Rate Blood Pressure O2 Sat by Pulse 98 99 99 Oximetry O2 Sat by Pulse Oximetry [ Posterior Bilateral Upper Lobe] 02/13/21 02/13/21 02/13/21 11:47 11:52 11:57 Temperature Pulse Rate 114 H 109 H 104 H Respiratory Rate Blood Pressure O2 Sat by Pulse 98 99 98 Oximetry O2 Sat by Pulse Oximetry [ Posterior Bilateral Upper Lobe] 02/13/21 02/13/21 02/13/21 12:02 12:07 12:12 Temperature Pulse Rate 99 H 102 H 101 H Respiratory Rate Blood Pressure O2 Sat by Pulse 98 99 97 Oximetry O2 Sat by Pulse Oximetry [ Posterior Bilateral Upper Lobe] 02/13/21 02/13/21 02/13/21 12:17 12:22 12:27 Temperature Pulse Rate 103 H 96 H 97 H Respiratory Rate Blood Pressure O2 Sat by Pulse 99 98 98 Oximetry O2 Sat by Pulse Oximetry [ Posterior Bilateral Upper Lobe] 02/13/21 02/13/21 02/13/21 12:30 12:34 12:39 Temperature Pulse Rate 97 H 94 H 103 H Respiratory Rate Blood Pressure 125/58 O2 Sat by Pulse 99 99 Oximetry O2 Sat by Pulse Oximetry [ Posterior Bilateral Upper Lobe] 02/13/21 02/13/21 02/13/21 12:44 12:49 12:54 Temperature Pulse Rate 94 H 103 H 102 H Respiratory Rate Blood Pressure O2 Sat by Pulse 100 99 92 Oximetry O2 Sat by Pulse Oximetry [ Posterior Bilateral Upper Lobe] 02/13/21 02/13/21 02/13/21 12:55 12:59 13:04 Temperature Pulse Rate 103 H 100 H 102 H Respiratory Rate Blood Pressure O2 Sat by Pulse 90 100 99 Oximetry O2 Sat by Pulse Oximetry [ Posterior Bilateral Upper Lobe] 02/13/21 02/13/21 02/13/21 13:09 13:12 13:14 Temperature Pulse Rate 99 H 94 H 101 H Respiratory Rate Blood Pressure 121/57 O2 Sat by Pulse 100 99 Oximetry O2 Sat by Pulse Oximetry [ Posterior Bilateral Upper Lobe] 02/13/21 02/13/21 02/13/21 13:19 13:24 13:29 Temperature Pulse Rate 98 H 97 H 102 H Respiratory Rate Blood Pressure O2 Sat by Pulse 99 99 100 Oximetry O2 Sat by Pulse Oximetry [ Posterior Bilateral Upper Lobe] 02/13/21 02/13/21 02/13/21 13:34 13:39 13:44 Temperature Pulse Rate 96 H 102 H 99 H Respiratory Rate Blood Pressure O2 Sat by Pulse 99 99 99 Oximetry O2 Sat by Pulse Oximetry [ Posterior Bilateral Upper Lobe] 02/13/21 02/13/21 02/13/21 13:49 13:54 13:59 Temperature Pulse Rate 100 H 104 H 97 H Respiratory Rate Blood Pressure O2 Sat by Pulse 99 100 99 Oximetry O2 Sat by Pulse Oximetry [ Posterior Bilateral Upper Lobe] 02/13/21 02/13/21 02/13/21 14:04 14:09 14:14 Temperature Pulse Rate 101 H 104 H 106 H Respiratory Rate Blood Pressure O2 Sat by Pulse 99 99 98 Oximetry O2 Sat by Pulse Oximetry [ Posterior Bilateral Upper Lobe] 02/13/21 02/13/21 02/13/21 14:19 14:24 14:29 Temperature Pulse Rate 102 H 98 H 94 H Respiratory Rate Blood Pressure O2 Sat by Pulse 98 98 99 Oximetry O2 Sat by Pulse Oximetry [ Posterior Bilateral Upper Lobe] 02/13/21 02/13/21 02/13/21 14:34 14:39 14:44 Temperature Pulse Rate 105 H 107 H 101 H Respiratory Rate Blood Pressure O2 Sat by Pulse 99 99 99 Oximetry O2 Sat by Pulse Oximetry [ Posterior Bilateral Upper Lobe] 02/13/21 02/13/21 02/13/21 14:49 14:54 14:59 Temperature Pulse Rate 107 H 104 H 103 H Respiratory Rate Blood Pressure O2 Sat by Pulse 99 98 98 Oximetry O2 Sat by Pulse Oximetry [ Posterior Bilateral Upper Lobe] 02/13/21 02/13/21 02/13/21 15:19 15:24 15:29 Temperature Pulse Rate 108 H 107 H 102 H Respiratory Rate Blood Pressure O2 Sat by Pulse 99 100 99 Oximetry O2 Sat by Pulse Oximetry [ Posterior Bilateral Upper Lobe] 02/13/21 02/13/21 02/13/21 15:34 15:39 15:44 Temperature Pulse Rate 101 H 100 H 99 H Respiratory Rate Blood Pressure O2 Sat by Pulse 99 98 100 Oximetry O2 Sat by Pulse Oximetry [ Posterior Bilateral Upper Lobe] 02/13/21 02/13/21 02/13/21 15:48 15:49 15:54 Temperature Pulse Rate 98 H 100 H 99 H Respiratory Rate Blood Pressure 121/58 O2 Sat by Pulse 100 99 Oximetry O2 Sat by Pulse Oximetry [ Posterior Bilateral Upper Lobe] 02/13/21 02/13/21 02/13/21 15:57 15:59 16:02 Temperature Pulse Rate 92 H 104 H 95 H Respiratory Rate Blood Pressure 129/61 130/62 O2 Sat by Pulse 99 Oximetry O2 Sat by Pulse Oximetry [ Posterior Bilateral Upper Lobe] 02/13/21 02/13/21 02/13/21 16:04 16:07 16:09 Temperature Pulse Rate 96 H 92 H 93 H Respiratory Rate Blood Pressure 129/62 O2 Sat by Pulse 99 100 Oximetry O2 Sat by Pulse Oximetry [ Posterior Bilateral Upper Lobe] 02/13/21 02/13/21 02/13/21 16:14 16:19 16:23 Temperature Pulse Rate 96 H 89 86 Respiratory Rate Blood Pressure 121/57 O2 Sat by Pulse 99 100 Oximetry O2 Sat by Pulse Oximetry [ Posterior Bilateral Upper Lobe] 02/13/21 02/13/21 02/13/21 16:24 16:29 16:34 Temperature Pulse Rate 87 94 H 91 H Respiratory Rate Blood Pressure O2 Sat by Pulse 98 98 99 Oximetry O2 Sat by Pulse Oximetry [ Posterior Bilateral Upper Lobe] 02/13/21 16:39 Temperature Pulse Rate 90 Respiratory Rate Blood Pressure O2 Sat by Pulse 99 Oximetry O2 Sat by Pulse Oximetry [ Posterior Bilateral Upper Lobe] - Exam Lungs: Normal air movement Abdomen: Present: normal appearance, soft Vulva: both: normal Uterus: Present: normal FHR: category 1 Uterine Contraction Monitor Mode: External Cervical Dilatation: 5.5 Cervical Effacement Percentage: 50 station: -2 - Labs Labs: Abnormal Labs 02/13/21 02/13/21 02/13/21 11:11 11:29 14:38 MCV 71 L MCH 23 L RDW 17.8 H POC Glucose 122 H 135 H Laboratory Results - last 24 hr 02/13/21 02/13/21 02/13/21 09:15 11:11 11:11 WBC 6.5 RBC 4.56 Hgb 10.3 Hct 32.3 MCV 71 L MCH 23 L MCHC 32 RDW 17.8 H Plt Count 262 POC Glucose Syphilis IgG Antibody Nonreactive Coronavirus (PCR) Negative 02/13/21 02/13/21 11:29 14:38 WBC RBC Hgb Hct MCV MCH MCHC RDW Plt Count POC Glucose 122 H 135 H Syphilis IgG Antibody Coronavirus (PCR)
[2021-02-13] MEDS ORDERED: diphenhydrAMINE 50 MG/ML VIAL IV PRN (19:37)
[2021-02-13] MEDS ORDERED: ONDANSETRON 4 MG/2 ML INJ IV PRN (19:37)
[2021-02-13] MEDS ORDERED: NALOXONE 2 MG/2 ML INJ IV PRN (19:37)
[2021-02-13] MEDS ORDERED: NalbUPHINE 10 MG/1 ML INJ IV PRN (19:37)
[2021-02-13] MEDS ORDERED: ePHEDrine SULFATE 50 MG/1 ML INJ IV PRN (19:37)
[2021-02-13] MEDS ORDERED: LACTATED RINGERS 250 ML IV SOLN IV ONE (19:37)
[2021-02-13] MEDS ORDERED: fentaNYL-BUPIV 2 MCG/ML-0.125% 200 MCG/100 ML BAG EPIDURAL SCH (20:00)
--- NOTE | 2021-02-13 20:12 | Anesthesia Consultation ---
Anesthesia Consult and Med Hx Date of service: 02/13/21 - Airway Anesthetic Teeth Evaluation: Good ROM Head & Neck: Adequate Mental/Hyoid Distance: Adequate Mallampati Class: Class III Intubation Access Assessment: Possibly Difficult - Pulmonary Exam CTA: Yes - Cardiac Exam Cardiac Exam: RRR - Pre-Operative Health Status ASA Pre-Surgery Classification: ASA2 Proposed Anesthetic Plan: Epidural - Pulmonary Hx Smoking: No Hx Asthma: Yes (no meds) COPD: No Hx Pneumonia: No Hx Sleep Apnea: No - Cardiovascular System Hx Hypertension: No Hx Heart Attack/AMI: No Hx Angina: No - Central Nervous System Hx Seizures: No Hx Psychiatric Problems: Yes (pp-depression no meds) - Gastrointestinal Hx Gastroesophageal Reflux Disease: No - Endocrine Hx Renal Disease: No Hx End Stage Renal Disease: No Hx Liver Disease: No Hx Insulin Dependent Diabetes: No Hx Non-Insulin Dependent Diabetes: Yes Hx Hypothyroidism: No Hx Hyperthyroidism: No - Hematic Hx Anemia: Yes (past hx- with meds) Hx Sickle Cell Disease: No - Other Systems Hx Alcohol Use: No Hx Obesity: Yes (BMI 41.6)
--- NOTE | 2021-02-13 20:13 | Progress Note ---
Labor Epidural - Labor Epidural Start Time: 19:57 Stop Time: 20:03 Performed by:: ROMÁN FORTE Procedure: Patient is requesting epidural for labor and pain. H&P, labs were reviewed. Patient IDed, H&P reviewed, all questions and concerns were answered, and consent was signed. Timeout was performed at bedside. Patient in sitting position. Sterile prep and drape was performed. 3ml of 1% lidocaine skin wheal at L[3]- L [4]. 18-gauge Tuohy epidural needle was advanced to loss of resistance with air technique 8cm. Negative CSF negative blood. Epidural catheter advanced to [13] centimeters. [negative] Aspiration [negative] test dose. Sterile dressing applied. Patient tolerated procedure.
[2021-02-13] MEDS: ePHEDrine SULFATE 50 MG/1 ML INJ IV PRN ×2 (20:46→22:14)
--- NOTE | 2021-02-13 21:40 | Progress Note ---
Assessment and Plan Pt comfortable and resting S/P epidural. Pit titrating per protocol and currently on 8mu/min. FHT difficult to trace w/ external monitor, SVE performed, /-2, and FSE placed w/out difficulty. Pt repositioned to left lateral position, POC discussed w/ RN and pt and will titrate pit by 4mu/min to 12mu/min at next titration. All questions addressed. - Patient Problems (1) 37 weeks gestation of Current Visit: No Status: Acute (2) Diabetes mellitus with insulin therapy Current Visit: No Status: Acute (3) Elderly multigravida in third trimester Current Visit: No Status: Acute (4) HSV (herpes simplex virus) infection Current Visit: No Status: Acute Subjective - Subjective Date of service: 02/13/21 Principal diagnosis: IUP @ 37.0 Interval history: EDC Confirmation: 03/06/2021 Past History : 11 Term Births: 4 Premature Births: 2 Living Children: 6 Para: 5 Mult. Births: 1 Prev : 0 Prev. attempt? 0 Aborta: 3 Elect. Ab: 3 Spont. Ab: 2 Ectopics: 0 # 1 Delivery date: 1994 Weeks Gestation: 42 labor: no Delivery type: Delivery location: [facility] Sex: Female weight: 7#14 Comments: no complications # 2 Delivery date: 1998 Weeks Gestation: 16w labor: yes Delivery type: D&E Hours of labor: "not long at all" Anesthesia type: none Delivery location: [facility] Comments: quadruplets - was told "something was wrong with them and would need lifelong care". States that the fetsus were deformed. # 3 Delivery date: 2000 Weeks Gestation: 27 Delivery type: Delivery location: [facility] Sex: male/female weight: 6#/4# Comments: Twins, confirmed: 27weeks, twin to twin transfusion, induced - born vaginally. # 4 Delivery date: 1999 Weeks Gestation: 40 labor: no Delivery type: Delivery location: [facility] Sex: Female weight: 7#14 Comments: no complications # 5 Delivery date: 2005 Weeks Gestation: 40 labor: no Delivery type: Delivery location: [facility] Sex: Male weight: 6#13 Comments: no complications # 6 Delivery date: 07/06/2017 Weeks Gestation: 37 Delivery type: Vaginal Anesthesia type: epidural Delivery location: [facility] Sex: male weight: 9.25 Comments: gestational diabetes: insulin dependent; AMA; LGA # 7 Delivery date: 09/1999 Delivery type: EAB Comments: Unsure if D&C performed. # 8 Delivery date: 05/2003 Delivery type: EAB Comments: Unsure if D&C was performed. No complications. # 9 Delivery date: 02/19 Weeks Gestation: 12 weeks Delivery type: SAB Comments: No D&C, or meds needed, no complications # 10 Delivery date: 11/2019 Weeks Gestation: 9 wks Delivery type: SAB Comments: No D&C or meds needed. No complications Risk Factors: Smoked Tobacco Use: Never smoker Smokeless Tobacco Use: Never Passive smoke exposure: no Drug use: no HIV high-risk behavior: no Caffeine use: <1 drinks per day Alcohol use: yes Type: occ Exercise: yes Times per week: 3 Type of Exercise: walking Seatbelt use: preg-intake counselor % Sun Exposure: rarely Dietary Counseling: pn yes PAP Smear History: Date of Last PAP Smear: 06/03/2020 Results: Unknown (per pt) Previous Alcohol Use: Signed On - 11/18/2018 Alcohol use: no Exercise: no Seatbelt use: 100 % Past Medical History: Reviewed history from 11/18/2018 and no changes required: Abnormal Pap Smear - abnormal cells 2014, no colpo or bx. f/u pap 2015 NL diabetes hsv2 Past Surgical History: Reviewed history from 11/18/2018 and no changes required: negative Past Medical History Anesthesia Complications: negative Anemia: negative Autoimmune Disorder: negative Bleeding Disorder: negative Blood Transfusions: negative Breast Disease: negative Diabetes: negative Heart Disease: negative Hypertension: negative Hepatitis/Liver Disease: negative Kidney Disease/UTI: negative Neurologic/Epilepsy/Migraines: negative Phlebitis/Varicosities: negative Psychiatric: negative Pulmonary Disease/Asthma: positive, Asthma Thyroid Disease: negative Hospitalizations: negative Surgery (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 of genital herpes: yes Partner hx. of genital herpes: no Rash, Viral, or Febrile illness since last LMP? no Varicella/Chicken Pox Status: Previous Disease TB Risk: no Genetic History ADVANCED MATERNAL AGE Congenital Heart Defect: Mom: no Dad: no Alanis Disease: Mom: no Dad: no Thalassemia Mom: no Dad: no Neural Tube Defect Mom: no Dad: no Down's Syndrome Mom: no Dad: no Arnulfo-Sachs Mom: no Dad: no Sickle Cell Disease/Trait Mom: no Dad: no Hemophilia Mom: no Dad: no Muscular Dystrophy Mom: no Dad: no Cystic Fibrosis Mom: no Dad: no [place] Chorea Mom: no Dad: no Mental Retardation Mom: no Dad: no Fragile X Mom: no Dad: no Other Genetic/Chromosomal Disorder Mom: no Dad: no Child w/other defect Mom: no Dad: no Enviromental Exposures Xray Exposure: no Medication, drug, or alcohol use since LMP: no Chemical/Other Exposure: no Exposure to Cat Liter: no Hx of Parvovirus (Fifth Disease): no Occupational Exposure to Children: none Active Medications (reviewed today): TERCONAZOLE 0.8 % VAGINAL CREAM (TERCONAZOLE) 1 applicatorful intavaginally qhs x3days METFORMIN HCL 500 MG ORAL TABLET (METFORMIN HCL) Current Allergies (reviewed today): * LATEX (Critical) Objective - Vital Signs Vital Signs: Vital Signs - 12hr 02/13/21 02/13/21 02/13/21 09:37 09:42 09:43 Temperature 98.2 F Pulse Rate 99 H 96 H Respiratory 20 Rate Blood Pressure O2 Sat by Pulse 99 99 98 Oximetry O2 Sat by Pulse Oximetry [ Posterior Bilateral Upper Lobe] 02/13/21 02/13/21 02/13/21 09:44 09:47 09:52 Temperature Pulse Rate 93 H 99 H 101 H Respiratory Rate Blood Pressure 131/61 O2 Sat by Pulse 98 98 Oximetry O2 Sat by Pulse Oximetry [ Posterior Bilateral Upper Lobe] 02/13/21 02/13/21 02/13/21 09:57 10:02 10:07 Temperature Pulse Rate 98 H 98 H 100 H Respiratory Rate Blood Pressure O2 Sat by Pulse 99 98 98 Oximetry O2 Sat by Pulse Oximetry [ Posterior Bilateral Upper Lobe] 02/13/21 02/13/21 02/13/21 10:12 10:17 10:22 Temperature Pulse Rate 91 H 96 H 102 H Respiratory Rate Blood Pressure O2 Sat by Pulse 98 97 96 Oximetry O2 Sat by Pulse Oximetry [ Posterior Bilateral Upper Lobe] 02/13/21 02/13/21 02/13/21 10:27 10:32 10:37 Temperature Pulse Rate 99 H 105 H 101 H Respiratory Rate Blood Pressure O2 Sat by Pulse 98 98 98 Oximetry O2 Sat by Pulse Oximetry [ Posterior Bilateral Upper Lobe] 02/13/21 02/13/21 02/13/21 10:42 10:52 10:57 Temperature Pulse Rate 100 H 101 H 107 H Respiratory Rate Blood Pressure O2 Sat by Pulse 97 99 99 Oximetry O2 Sat by Pulse Oximetry [ Posterior Bilateral Upper Lobe] 02/13/21 02/13/21 02/13/21 11:02 11:07 11:12 Temperature Pulse Rate 110 H 103 H 98 H Respiratory Rate Blood Pressure 117/64 O2 Sat by Pulse 99 98 99 Oximetry O2 Sat by Pulse Oximetry [ Posterior Bilateral Upper Lobe] 02/13/21 02/13/21 02/13/21 11:17 11:20 11:22 Temperature Pulse Rate 93 H 106 H Respiratory Rate Blood Pressure O2 Sat by Pulse 99 99 Oximetry O2 Sat by Pulse 98 Oximetry [ Posterior Bilateral Upper Lobe] 02/13/21 02/13/21 02/13/21 11:27 11:32 11:37 Temperature Pulse Rate 104 H 104 H 100 H Respiratory Rate Blood Pressure O2 Sat by Pulse 98 99 99 Oximetry O2 Sat by Pulse Oximetry [ Posterior Bilateral Upper Lobe] 02/13/21 02/13/21 02/13/21 11:47 11:52 11:57 Temperature Pulse Rate 114 H 109 H 104 H Respiratory Rate Blood Pressure O2 Sat by Pulse 98 99 98 Oximetry O2 Sat by Pulse Oximetry [ Posterior Bilateral Upper Lobe] 02/13/21 02/13/21 02/13/21 12:02 12:07 12:12 Temperature Pulse Rate 99 H 102 H 101 H Respiratory Rate Blood Pressure O2 Sat by Pulse 98 99 97 Oximetry O2 Sat by Pulse Oximetry [ Posterior Bilateral Upper Lobe] 02/13/21 02/13/21 02/13/21 12:17 12:22 12:27 Temperature Pulse Rate 103 H 96 H 97 H Respiratory Rate Blood Pressure O2 Sat by Pulse 99 98 98 Oximetry O2 Sat by Pulse Oximetry [ Posterior Bilateral Upper Lobe] 02/13/21 02/13/21 02/13/21 12:30 12:34 12:39 Temperature Pulse Rate 97 H 94 H 103 H Respiratory Rate Blood Pressure 125/58 O2 Sat by Pulse 99 99 Oximetry O2 Sat by Pulse Oximetry [ Posterior Bilateral Upper Lobe] 02/13/21 02/13/21 02/13/21 12:44 12:49 12:54 Temperature Pulse Rate 94 H 103 H 102 H Respiratory Rate Blood Pressure O2 Sat by Pulse 100 99 92 Oximetry O2 Sat by Pulse Oximetry [ Posterior Bilateral Upper Lobe] 02/13/21 02/13/21 02/13/21 12:55 12:59 13:04 Temperature Pulse Rate 103 H 100 H 102 H Respiratory Rate Blood Pressure O2 Sat by Pulse 90 100 99 Oximetry O2 Sat by Pulse Oximetry [ Posterior Bilateral Upper Lobe] 02/13/21 02/13/21 02/13/21 13:09 13:12 13:14 Temperature Pulse Rate 99 H 94 H 101 H Respiratory Rate Blood Pressure 121/57 O2 Sat by Pulse 100 99 Oximetry O2 Sat by Pulse Oximetry [ Posterior Bilateral Upper Lobe] 02/13/21 02/13/21 02/13/21 13:19 13:24 13:29 Temperature Pulse Rate 98 H 97 H 102 H Respiratory Rate Blood Pressure O2 Sat by Pulse 99 99 100 Oximetry O2 Sat by Pulse Oximetry [ Posterior Bilateral Upper Lobe] 02/13/21 02/13/21 02/13/21 13:34 13:39 13:44 Temperature Pulse Rate 96 H 102 H 99 H Respiratory Rate Blood Pressure O2 Sat by Pulse 99 99 99 Oximetry O2 Sat by Pulse Oximetry [ Posterior Bilateral Upper Lobe] 02/13/21 02/13/21 02/13/21 13:49 13:54 13:59 Temperature Pulse Rate 100 H 104 H 97 H Respiratory Rate Blood Pressure O2 Sat by Pulse 99 100 99 Oximetry O2 Sat by Pulse Oximetry [ Posterior Bilateral Upper Lobe] 02/13/21 02/13/21 02/13/21 14:04 14:09 14:14 Temperature Pulse Rate 101 H 104 H 106 H Respiratory Rate Blood Pressure O2 Sat by Pulse 99 99 98 Oximetry O2 Sat by Pulse Oximetry [ Posterior Bilateral Upper Lobe] 02/13/21 02/13/21 02/13/21 14:19 14:24 14:29 Temperature Pulse Rate 102 H 98 H 94 H Respiratory Rate Blood Pressure O2 Sat by Pulse 98 98 99 Oximetry O2 Sat by Pulse Oximetry [ Posterior Bilateral Upper Lobe] 02/13/21 02/13/21 02/13/21 14:34 14:39 14:44 Temperature Pulse Rate 105 H 107 H 101 H Respiratory Rate Blood Pressure O2 Sat by Pulse 99 99 99 Oximetry O2 Sat by Pulse Oximetry [ Posterior Bilateral Upper Lobe] 02/13/21 02/13/21 02/13/21 14:49 14:54 14:59 Temperature Pulse Rate 107 H 104 H 103 H Respiratory Rate Blood Pressure O2 Sat by Pulse 99 98 98 Oximetry O2 Sat by Pulse Oximetry [ Posterior Bilateral Upper Lobe] 02/13/21 02/13/21 02/13/21 15:19 15:24 15:29 Temperature Pulse Rate 108 H 107 H 102 H Respiratory Rate Blood Pressure O2 Sat by Pulse 99 100 99 Oximetry O2 Sat by Pulse Oximetry [ Posterior Bilateral Upper Lobe] 02/13/21 02/13/21 02/13/21 15:34 15:39 15:44 Temperature Pulse Rate 101 H 100 H 99 H Respiratory Rate Blood Pressure O2 Sat by Pulse 99 98 100 Oximetry O2 Sat by Pulse Oximetry [ Posterior Bilateral Upper Lobe] 02/13/21 02/13/21 02/13/21 15:48 15:49 15:54 Temperature Pulse Rate 98 H 100 H 99 H Respiratory Rate Blood Pressure 121/58 O2 Sat by Pulse 100 99 Oximetry O2 Sat by Pulse Oximetry [ Posterior Bilateral Upper Lobe] 02/13/21 02/13/21 02/13/21 15:57 15:59 16:02 Temperature Pulse Rate 92 H 104 H 95 H Respiratory Rate Blood Pressure 129/61 130/62 O2 Sat by Pulse 99 Oximetry O2 Sat by Pulse Oximetry [ Posterior Bilateral Upper Lobe] 02/13/21 02/13/21 02/13/21 16:04 16:07 16:09 Temperature Pulse Rate 96 H 92 H 93 H Respiratory Rate Blood Pressure 129/62 O2 Sat by Pulse 99 100 Oximetry O2 Sat by Pulse Oximetry [ Posterior Bilateral Upper Lobe] 02/13/21 02/13/21 02/13/21 16:14 16:19 16:23 Temperature Pulse Rate 96 H 89 86 Respiratory Rate Blood Pressure 121/57 O2 Sat by Pulse 99 100 Oximetry O2 Sat by Pulse Oximetry [ Posterior Bilateral Upper Lobe] 02/13/21 02/13/21 02/13/21 16:24 16:29 16:34 Temperature Pulse Rate 87 94 H 91 H Respiratory Rate Blood Pressure O2 Sat by Pulse 98 98 99 Oximetry O2 Sat by Pulse Oximetry [ Posterior Bilateral Upper Lobe] 02/13/21 02/13/21 02/13/21 16:39 16:44 16:49 Temperature Pulse Rate 90 90 89 Respiratory Rate Blood Pressure O2 Sat by Pulse 99 97 99 Oximetry O2 Sat by Pulse Oximetry [ Posterior Bilateral Upper Lobe] 02/13/21 02/13/21 02/13/21 16:54 16:59 17:02 Temperature Pulse Rate 83 86 82 Respiratory Rate Blood Pressure 131/60 O2 Sat by Pulse 100 100 Oximetry O2 Sat by Pulse Oximetry [ Posterior Bilateral Upper Lobe] 02/13/21 02/13/21 02/13/21 17:04 17:09 17:20 Temperature Pulse Rate 85 87 84 Respiratory Rate Blood Pressure O2 Sat by Pulse 100 100 100 Oximetry O2 Sat by Pulse Oximetry [ Posterior Bilateral Upper Lobe] 02/13/21 02/13/21 02/13/21 17:25 17:30 17:32 Temperature Pulse Rate 95 H 88 84 Respiratory Rate Blood Pressure 124/56 O2 Sat by Pulse 100 100 Oximetry O2 Sat by Pulse Oximetry [ Posterior Bilateral Upper Lobe] 02/13/21 02/13/21 02/13/21 17:35 17:40 17:45 Temperature Pulse Rate 88 85 87 Respiratory Rate Blood Pressure O2 Sat by Pulse 99 99 100 Oximetry O2 Sat by Pulse Oximetry [ Posterior Bilateral Upper Lobe] 02/13/21 02/13/21 02/13/21 17:50 17:55 18:00 Temperature Pulse Rate 86 91 H 85 Respiratory Rate Blood Pressure O2 Sat by Pulse 100 100 99 Oximetry O2 Sat by Pulse Oximetry [ Posterior Bilateral Upper Lobe] 02/13/21 02/13/21 02/13/21 18:03 18:05 18:10 Temperature Pulse Rate 83 85 87 Respiratory Rate Blood Pressure 132/60 O2 Sat by Pulse 100 99 Oximetry O2 Sat by Pulse Oximetry [ Posterior Bilateral Upper Lobe] 02/13/21 02/13/21 02/13/21 18:15 18:20 18:25 Temperature Pulse Rate 83 89 84 Respiratory Rate Blood Pressure O2 Sat by Pulse 100 100 100 Oximetry O2 Sat by Pulse Oximetry [ Posterior Bilateral Upper Lobe] 02/13/21 02/13/21 02/13/21 18:30 18:33 18:35 Temperature Pulse Rate 82 89 82 Respiratory Rate Blood Pressure 127/64 O2 Sat by Pulse 100 100 Oximetry O2 Sat by Pulse Oximetry [ Posterior Bilateral Upper Lobe] 02/13/21 02/13/21 02/13/21 18:37 18:40 18:43 Temperature Pulse Rate 68 90 65 Respiratory Rate Blood Pressure O2 Sat by Pulse 68 L 100 91 Oximetry O2 Sat by Pulse Oximetry [ Posterior Bilateral Upper Lobe] 02/13/21 02/13/21 02/13/21 18:45 18:50 18:55 Temperature Pulse Rate 90 89 82 Respiratory Rate Blood Pressure O2 Sat by Pulse 100 100 100 Oximetry O2 Sat by Pulse Oximetry [ Posterior Bilateral Upper Lobe] 02/13/21 02/13/21 02/13/21 19:00 19:03 19:05 Temperature Pulse Rate 91 H 84 89 Respiratory Rate Blood Pressure 134/58 O2 Sat by Pulse 99 99 Oximetry O2 Sat by Pulse Oximetry [ Posterior Bilateral Upper Lobe] 02/13/21 02/13/21 02/13/21 19:10 19:15 19:20 Temperature Pulse Rate 89 86 90 Respiratory Rate Blood Pressure O2 Sat by Pulse 99 99 98 Oximetry O2 Sat by Pulse Oximetry [ Posterior Bilateral Upper Lobe] 02/13/21 02/13/21 02/13/21 19:25 19:30 19:33 Temperature Pulse Rate 86 87 83 Respiratory Rate Blood Pressure 127/59 O2 Sat by Pulse 98 100 Oximetry O2 Sat by Pulse Oximetry [ Posterior Bilateral Upper Lobe] 02/13/21 02/13/21 02/13/21 19:35 19:40 19:45 Temperature Pulse Rate 86 89 83 Respiratory Rate Blood Pressure O2 Sat by Pulse 100 99 99 Oximetry O2 Sat by Pulse Oximetry [ Posterior Bilateral Upper Lobe] 02/13/21 02/13/21 02/13/21 19:50 19:53 19:55 Temperature Pulse Rate 96 H 94 H 96 H Respiratory Rate Blood Pressure 124/58 O2 Sat by Pulse 100 100 Oximetry O2 Sat by Pulse Oximetry [ Posterior Bilateral Upper Lobe] 02/13/21 02/13/21 02/13/21 20:00 20:03 20:05 Temperature Pulse Rate 84 83 92 H Respiratory Rate Blood Pressure 126/58 O2 Sat by Pulse 100 100 Oximetry O2 Sat by Pulse Oximetry [ Posterior Bilateral Upper Lobe] 02/13/21 02/13/21 02/13/21 20:10 20:15 20:20 Temperature Pulse Rate 89 88 94 H Respiratory Rate Blood Pressure O2 Sat by Pulse 100 100 100 Oximetry O2 Sat by Pulse Oximetry [ Posterior Bilateral Upper Lobe] 02/13/21 02/13/21 02/13/21 20:25 20:30 20:33 Temperature Pulse Rate 95 H 86 95 H Respiratory Rate Blood Pressure 126/59 O2 Sat by Pulse 100 100 Oximetry O2 Sat by Pulse Oximetry [ Posterior Bilateral Upper Lobe] 02/13/21 02/13/21 02/13/21 20:35 20:38 20:40 Temperature Pulse Rate 88 79 Respiratory Rate Blood Pressure 103/54 O2 Sat by Pulse 98 100 Oximetry O2 Sat by Pulse 81 L Oximetry [ Posterior Bilateral Upper Lobe] 02/13/21 02/13/21 02/13/21 20:45 20:48 20:50 Temperature Pulse Rate 102 H 84 88 Respiratory Rate Blood Pressure 123/58 O2 Sat by Pulse 96 99 Oximetry O2 Sat by Pulse Oximetry [ Posterior Bilateral Upper Lobe] 02/13/21 02/13/21 02/13/21 20:52 20:55 20:56 Temperature Pulse Rate 94 H 98 H 107 H Respiratory Rate Blood Pressure 113/58 108/54 O2 Sat by Pulse 100 Oximetry O2 Sat by Pulse Oximetry [ Posterior Bilateral Upper Lobe] 02/13/21 02/13/21 02/13/21 21:00 21:03 21:05 Temperature Pulse Rate 95 H 111 H 102 H Respiratory Rate Blood Pressure 155/88 O2 Sat by Pulse 100 99 Oximetry O2 Sat by Pulse Oximetry [ Posterior Bilateral Upper Lobe] 02/13/21 02/13/21 02/13/21 21:07 21:10 21:14 Temperature Pulse Rate 96 H 99 H 100 H Respiratory Rate Blood Pressure 130/56 109/52 O2 Sat by Pulse 99 Oximetry O2 Sat by Pulse Oximetry [ Posterior Bilateral Upper Lobe] 02/13/21 02/13/21 02/13/21 21:15 21:18 21:20 Temperature Pulse Rate 95 H 112 H 102 H Respiratory Rate Blood Pressure 110/54 O2 Sat by Pulse 100 99 Oximetry O2 Sat by Pulse Oximetry [ Posterior Bilateral Upper Lobe] 1002/13/21 02/13/21 21:21 21:25 21:29 Temperature Pulse Rate 102 H 69 100 H Respiratory Rate Blood Pressure 115/56 120/55 O2 Sat by Pulse 100 Oximetry O2 Sat by Pulse Oximetry [ Posterior Bilateral Upper Lobe] 02/13/21 02/13/21 02/13/21 21:30 21:31 21:32 Temperature Pulse Rate 106 H 88 100 H Respiratory Rate Blood Pressure 117/51 O2 Sat by Pulse 97 85 Oximetry O2 Sat by Pulse Oximetry [ Posterior Bilateral Upper Lobe] - Exam Lungs: Normal air movement Abdomen: Present: normal appearance, soft Vulva: both: normal Uterus: Present: normal FHR: category 1 Uterine Contraction Monitor Mode: Internal Cervical Dilatation: 6 Cervical Effacement Percentage: 60 station: -2 Uterine Contraction Frequency (min): 3-4 Uterine Contraction Pattern: Regular Uterine Contraction Intensity: Moderate Extremities: normal - Labs Labs: Abnormal Labs 02/13/21 02/13/21 02/13/21 11:11 11:29 14:38 MCV 71 L MCH 23 L RDW 17.8 H POC Glucose 122 H 135 H Laboratory Results - last 24 hr 02/13/21 02/13/21 02/13/21 09:15 11:11 11:11 WBC 6.5 RBC 4.56 Hgb 10.3 Hct 32.3 MCV 71 L MCH 23 L MCHC 32 RDW 17.8 H Plt Count 262 POC Glucose Syphilis IgG Antibody Nonreactive Coronavirus (PCR) Negative Blood Type Antibody Screen 02/13/21 02/13/21 02/13/21 11:11 11:29 14:38 WBC RBC Hgb Hct MCV MCH MCHC RDW Plt Count POC Glucose 122 H 135 H Syphilis IgG Antibody Coronavirus (PCR) Blood Type O POSITIVE Antibody Screen Negative
--- NOTE | 2021-02-14 00:50 | Procedure Note ---
OB Delivery Note - Delivery Date of Delivery: 02/14/21 [employer]: HELENA TEIXEIRA (Dorita Vergara [facility]) Estimated blood loss: 100cc - Vaginal Delivery position: OA (WHIT) Delivery induction: other (Cooks Catheter) Delivery augmentation: rupture of membranes, pitocin Delivery monitor: internal FHT, internal uterine Route of delivery: Delivery placenta: spontaneous Delivery cord: nuchal cord, 3 umbilical vessels Episiotomy: none Delivery laceration: none Anesthesia: epidural Delivery comments: Female birthed over intact perineum and placed to maternal abd. Cord clamped and cut after cessation of pulse. Placenta birthed spontaneously and intact, noted to have abnormal cord insertion (velamentous cord insertion), sent to pathology. Fundus firm and lochia scant, QBL 100ml. Castia 7#, Apgars 8/9. No lacerations, counts correct, Mom and baby LDR stable. - A at 1 minute: 8 at 5 minutes: 9 Gender: Female (Castia 7#)
[2021-02-14] MEDS ORDERED: LANOLIN/ZINC/DIMETHICONE (LANSINOH) 7 GM TP PRN ×2 (00:52→04:56)
[2021-02-14] MEDS ORDERED: MAGNESIUM HYDROXIDE (MOM) ORAL LIQD UDC PO PRN ×2 (00:52→04:56)
[2021-02-14] MEDS ORDERED: ACETAMINOPHEN 325 MG TAB PO PRN ×2 (00:52→04:56)
[2021-02-14] MEDS ORDERED: PROMETHAZINE 25 MG RECT SUPP PR PRN (00:52)
[2021-02-14] MEDS ORDERED: diphenhydrAMINE 25 MG CAP PO PRN ×2 (00:52→04:56)
[2021-02-14] MEDS ORDERED: WITCH HAZEL/ GLYCERIN PAD TP PRN ×2 (00:52→04:56)
[2021-02-14] MEDS ORDERED: BENZOCAINE/MENTHOL 20/0.5% TOP SPRAY 56 GM TP PRN ×2 (00:52→04:56)
[2021-02-14] MEDS ORDERED: PROMETHAZINE 25 MG TAB PO PRN ×2 (00:52→04:56)
[2021-02-14] MEDS ORDERED: ONDANSETRON 4 MG/2 ML INJ IV PRN ×2 (00:52→04:56)
[2021-02-14] MEDS ORDERED: IBUPROFEN 800 MG TAB PO SCH (01:00)
--- NOTE | 2021-02-14 01:16 | Event Note ---
Date: 02/14/21 Resume insulin orders at half dose once eating regular diet.
[2021-02-14] MEDS ORDERED: KETOROLAC 30 MG/1 ML INJ IV PRN (04:56)
[2021-02-14] MEDS ORDERED: OXYTOCIN DRIP 30 UNITS/500 ML BAG IV SCH (05:00)
[2021-02-14] MEDS: IBUPROFEN 800 MG TAB PO SCH ×2 (06:30→12:00)
[2021-02-14] MEDS ORDERED: INSULIN NPH, HUMAN 100 UNIT/1 ML SUB-Q SCH ×2 (08:00→21:00)
[2021-02-14] MEDS ORDERED: INSULIN REGULAR, HUMAN 100 UNITS/1 ML SUB-Q SCH ×2 (08:00→17:00)
[2021-02-14] MEDS ORDERED: PRENATAL VIT27-FE FUMARATE-FOLIC ACID VIT TAB PO SCH ×2 (10:00)
[2021-02-14] MEDS ORDERED: DOCUSATE SODIUM 100 MG CAP PO SCH (10:00)
[2021-02-14] MEDS: DOCUSATE SODIUM 100 MG CAP PO SCH ×2 (11:10→21:54)
--- NOTE | 2021-02-14 11:55 | Progress Note ---
Assessment and Plan A: 40 y.o. s/p . Type 2 DM. P: Continue with care. Continue with accuchecks and insulin regime as ordered. Anticipate discharge home on 02/15. Subjective - Subjective Date of service: 02/14/21 Principal diagnosis: s/p approximately 12 hours, Type 2 DM Patient reports: appetite normal, voiding normally, pain well controlled, flatus, ambulating normally [place]: doing well Objective - Vital Signs Latest vital signs: Vital Signs Temp Pulse Resp BP Pulse Ox Pulse Ox 02/14/21 09:06 98.3 F 89 18 121/58 98 02/14/21 07:30 18 02/14/21 06:30 20 02/14/21 05:54 98.1 F 94 H 18 123/62 99 100 02/14/21 04:51 78 89 02/14/21 04:50 89 97 02/14/21 04:45 94 H 99 02/14/21 04:42 72 86 02/14/21 04:40 88 99 02/14/21 04:38 92 H 117/57 02/14/21 04:35 95 H 99 02/14/21 04:30 85 99 02/14/21 04:27 102 H 94 02/14/21 04:25 92 H 100 02/14/21 04:23 83 123/55 02/14/21 04:20 85 99 02/14/21 04:15 103 H 98 02/14/21 04:10 86 98 02/14/21 04:08 90 117/56 02/14/21 04:05 86 99 02/14/21 04:00 92 H 99 02/14/21 03:55 89 98 02/14/21 03:53 86 110/52 02/14/21 03:50 89 99 02/14/21 03:45 89 99 02/14/21 03:40 90 99 02/14/21 03:38 87 114/59 02/14/21 03:35 96 H 99 02/14/21 03:30 98 H 99 02/14/21 03:25 85 98 02/14/21 03:23 82 124/60 02/14/21 03:20 89 99 02/14/21 03:15 80 98 02/14/21 03:10 80 99 02/14/21 03:08 85 127/55 02/14/21 03:05 87 98 02/14/21 03:00 79 99 02/14/21 02:55 96 H 99 02/14/21 02:53 80 119/56 02/14/21 02:50 82 99 02/14/21 02:45 93 H 100 02/14/21 02:40 86 99 02/14/21 02:38 80 120/58 02/14/21 02:35 98 H 100 02/14/21 02:30 91 H 99 02/14/21 02:25 94 H 99 02/14/21 02:23 87 122/60 02/14/21 02:20 87 100 02/14/21 02:15 96 H 100 02/14/21 02:10 82 100 02/14/21 02:08 79 115/57 02/14/21 02:05 81 100 02/14/21 02:00 98 H 100 02/14/21 01:55 92 H 100 02/14/21 01:53 96 H 113/66 02/14/21 01:50 96 H 99 02/14/21 01:45 79 100 02/14/21 01:43 99 H 87 02/14/21 01:40 100 H 99 02/14/21 01:35 88 100 02/14/21 01:30 98 H 100 02/14/21 01:25 91 H 100 02/14/21 01:23 86 114/58 02/14/21 01:20 87 100 02/14/21 01:15 96 H 100 02/14/21 01:10 82 100 02/14/21 01:08 95 H 111/59 02/14/21 01:05 94 H 99 02/14/21 01:00 96 H 100 02/14/21 00:55 100 H 100 02/14/21 00:50 100 H 100 02/14/21 00:45 106 H 100 02/14/21 00:40 104 H 100 02/14/21 00:38 103 H 108/68 02/14/21 00:35 111 H 100 02/14/21 00:30 117 H 98 02/14/21 00:25 95 H 100 02/14/21 00:23 104 H 112/54 02/14/21 00:21 105 H 93 02/14/21 00:20 87 100 02/14/21 00:15 79 100 02/14/21 00:10 79 100 02/14/21 00:09 72 112/59 02/14/21 00:05 86 100 02/14/21 00:00 75 100 02/13/21 23:55 84 100 02/13/21 23:51 75 105/53 02/13/21 23:50 76 100 02/13/21 23:48 76 103/50 02/13/21 23:45 74 100 02/13/21 23:42 73 106/51 02/13/21 23:40 76 100 02/13/21 23:38 70 107/55 02/13/21 23:35 78 100 02/13/21 23:31 76 100/50 02/13/21 23:30 71 100 02/13/21 23:26 80 108/54 02/13/21 23:25 77 100 02/13/21 23:23 75 107/52 02/13/21 23:20 82 100 02/13/21 23:19 78 113/53 02/13/21 23:15 103 H 97 02/13/21 23:13 78 96/47 02/13/21 23:10 84 100 02/13/21 23:06 89 102/51 02/13/21 23:05 85 100 02/13/21 23:00 93 H 100 02/13/21 22:55 102 H 99 02/13/21 22:53 126 H 143/63 02/13/21 22:50 103 H 100 02/13/21 22:45 104 H 100 02/13/21 22:42 108 H 104/70 02/13/21 22:40 104 H 100 02/13/21 22:37 97 H 136/63 02/13/21 22:35 89 100 02/13/21 22:33 98 H 125/76 02/13/21 22:30 102 H 100 02/13/21 22:25 99 H 100 02/13/21 22:22 109 H 114/63 02/13/21 22:20 110 H 100 02/13/21 22:16 111 H 109/55 02/13/21 22:15 104 H 99 02/13/21 22:11 101 H 100/55 02/13/21 22:10 101 H 100 02/13/21 22:07 88 98/49 02/13/21 22:05 91 H 100 02/13/21 22:00 94 H 100 02/13/21 21:55 98 H 105/51 100 02/13/21 21:50 86 100 02/13/21 21:46 83 71/35 02/13/21 21:45 85 99 02/13/21 21:42 74 72/31 02/13/21 21:40 78 100 02/13/21 21:38 93 H 86/43 02/13/21 21:35 87 100 02/13/21 21:32 100 H 117/51 02/13/21 21:31 88 85 02/13/21 21:30 106 H 97 02/13/21 21:29 100 H 120/55 02/13/21 21:25 69 100 02/13/21 21:21 102 H 115/56 02/13/21 21:20 102 H 99 02/13/21 21:18 112 H 110/54 02/13/21 21:15 95 H 100 02/13/21 21:14 100 H 109/52 02/13/21 21:10 99 H 99 02/13/21 21:07 96 H 130/56 02/13/21 21:05 102 H 99 02/13/21 21:03 111 H 155/88 02/13/21 21:00 95 H 100 02/13/21 20:56 107 H 108/54 02/13/21 20:55 98 H 100 02/13/21 20:52 94 H 113/58 02/13/21 20:50 88 99 02/13/21 20:48 84 123/58 02/13/21 20:45 102 H 96 02/13/21 20:40 79 103/54 100 02/13/21 20:38 81 L 02/13/21 20:35 88 98 02/13/21 20:33 95 H 126/59 02/13/21 20:30 86 100 02/13/21 20:25 95 H 100 02/13/21 20:20 94 H 100 02/13/21 20:15 88 100 02/13/21 20:10 89 100 02/13/21 20:05 92 H 100 02/13/21 20:03 83 126/58 02/13/21 20:00 84 100 02/13/21 19:55 96 H 100 10/14/21 19:53 94 H 124/58 02/13/21 19:50 96 H 100 02/13/21 19:45 83 99 02/13/21 19:40 89 99 02/13/21 19:35 86 100 02/13/21 19:33 83 127/59 02/13/21 19:30 87 100 02/13/21 19:25 86 98 02/13/21 19:20 90 98 02/13/21 19:15 86 99 02/13/21 19:10 89 99 02/13/21 19:05 89 99 02/13/21 19:03 84 134/58 02/13/21 19:00 91 H 99 02/13/21 18:55 82 100 02/13/21 18:50 89 100 02/13/21 18:45 90 100 02/13/21 18:43 65 91 02/13/21 18:40 90 100 02/13/21 18:37 68 68 L 02/13/21 18:35 82 100 02/13/21 18:33 89 127/64 02/13/21 18:30 82 100 02/13/21 18:25 84 100 02/13/21 18:20 89 100 02/13/21 18:15 83 100 02/13/21 18:10 87 99 02/13/21 18:05 85 100 02/13/21 18:03 83 132/60 02/13/21 18:00 85 99 02/13/21 17:55 91 H 100 02/13/21 17:50 86 100 02/13/21 17:45 87 100 02/13/21 17:40 85 99 02/13/21 17:35 88 99 02/13/21 17:32 84 124/56 02/13/21 17:30 88 100 02/13/21 17:25 95 H 100 02/13/21 17:20 84 100 02/13/21 17:09 87 100 02/13/21 17:04 85 100 02/13/21 17:02 82 131/60 02/13/21 16:59 86 100 02/13/21 16:54 83 100 02/13/21 16:49 89 99 02/13/21 16:44 90 97 02/13/21 16:39 90 99 10/14/21 16:34 91 H 99 10/14/21 16:29 94 H 98 10/14/21 16:24 87 98 10/14/21 16:23 86 121/57 10/14/21 16:19 89 100 10/14/21 16:14 96 H 99 10/14/21 16:09 93 H 100 10/14/21 16:07 92 H 129/62 10/14/21 16:04 96 H 99 10/14/21 16:02 95 H 130/62 10/14/21 15:59 104 H 99 10/14/21 15:57 92 H 129/61 10/14/21 15:54 99 H 99 10/14/21 15:49 100 H 100 10/14/21 15:48 98 H 121/58 10/14/21 15:44 99 H 100 10/14/21 15:39 100 H 98 10/14/21 15:34 101 H 99 10/14/21 15:29 102 H 99 10/14/21 15:24 107 H 100 10/14/21 15:19 108 H 99 10/14/21 14:59 103 H 98 10/14/21 14:54 104 H 98 10/14/21 14:49 107 H 99 10/14/21 14:44 101 H 99 10/14/21 14:39 107 H 99 10/14/21 14:34 105 H 99 10/14/21 14:29 94 H 99 10/14/21 14:24 98 H 98 10/14/21 14:19 102 H 98 10/14/21 14:14 106 H 98 10/14/21 14:09 104 H 99 10/14/21 14:04 101 H 99 10/14/21 13:59 97 H 99 10/14/21 13:54 104 H 100 10/14/21 13:49 100 H 99 10/14/21 13:44 99 H 99 10/14/21 13:39 102 H 99 10/14/21 13:34 96 H 99 10/14/21 13:29 102 H 100 10/14/21 13:24 97 H 99 10/14/21 13:19 98 H 99 10/14/21 13:14 101 H 99 10/14/21 13:12 94 H 121/57 10/14/21 13:09 99 H 100 10/14/21 13:04 102 H 99 02/13/21 12:59 100 H 100 02/13/21 12:55 103 H 90 02/13/21 12:54 102 H 92 02/13/21 12:49 103 H 99 02/13/21 12:44 94 H 100 02/13/21 12:39 103 H 99 02/13/21 12:34 94 H 99 02/13/21 12:30 97 H 125/58 02/13/21 12:27 97 H 98 02/13/21 12:22 96 H 98 02/13/21 12:17 103 H 99 02/13/21 12:12 101 H 97 02/13/21 12:07 102 H 99 02/13/21 12:02 99 H 98 02/13/21 11:57 104 H 98 Intake and Output 02/13/21 02/14/21 02/14/21 22:59 06:59 14:59 Intake Total 842.767 120 Output Total 500 Balance 842.767 -380 Intake: IV 842.767 Lactated Ringers 1,000 ml 808.333 @ 125 mls/hr IV DIRECT DANIELITO Rx#:[id number] PITOCin/NS 30 UNIT/500ML 34.434 30 units In 500 ml @ 4 mls/hr IV TITR DANIELITO Rx#: [id number] Intake, Free Water 120 Output: Urine 500 Void 500 Other: Total, Output Amount 500 # Voids Void 1 1 Estimated Blood Loss 100 - Exam Narrative Exam: Will continue to monitor glucose levels. Levels have been 122-138. These levels appear to have been after eating. No fasting glucose levels recorded. Breasts: Present: deferred Cardiovascular: Present: Regular rate Lungs: Present: Normal air movement Abdomen: Present: normal appearance, soft Uterus: Present: normal, firm Extremities: Present: edema (Trace edema noted to lower extremities.) - Labs Labs: Abnormal lab results 02/13/21 02/13/21 02/13/21 Range/Units 11:11 14:38 22:05 MCV 71 L (79-97) fl MCH 23 L (28-32) pg RDW 17.8 H (13.2-15.2) % POC Glucose 135 H 114 H (70-105) mg/dL 02/14/21 Range/Units 09:07 MCV (79-97) fl MCH (28-32) pg RDW (13.2-15.2) % POC Glucose 138 H (70-105) mg/dL
[2021-02-14] MEDS ORDERED: PNEUMOCOCCAL 23 Valent 0.5 ML VIAL IM ONE (12:00)
[2021-02-14] MEDS ORDERED: FLU VACC QUAD 2021-22(6MOS UP)/PF 60 MCG/0.5 ML SYRINGE IM ONE (12:00)
--- NOTE | 2021-02-14 12:07 | Post Anesthesia Evaluation ---
- Post Anesthesia Evaluation Patient Participated: Yes Airway Patent: Yes Stable Respiratory Function: Yes Nausea/Vomiting: No Temp > 96.8F: Yes Pain Manageable: Yes Adequeate Hydration: Yes Anesthesia Complications: No Block Receding Appropriately: Yes
[2021-02-14 20:33] LABS: Hemoglobin 9.2 gm/dl (10.1-14.3)
[2021-02-15] MEDS: IBUPROFEN 800 MG TAB PO SCH
[2021-02-15] MEDS ORDERED: TETANUS,DIPH,PERTUSS(ACELL) VACCINE 0.5 ML SYRINGE IM ONE (06:00)
[2021-02-15 09:05] VITALS: BP 124/63
--- NOTE | 2021-02-15 10:21 | Discharge Summary ---
Providers - Providers Date of Admission: 02/13/21 08:55 Date of discharge: 02/15/21 Attending physician: ARLETTE MEJIA Primary care physician: ARLETTE MEJIA Hospitalization Reason for admission: IOL Condition: Good Pertinent studies: H&H 10.4/30.8, asymptomatic mild anemia d/t acute bloodloss. Procedures: Hospital course: Uncomplicated hospital and course. Lochia scant and fundus firm, VSSAF Disposition: 01 HOME / SELF CARE / HOMELESS Final Discharge Diagnosis (Prints w/discharge instructions): Time spent for discharge: 15 - Discharge Diagnoses (1) Diabetes mellitus with insulin therapy Status: Acute (2) (normal spontaneous vaginal delivery) Status: Acute Core Measure Documentation - Palliative Care Palliative Care/ Comfort Measures: Not Applicable - Core Measures Any of the following diagnoses?: none Exam - Constitutional Vitals: Temp Pulse Resp BP Pulse Ox 98.0 F 80 18 124/63 99 02/15/21 08:11 02/15/21 08:11 02/15/21 08:11 02/15/21 08:11 02/15/21 08:15 General appearance: Present: well-nourished - EENT Eyes: Present: PERRL, EOM intact ENT: hearing intact, clear oral mucosa - Neck Neck: Present: normal ROM - Respiratory Respiratory effort: normal - Abdominal General gastrointestinal: Present: soft, non-tender - Integumentary Integumentary: Present: clear, warm, dry Plan Activity: no restrictions Additional Instructions: Current insulin orders: NPH 37 units with breakfast and 16 at bedtime. Regular 22 units with breakfast and 18 units with dinner Follow up with: ARLETTE MEJIA MD [Primary Care Provider] - 03/17/21 (Congratulations! Please call [phone] to schedule your follow-up appointment for 4 weeks. Please, make an appointment to follow-up with you primary care doctor for management of your diabetes.)
== END 2021-02-15 14:53 | disposition home or self-care (01) | DRG 774 ==
LOC: LD 08:55 → OB 02-14 05:46
PROVIDERS: ADMIT Obstetrics & Gynecology; ATTEND Obstetrics & Gynecology
PROC: 10E0XZZ Delivery of Products of Conception, External Approach (ICD-10-PCS; principal; 2021-02-13)
PROC: 3E0R3BZ Introduction of Anesthetic Agent into Spinal Canal, Percutaneous Approach (ICD-10-PCS; 2021-02-13)
PROC: 00HU33Z Insertion of Infusion Device into Spinal Canal, Percutaneous Approach (ICD-10-PCS; 2021-02-13)
DX: O69.81X0 Labor and delivery complicated by cord around neck, without compression, not applicable or unspecified (principal); O98.52 Other viral diseases complicating childbirth; B00.9 Herpesviral infection, unspecified; O24.92 Unspecified diabetes mellitus in childbirth; Z3A.37 37 weeks gestation of pregnancy; Z37.0 Single live birth; Z20.822 Contact with and (suspected) exposure to COVID-19
CPT/HCPCS: 36415; 59025; 82962; 85014; 85018; 85027; 86592; 86850; 86900; 86901; 88307; 96360; 96365; 96366; G0378; J0595; J1815; J2590; J7120; U0003

== ENCOUNTER 2022-01-08 14:09 | Emergency (ER) | payer MEDICAID ==
--- NOTE | 2022-01-08 16:16 | XRay Report ---
CHEST 2 VIEWS INDICATION / CLINICAL INFORMATION: Upper Respiratory Infection. COMPARISON: None available. FINDINGS: SUPPORT DEVICES: None. HEART / MEDIASTINUM: No significant abnormality. LUNGS / PLEURA: No significant pulmonary or pleural abnormality. No pneumothorax. ADDITIONAL FINDINGS: No significant additional findings. IMPRESSION: 1. No acute findings. Signer Name: Tamir Whitney MD Signed: 01/08/2022 4:12 PM Workstation Name: [id number]
[2022-01-08 16:58] LABS: Alanine Aminotransferase 15 units/L (7-56); Albumin 4.2 g/dL (3.9-5); Blood Urea Nitrogen 5 mg/dL (7-17); Calcium 8.3 mg/dL (8.4-10.2); Hemolysis Index 6
[2022-01-08 17:05] LABS: BUN/Creatinine Ratio 10
[2022-01-08 17:18] LABS: Hematocrit 35.6 % (30.3-42.9); Hemoglobin 11.5 gm/dl (10.1-14.3); Mean Corpuscular HGB Conc 32 % (30-34); Mean Corpuscular Volume 73 fl (79-97); Platelet Count 178 K/mm3 (140-440); Red Blood Count 4.91 M/mm3 (3.65-5.03); Red Cell Distribution Width 17.8 % (13.2-15.2)
[2022-01-08 18:52] LABS: Hypochromasia 1+; Platelet Estimate Consistent w Auto; Tear Drop Cells Few; Total Cells Counted 100
[2022-01-09 00:24] VITALS: BP 137/72
--- NOTE | 2022-01-09 10:55 | Electrocardiograph Report ---
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
== END 2022-01-09 02:43 | disposition left against medical advice (07) ==
LOC: ED 14:09
DX: R06.02 Shortness of breath (principal); Z53.21 Procedure and treatment not carried out due to patient leaving prior to being seen by health care provider
CPT/HCPCS: 36415; 71046; 80053; 85007; 85025; 93005